=== PATIENT | male | born 1935 | race African-American/Black ===

== ENCOUNTER 2017-12-24 11:25 | Inpatient (IN) | payer MEDICARE ==
[2017-12-24 12:41] LABS: ADD MAN DIFF? NO
[2017-12-24 12:46] LABS: BASO % 0 % (0-3); EOS # 0.2 x10^3/uL (0.0-0.7); EOS % 3 % (0-3); HEMATOCRIT 36.2 % (39.0-53.0); HEMOGLOBIN 11.6 g/dL (13.0-17.5); LYMPH # 0.9 x10^3/uL (1.0-4.8); LYMPH % 15 % (24-48); MEAN CORPUSCULAR HEMOGLOBIN 30 pg (25-35); MEAN CORPUSCULAR HGB CONC 32 g/dL (31-37); MEAN CORPUSCULAR VOLUME 93 fL (79-100); MONO # 0.6 x10^3/uL (0.0-1.1); MONO % 9 % (0-9); NEUT # 4.6 x10^3uL (1.8-7.7); NEUT % 73 % (31-73); PLATELET COUNT 233 x10^3/uL (140-400); RED BLOOD COUNT 3.89 x10^6/uL (4.30-5.70); RED CELL DISTRIBUTION WIDTH 13.2 % (11.5-14.5); WHITE BLOOD COUNT 6.3 x10^3/uL (4.0-11.0)
[2017-12-24] MEDS: IV NORMAL SALINE 1000ML BAG 1,000 ML IV (12:46)
[2017-12-24] MEDS: amLODIPine BESYLATE 5 MG TABLET PO (12:47)
[2017-12-24] MEDS: SODIUM POLYSTYRENE SULFONATE 15 GM/60 ML ORAL.SUSP. PO (12:47)
[2017-12-24] MEDS: ASPIRIN 325 MG TABLET PO (12:47)
[2017-12-24 13:08] LABS: ALBUMIN 3.1 g/dL (3.4-5.0); ALBUMIN/GLOBULIN RATIO 0.8 (1.0-1.7); ALK PHOS 145 U/L (46-116); ALT (SGPT) 17 U/L (16-63); ANION GAP 13 (6-14); AST (SGOT) 11 U/L (15-37); BLOOD UREA NITROGEN 29 mg/dL (8-26); BUN/CREATININE RATIO 14 (6-20); CALCIUM 6.5 mg/dL (8.5-10.1); CARBON DIOXIDE 19 mmol/L (21-32); CHLORIDE 112 mmol/L (98-107); CREATININE 2.1 mg/dL (0.7-1.3); GFR 36.7; GLUCOSE 115 mg/dL (70-99); MAGNESIUM 1.4 mg/dL (1.8-2.4); PHOSPHORUS 4.2 mg/dL (2.6-4.7); POTASSIUM 5.3 mmol/L (3.5-5.1); SODIUM 144 mmol/L (136-145); TOTAL BILIRUBIN 0.4 mg/dL (0.2-1.0); TOTAL PROTEIN 7.1 g/dL (6.4-8.2)
[2017-12-24 13:18] LABS: THYROID STIM HORMONE (TSH) 2.183 uIU/mL (0.358-3.74)
[2017-12-24 15:27] LABS: BILIRUBIN,URINE NEGATIVE (NEG); CLARITY,URINE CLEAR; COLOR,URINE YELLOW; GLUCOSE,URINE NEGATIVE (NEG); NITRITE,URINE NEGATIVE (NEG); PH,URINE 6.5; PROTEIN,URINE 100 mg/dL (NEG-TRACE)
[2017-12-24 15:37] LABS: BACTERIA,URINE 0 /HPF (0-FEW); RBC,URINE OCC /HPF (0-2); SQUAMOUS EPITHELIAL CELL,UR FEW /LPF
[2017-12-24] MEDS: MAGNESIUM SULFATE 2GM 50 ML IV (15:48)
[2017-12-24] MEDS: CALCIUM CARBONATE 500 MG TABLET PO (17:46)
[2017-12-25 05:35] LABS: ANION GAP 11 (6-14); BLOOD UREA NITROGEN 23 mg/dL (8-26); CALCIUM 6.5 mg/dL (8.5-10.1); CARBON DIOXIDE 23 mmol/L (21-32); CHLORIDE 113 mmol/L (98-107); CREATININE 1.9 mg/dL (0.7-1.3); GFR 41.2; GLUCOSE 84 mg/dL (70-99); POTASSIUM 3.7 mmol/L (3.5-5.1); SODIUM 147 mmol/L (136-145)
[2017-12-25 05:54] LABS: MAGNESIUM 1.8 mg/dL (1.8-2.4)
[2017-12-25] MEDS: ASPIRIN 325 MG TABLET PO (08:24)
[2017-12-25] MEDS: amLODIPine BESYLATE 5 MG TABLET PO (08:25)
[2017-12-25] MEDS: CALCIUM CARBONATE 500 MG TABLET PO ×3 (08:25→17:42)
[2017-12-25] MEDS: ACETAMINOPHEN 325 MG TABLET. PO (08:26)
[2017-12-25] MEDS ORDERED: MAGNESIUM SULFATE 2GM 50 ML IV (12:30)
[2017-12-25 12:58] LABS: LIPASE 150 U/L (73-393)
[2017-12-25 12:58] LABS: ALBUMIN 2.9 g/dL (3.4-5.0)
[2017-12-25 13:22] LABS: LACTATE DEHYDROGENASE 296 U/L (85-227)
[2017-12-25 13:22] LABS: URIC ACID 6.1 mg/dL (3.5-7.2)
[2017-12-25] MEDS: CALCIUM GLUCONATE 1,000 MG/10 ML VIAL. IVP (13:23)
[2017-12-25] MEDS: ATORVASTATIN CALCIUM 20 MG TABLET PO (21:34)
[2017-12-26 03:19] LABS: TOTAL PROTEIN CREATININE RATIO 2361 mg/g creat (0-200); UR CREATININE RD 72.9 mg/dL (Not Estab.); UR PROTEIN RD 172.1 mg/dL (Not Estab.)
[2017-12-26 06:00] LABS: HEMOGLOBIN 11.3 g/dL (13.0-17.5)
[2017-12-26 06:16] LABS: HCV ANTIBODY <0.1 s/co ratio (0.0-0.9); HEP A IGM ABDY Negative (Negative); HEP B SURFACE ABDY Reactive (.); HEP B SURFACE AG Negative (Negative)
[2017-12-26 06:31] LABS: ANION GAP 9 (6-14); BLOOD UREA NITROGEN 25 mg/dL (8-26); CARBON DIOXIDE 24 mmol/L (21-32); CHLORIDE 113 mmol/L (98-107); CREATININE 1.8 mg/dL (0.7-1.3); GFR 43.8; GLUCOSE 92 mg/dL (70-99); PHOSPHORUS 3.5 mg/dL (2.6-4.7); SODIUM 146 mmol/L (136-145)
[2017-12-26 06:33] LABS: CREATINE KINASE 100 U/L (39-308)
[2017-12-26 06:33] LABS: MAGNESIUM 1.8 mg/dL (1.8-2.4)
[2017-12-26] MEDS: ASPIRIN 325 MG TABLET PO (08:40)
[2017-12-26] MEDS: ACETAMINOPHEN 325 MG TABLET. PO (08:40)
[2017-12-26] MEDS: CALCIUM CARBONATE 500 MG TABLET PO ×2 (08:41→13:17)
[2017-12-26] MEDS ORDERED: APIXABAN 2.5 MG TABLET. PO (14:30)
[2017-12-26 17:10] LABS: CALCIUM PTH 7.2 mg/dL (8.6-10.2); CREATININE PTH 1.89 mg/dL (0.76-1.27); PHOSPHORUS PTH 3.9 mg/dL (2.5-4.5); PTH INTACT 321 pg/mL (15-65); eGFR AFRICAN-AMER 37 (>59); eGFR NON AFRICAN-AMER 32 (>59)
[2017-12-27 12:09] LABS: CREAT CLEAR 24 39 mL/min (97-137); CREATININE UR 24HR 919 mg/24 hr (1000-2000); PROTEIN 24 HR UR 2169 mg/24 hr (30-150); TOTAL SERUM CREATININE 1.64 mg/dL (0.76-1.27); TOTAL URINE CREATININE 51.8 mg/dL (Not Estab.); UR PROTEIN 122.2 mg/dL (Not Estab.); eGFR AFRICAN-AMER 44 (>59); eGFR NON AFRICAN-AMER 38 (>59)
== END 2017-12-26 16:41 | disposition home or self-care (01) | DRG 683 ==
LOC: 5 NORTH 11:25
DX: N17.9 Acute kidney failure, unspecified (principal); E87.0 Hyperosmolality and hypernatremia; E83.42 Hypomagnesemia; E87.5 Hyperkalemia; I48.0 Paroxysmal atrial fibrillation; E78.5 Hyperlipidemia, unspecified; E83.51 Hypocalcemia; I12.9 Hypertensive chronic kidney disease with stage 1 through stage 4 chronic kidney disease, or unspecified chronic kidney disease; N28.1 Cyst of kidney, acquired; I25.10 Atherosclerotic heart disease of native coronary artery without angina pectoris; J44.9 Chronic obstructive pulmonary disease, unspecified; M19.90 Unspecified osteoarthritis, unspecified site; N18.3 Chronic kidney disease, stage 3 (moderate); F17.210 Nicotine dependence, cigarettes, uncomplicated; Z91.19 Patient's noncompliance with other medical treatment and regimen; Z95.5 Presence of coronary angioplasty implant and graft; Z82.49 Family history of ischemic heart disease and other diseases of the circulatory system
CPT/HCPCS: 36415; 71046; 76770; 80048; 80053; 80069; 80074; 81001; 82040; 82550; 82570; 82575; 83615; 83690; 83735; 83970; 84100; 84156; 84443; 84550; 85018; 85025; 86704; 86706; 93005; 97161-GP; 97165-GO; J0610; J3475; J7030

== ENCOUNTER 2018-07-07 15:14 | Inpatient (IN) | payer MEDICARE ==
[~2018-07-07] VITALS: Ht 177.8 cm; Wt 76.2 kg
[~2018-07-07 15:14] MED LIST: ACET325T9 PO; AMLO5TAB7 PO; ASPI325T8 PO; ATOR20TA58 PO; CALC500T13 PO; FERR-36 PO; IBUP200C9 PO; OXYC-328 PO; SILD100T PO
[2018-07-07 15:44] LABS: BASO % 1 % (0-3); EOS # 0.1 x10^3/uL (0.0-0.7); EOS % 1 % (0-3); HEMOGLOBIN 11.9 g/dL (13.0-17.5); LYMPH # 1.4 x10^3/uL (1.0-4.8); LYMPH % 20 % (24-48); MEAN CORPUSCULAR HEMOGLOBIN 30 pg (25-35); MEAN CORPUSCULAR HGB CONC 32 g/dL (31-37); MEAN CORPUSCULAR VOLUME 93 fL (79-100); MONO # 0.5 x10^3/uL (0.0-1.1); MONO % 8 % (0-9); NEUT % 71 % (31-73); PLATELET COUNT 284 x10^3/uL (140-400); RED BLOOD COUNT 3.99 x10^6/uL (4.30-5.70); RED CELL DISTRIBUTION WIDTH 13.4 % (11.5-14.5); WHITE BLOOD COUNT 7.1 x10^3/uL (4.0-11.0)
[2018-07-07] MEDS ORDERED: IV NORMAL SALINE 500ML BAG 500 ML IV ONE (15:45)
[2018-07-07 15:53] LABS: PROTHROMBIN TIME PATIENT 13.7 SEC (11.7-14.0)
[2018-07-07] MEDS: dilTIAZem INJ 125 MG in IV DEXTROSE 5% 100ML 100 ML IV PRN ×2 (15:56→23:20)
[2018-07-07 15:57] LABS: CALCIUM 7.6 mg/dL (8.5-10.1); CREATININE 2.2 mg/dL (0.7-1.3); GFR 34.7; POTASSIUM 5.6 mmol/L (3.5-5.1)
--- NOTE | 2018-07-07 15:59 | RAD ---
Portable chest, 07/07/2018: HISTORY: Weakness, shortness of breath Comparison is made to a study from 12/24/2017. The heart is at the upper limits of normal in size. There is calcific plaquing and tortuosity of the thoracic aorta. The pulmonary vascularity is normal. No pulmonary infiltrate is seen. There is no evidence of pleural fluid. IMPRESSION: No acute cardiopulmonary abnormality is detected. Electronically signed by: Lyle Hernandez MD (07/07/2018 3:55 PM) [facility]
[2018-07-07 16:03] LABS: ALBUMIN 3.4 g/dL (3.4-5.0); MAGNESIUM 1.6 mg/dL (1.8-2.4); TOTAL BILIRUBIN 0.3 mg/dL (0.2-1.0); TOTAL PROTEIN 6.9 g/dL (6.4-8.2)
[2018-07-07] MEDS ORDERED: dilTIAZem IV PUSH 25 MG/5 ML VIAL IVP ONE (16:15)
--- NOTE | 2018-07-07 16:26 | PDOC2 ---
LENA KAUR DELINQUENCY PREVENTION OFFICER 07/07/18 1626: CARDIAC CONSULT DATE OF CONSULT Date of Consult DATE: 07/07/18 TIME: 16:13 REASON FOR CONSULT Reason for Consult: Atrial flutter with RVR REFERRING PHYSICIAN Referring Physician: Everton SOURCE Source: Chart review, Patient HISTORY OF PRESENT ILLNESS HISTORY OF PRESENT ILLNESS This is a pleasant 83 yo AA male admitted for complains of feeling fatigue and palpitations. Pt's just Thursday and has been a stressful week for him. His prepares his medications and it has been 3 days since he took his last regular medications. Since his he has been feeling fatigue but denies being depressed. They have been for 52 yrs. Reports that his symptoms progressed to which he started having intermittent palpitations then DAMIAN but not with rest. Also started to have intermittent chest tightness. He went to his PCP today and was noted with atrial at fast rate prompting this admission. Presently he is not SOA and no CP and his HR is in the 150s. He denies any nausea, vomiting recent fever or chills but has not been drinking fluids adequately. To add prior to his spouses passing he has been doing well, with no symptoms and good activity tolerance. PAST MEDICAL HISTORY Cardiovascular: HTN, Hyperlipidemia Musculoskeletal: Osteoarthritis, Other (fall) Renal/: Chronic renal insuff, Other (bilateral renal cysts) PAST SURGICAL HISTORY Past Surgical History: Arthroscopy (right hip repair from fracture) FAMILY HISTORY Family History: Hypertension SOCIAL HISTORY Smoke: <1 pack per day ALCOHOL: none Drugs: None Lives: Alone CURRENT MEDICATIONS CURRENT MEDICATIONS Current Medications Medications (Trade) Dose Ordered Sig/Katelynn Route PRN Reason Start Time Stop Time Status Last Admin Dose Admin Diltiazem HCl 125 mg/Dextrose 125 ml @ 5 mls/hr CONT PRN IV SEE I/O RECORD 07/07/18 15:45 07/07/18 15:56 Diltiazem HCl (Cardizem) 20 mg 1X ONCE IVP 07/07/18 16:15 07/07/18 16:16 07/07/18 15:53 Sodium Chloride 500 ml @ 500 mls/hr 1X ONCE IV 07/07/18 15:45 07/07/18 16:44 07/07/18 15:55 ALLERGIES ALLERGIES: Coded Allergies: No Known Drug Allergies (Unverified , 07/28/17) ROS Review of System 14 point ROS evaluated with pertinent positives noted per HPI PHYSICAL EXAM General: Alert, Oriented X3, Cooperative, No acute distress HEENT: Atraumatic, Mucous membr. moist/pink Lungs: Clear to auscultation, Normal air movement Heart: Regular rate (Atrial flutter RVR) Abdomen: Soft, No tenderness Extremities: No cyanosis, No edema Skin: No breakdown, No significant lesion Neuro: Normal speech, Sensation intact Psych/Mental Status: Mental status NL, Mood NL MUSCULOSKELETAL: Osteoarthritic changes both hands VITALS VITALS Vital Signs Date Time Temp Pulse Resp B/P (MAP) Pulse Ox O2 Delivery O2 Flow Rate FiO2 07/07/18 15:53 162 136/95 07/07/18 15:18 99.0 20 98 Room Air 99.0 LABS Lab: Laboratory Tests Test 07/07/18 15:30 White Blood Count 7.1 x10^3/uL (4.0-11.0) Red Blood Count 3.99 x10^6/uL (4.30-5.70) Hemoglobin 11.9 g/dL (13.0-17.5) Hematocrit 37.0 % (39.0-53.0) Mean Corpuscular Volume 93 fL (79-100) Mean Corpuscular Hemoglobin 30 pg (25-35) Mean Corpuscular Hemoglobin Concent 32 g/dL (31-37) Red Cell Distribution Width 13.4 % (11.5-14.5) Platelet Count 284 x10^3/uL (140-400) Neutrophils (%) (Auto) 71 % (31-73) Lymphocytes (%) (Auto) 20 % (24-48) Monocytes (%) (Auto) 8 % (0-9) Eosinophils (%) (Auto) 1 % (0-3) Basophils (%) (Auto) 1 % (0-3) Neutrophils # (Auto) 5.0 x10^3uL (1.8-7.7) Lymphocytes # (Auto) 1.4 x10^3/uL (1.0-4.8) Monocytes # (Auto) 0.5 x10^3/uL (0.0-1.1) Eosinophils # (Auto) 0.1 x10^3/uL (0.0-0.7) Basophils # (Auto) 0.0 x10^3/uL (0.0-0.2) Prothrombin Time 13.7 SEC (11.7-14.0) Prothromb Time International Ratio 1.1 (0.8-1.1) Sodium Level 145 mmol/L (136-145) Potassium Level 5.6 mmol/L (3.5-5.1) Chloride Level 113 mmol/L (98-107) Carbon Dioxide Level 17 mmol/L (21-32) Anion Gap 15 (6-14) Blood Urea Nitrogen 37 mg/dL (8-26) Creatinine 2.2 mg/dL (0.7-1.3) Estimated GFR (Cockcroft-Gault) 34.7 BUN/Creatinine Ratio 17 (6-20) Glucose Level 104 mg/dL (70-99) Calcium Level 7.6 mg/dL (8.5-10.1) Magnesium Level 1.6 mg/dL (1.8-2.4) Total Bilirubin 0.3 mg/dL (0.2-1.0) Aspartate Amino Transf (AST/SGOT) 16 U/L (15-37) Alanine Aminotransferase (ALT/SGPT) 15 U/L (16-63) Alkaline Phosphatase 134 U/L (46-116) Troponin I Quantitative 1.391 ng/mL (0.000-0.055) Total Protein 6.9 g/dL (6.4-8.2) Albumin 3.4 g/dL (3.4-5.0) Albumin/Globulin Ratio 1.0 (1.0-1.7) Ethyl Alcohol Level < 10 mg/dL (0-10) ASSESSMENT/PLAN ASSESSMENT/PLAN 1. Atrial flutter with RVR: NEW. in the setting of F&E abnormalities 2. NSTEMI: initial trop 1.3. EKG Atrial flutter with RVR. CP free. likely demand mediated with arrhythmia and XUAN 3. XUAN on CKD3: with associated poor po hydration 4. Mild hyperkalemia/Hypomagnesemia 5. Grief: spouse last Thursday 6. Suspect Undiagnosed COPD with continued tobaccoism 7. Previously noted WAP/MAT: failed to follow up in office with planned outpt event monitor and also stopped taking his cardizem Recommendations 1. TTE. TSH, lipids, UA. Trend troponin 2. IV hydrate. Cardizem drip. Heparin drip. x1 ASA. Dig IV x1. 3. Kayexelate and Mg replacement 4. Ischemic workup when arrhythmia/ F& E imbalance are corrected. . 5. NPO after MN . Will eval tomorrow for potential need of.SILVIA/CVN 6. Discussed smoking cessation and compliance. SHALONDA SMITH MD 07/08/18 0757: CARDIAC CONSULT ASSESSMENT/PLAN ASSESSMENT/PLAN Patient seen and examined 07/07/18 (late entry). Agree with CUT PRESSMAN's assessment and plan. New onset atrial flutter with RVR Titrate intravenous Cardizem drip for better rate control and add digoxin if needed If heart rate is not well controlled by tomorrow, we will consider SILVIA cardioversion. Continue heparin infusion per protocol. Non-STEMI probably secondary to RVR. Plan ischemic workup once electrolytes stabilized Check 2-D echo to assess LV systolic function Thank you for your consultation LENA KAUR APRN Jul 07, 2018 16:26 SHALONDA SMITH MD Jul 08, 2018 07:57
[2018-07-07] MEDS ORDERED: HEPARIN for IV BOLUS 10,000 UNIT/10 ML VIAL. IV PRN (16:30)
--- NOTE | 2018-07-07 16:30 | PHYS DOC ---
Past Medical History Past Medical History: Diabetes-Type II, Hypertension Past Surgical History: No Surgical History, Other Additional Past Surgical Histo: PLATE R HIP S/P FALL Alcohol Use: None Drug Use: None Adult General Chief Complaint Chief Complaint: RAPID HEART RATE [facility] HPI Patient is a 83 year old male referred in by Dr. GAMINO for fast heart rate. This patient just lost his on Thursday he has had intermittently compliant with his medication he has also had decreased by mouth intake he denies any alcohol use he denies any previous history of atrial fibrillation or flutter he says he feels a little lightheaded but he actually is not having any chest pain no shortness of breath he doesn't even feel any palpitations he has had no fever just some mild weakness overall. No ABDOMINAL PAIN or vomiting. Review of Systems Review of Systems Constitutional: Denies fever or chills [] Eyes: Denies change in visual acuity, redness, or eye pain [] HENT: Denies nasal congestion or sore throat [] Cardiovascular: No additional information not addressed in HPI [] GI: Denies abdominal pain, nausea, vomiting, bloody stools or diarrhea [] : Denies dysuria or hematuria [] Musculoskeletal: Denies back pain or joint pain [] Integument: Denies rash or skin lesions [] Neurologic: Denies headache, focal weakness or sensory changes [] Endocrine: Denies polyuria or polydipsia [] All other systems were reviewed and found to be within normal limits, except as documented in this note. Current Medications Current Medications Allergies Allergies Allergies Coded Allergies Type Severity Reaction Last Updated Verified No Known Drug Allergies 07/28/17 No Physical Exam Physical Exam Constitutional: Well developed, well nourished, no acute distress, non-toxic appearance. [] HENT: Normocephalic, atraumatic, bilateral external ears normal, oropharynx moist, no oral exudates, nose normal. [] Eyes: PERRLA, EOMI, conjunctiva normal, no discharge. [] Neck: Normal range of motion, no tenderness, supple, no stridor. [] Cardiovascular:TACHY IRREGULAR. Lungs & Thorax: Bilateral breath sounds clear to auscultation [] Abdomen: Bowel sounds normal, soft, no tenderness, no masses, no pulsatile masses. [] Skin: Warm, dry, no erythema, no rash. [] SCATTERED SKINTAGS Back: No tenderness, no CVA tenderness. [] Extremities: No tenderness, no cyanosis, no clubbing, ROM intact, 1 PLUS Neurologic: Alert and oriented X 3, normal motor function, normal sensory function, no focal deficits noted. [] Psychologic: Affect normal, judgement normal, mood normal. [] Current Patient Data Vital Signs Vital Signs Date Time Temp Pulse Resp B/P (MAP) Pulse Ox O2 Delivery O2 Flow Rate FiO2 07/07/18 15:18 99.0 160 20 145/98 (114) 98 Room Air 99.0 Lab Values Laboratory Tests Test 07/07/18 15:30 White Blood Count 7.1 x10^3/uL (4.0-11.0) Red Blood Count 3.99 x10^6/uL (4.30-5.70) L Hemoglobin 11.9 g/dL (13.0-17.5) L Hematocrit 37.0 % (39.0-53.0) L Mean Corpuscular Volume 93 fL (79-100) Mean Corpuscular Hemoglobin 30 pg (25-35) Mean Corpuscular Hemoglobin Concent 32 g/dL (31-37) Red Cell Distribution Width 13.4 % (11.5-14.5) Platelet Count 284 x10^3/uL (140-400) Neutrophils (%) (Auto) 71 % (31-73) Lymphocytes (%) (Auto) 20 % (24-48) L Monocytes (%) (Auto) 8 % (0-9) Eosinophils (%) (Auto) 1 % (0-3) Basophils (%) (Auto) 1 % (0-3) Neutrophils # (Auto) 5.0 x10^3uL (1.8-7.7) Lymphocytes # (Auto) 1.4 x10^3/uL (1.0-4.8) Monocytes # (Auto) 0.5 x10^3/uL (0.0-1.1) Eosinophils # (Auto) 0.1 x10^3/uL (0.0-0.7) Basophils # (Auto) 0.0 x10^3/uL (0.0-0.2) Prothrombin Time 13.7 SEC (11.7-14.0) Prothrombin Time INR 1.1 (0.8-1.1) Sodium Level 145 mmol/L (136-145) Potassium Level 5.6 mmol/L (3.5-5.1) H Chloride Level 113 mmol/L (98-107) H Carbon Dioxide Level 17 mmol/L (21-32) L Anion Gap 15 (6-14) H Blood Urea Nitrogen 37 mg/dL (8-26) H Creatinine 2.2 mg/dL (0.7-1.3) H Estimated GFR (Cockcroft-Gault) 34.7 BUN/Creatinine Ratio 17 (6-20) Glucose Level 104 mg/dL (70-99) H Calcium Level 7.6 mg/dL (8.5-10.1) L Magnesium Level 1.6 mg/dL (1.8-2.4) L Total Bilirubin 0.3 mg/dL (0.2-1.0) Aspartate Amino Transferase (AST) 16 U/L (15-37) Alanine Aminotransferase (ALT) 15 U/L (16-63) L Alkaline Phosphatase 134 U/L (46-116) H Troponin I Quantitative 1.391 ng/mL (0.000-0.055) RW-Nwo-P-Type Natriuretic Peptide 5399 pg/mL (0-449) H Total Protein 6.9 g/dL (6.4-8.2) Albumin 3.4 g/dL (3.4-5.0) Albumin/Globulin Ratio 1.0 (1.0-1.7) Triglycerides Level 105 mg/dL (0-150) Cholesterol Level 227 mg/dL (0-200) H LDL Cholesterol, Calculated 149 mg/dL (0-100) H VLDL Cholesterol, Calculated 21 mg/dL (0-40) Non-HDL Cholesterol Calculated 170 mg/dL (0-129) H HDL Cholesterol 57 mg/dL (40-60) Cholesterol/HDL Ratio 4.0 Thyroid Stimulating Hormone (TSH) 2.221 uIU/mL (0.358-3.74) Ethyl Alcohol Level < 10 mg/dL (0-10) Laboratory Tests 07/07/18 15:30 Laboratory Tests 07/07/18 15:30 EKG EKG []Probably a flutter rate 160 QRS 120 regular I suspect underlying flutter waves there are some ST changes laterally that are probably rate related every by me the time of encounter Radiology/Procedures Radiology/Procedures [] Impressions: Comparison is made to a study from 12/24/2017. The heart is at the upper limits of normal in size. There is calcific plaquing and tortuosity of the thoracic aorta. The pulmonary vascularity is normal. No pulmonary infiltrate is seen. There is no evidence of pleural fluid. IMPRESSION: No acute cardiopulmonary abnormality is detected. Electronically signed by: Lyle Hernandez MD (07/07/2018 3:55 PM) [facility] DICTATED and SIGNED BY: LYLE HERNANDEZ MD DATE: 07/07/18 1550 Course & Med Decision Making Course & Med Decision Making Pertinent Labs and Imaging studies reviewed. (See chart for details) []83-year-old male presenting with tachycardia FOUND to be afib/flutter. trop elevated. i ordered dilt drip. also ordered heparin drip BNP also elevated. Patient is seen in the emergency room by the cardiology service including Dr. collins Patient be admitted for further evaluation and treatment including rate control etc. no cp or hypoxia to suspect pe as etiology just raised some concern for [place]so[place] but aflutter seem more likely etiology of the trop leak. Noted the abnormal electrolytes it appears the cardiology nurse practitioner is writing some orders to treat those Admitted to Dr. gamino. Critical care time was 40 minutes exclusive of procedures. Dragon Disclaimer Dragon Disclaimer This electronic medical record was generated, in whole or in part, using a voice recognition dictation system. Departure Departure Impression: Primary Impression: Atrial flutter Disposition: ADMITTED INPATIENT Admitting Physician: Glen Gamino Condition: STABLE Referrals: GLEN GAMINO MD (PCP) ALONDRA GARCIA MD Jul 07, 2018 16:30
[2018-07-07] MEDS: HEPARIN 25,000UTS/500ML PREMIX 500 ML IV PRN (16:36)
[2018-07-07] MEDS ORDERED: HEPARIN for IV BOLUS 10,000 UNIT/10 ML VIAL. IV ONE (16:45)
[2018-07-07] MEDS ORDERED: SODIUM POLYSTYRENE SULFONATE 15 GM/60 ML ORAL.SUSP. PO ONE (17:00)
[2018-07-07] MEDS ORDERED: ASPIRIN ENTERIC COATED 325 MG TABLET.DR. PO ONE (17:00)
[2018-07-07] MEDS ORDERED: DIGOXIN IV 500 MCG/2 ML AMPUL. IV ONE (17:00)
[2018-07-07] MEDS ORDERED: IV NORMAL SALINE 1000ML BAG 1,000 ML IV ONE (17:00)
[2018-07-07] MEDS ORDERED: MAGNESIUM SULFATE 2GM 50 ML IV ONE (17:00)
--- NOTE | 2018-07-07 18:25 | EKG ---
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
[2018-07-07 18:34] VITALS: BP 122/93
[2018-07-07 20:00] VITALS: BP 134/82
[2018-07-07] MEDS ORDERED: SODI650T PO (20:05)
[2018-07-07] MEDS ORDERED: AMLO5TAB7 PO (20:05)
[2018-07-07 21:00] VITALS: BP 132/75
[2018-07-07] MEDS ORDERED: oxyCODONE/APAP 10/325 1 TAB TABLET PO PRN (21:15)
[2018-07-07] MEDS: SODIUM BICARBONATE 650 MG TABLET. PO SCH (21:46)
[2018-07-07] MEDS: ATORVASTATIN CALCIUM 20 MG TABLET PO SCH (21:46)
[2018-07-07 22:00] VITALS: BP 126/82
[2018-07-07 23:00] VITALS: BP 110/76
[2018-07-07 23:06] VITALS: BP 122/78
[2018-07-08] VITALS (9 sets, daily range): BP systolic 108–168; BP diastolic 72–94
[2018-07-08] MEDS ORDERED: IV NORMAL SALINE 1000ML BAG 1,000 ML IV PRN (03:00)
[2018-07-08 04:12] LABS: HEMATOCRIT 32.4 % (39.0-53.0); HEMOGLOBIN 10.7 g/dL (13.0-17.5); RED BLOOD COUNT 3.5 x10^6/uL (4.30-5.70); RED CELL DISTRIBUTION WIDTH 13.3 % (11.5-14.5); WHITE BLOOD COUNT 5.7 x10^3/uL (4.0-11.0)
[2018-07-08 05:24] LABS: CALCIUM 6.8 mg/dL (8.5-10.1); CREATININE 2.1 mg/dL (0.7-1.3); GFR 36.6; POTASSIUM 4.8 mmol/L (3.5-5.1)
[2018-07-08] MEDS ORDERED: 0.9 % SODIUM CHLORIDE 10 ML DISP.SYRIN. IV PRN (07:30)
[2018-07-08] MEDS: dilTIAZem INJ 125 MG in IV DEXTROSE 5% 100ML 100 ML IV PRN (08:14)
[2018-07-08] MEDS: SODIUM BICARBONATE 650 MG TABLET. PO SCH ×2 (08:15→21:01)
--- NOTE | 2018-07-08 08:24 | EKG ---
[facility] [address] [place] [address] Test Date: 2018-07-08 Test Time: 07:46:24 Pat Name: SOLO YI Department: Room: 206 1 Gender: M Counter Weigher: NAVIN : 1935 Requested By: RIDGE OROPEZA Order Number: [id number] Reading MD: Cedrick Beltran MD Measurements Intervals [place] Rate: 153 P: 90 ND: 62 QRS: 0 QRSD: 86 T: -152 QT: 264 QTc: 426 Interpretive Statements SUPRAVENTRICULAR TACHYCARDIA PROBABLE ATRIAL FLUTTER Electronically Signed On 07-12-2018 10:57:20 CDT by Cedrick Beltran MD
[2018-07-08] MEDS ORDERED: CALCIUM GLUCONATE 1,000 MG in IV DEXTROSE 5% 100ML 100 ML IV ONE (08:30)
[2018-07-08] MEDS ORDERED: LIDOCAINE 2% VISCOUS 15 ML SOLUTION. SWSW ONE (08:45)
[2018-07-08] MEDS ORDERED: LIDOCAINE 2% TOPICAL JELLY 30GM TUBE. TP ONE (08:45)
[2018-07-08] MEDS ORDERED: BENZOCAINE ONE 20% MUCOSAL SPRAY. MM (08:45)
[2018-07-08] MEDS ORDERED: ASPIRIN 325 MG TABLET PO SCH (09:00)
[2018-07-08] MEDS ORDERED: ATORVASTATIN CALCIUM 20 MG TABLET PO SCH (09:00)
[2018-07-08] MEDS ORDERED: amLODIPine BESYLATE 5 MG TABLET PO SCH (09:00)
--- NOTE | 2018-07-08 09:31 | PDOC ---
LENA KAUR INSECTICIDE EXPERT 07/08/18 0931: CARDIO Progress Notes Date and Time Date of Service 07/08/2018 Time of Evaluation 0820 Subjective Subjective: No Chest Pain, No shortness of breath, No Palpitations Vitals Vitals Vital Signs Date Time Temp Pulse Resp B/P (MAP) Pulse Ox O2 Delivery O2 Flow Rate FiO2 07/08/18 06:00 122/78 (93) 07/08/18 04:00 156 07/08/18 02:00 98.5 16 97 Room Air 98.5 Weight Weight [ ] Input and Output Intake and Output Intake and Output 07/08/18 07:00 Intake Total 2402 ml Output Total 1075 ml Balance 1327 ml Intake Oral 400 ml IV Total 2002 ml Output Urine Total 1075 ml # Voids 1 # Bowel Movements 1 Laboratory Labs Laboratory Tests Test 07/07/18 15:30 07/07/18 21:06 07/07/18 21:40 07/08/18 03:30 White Blood Count 7.1 x10^3/uL (4.0-11.0) 5.7 x10^3/uL (4.0-11.0) Red Blood Count 3.99 x10^6/uL (4.30-5.70) 3.50 x10^6/uL (4.30-5.70) Hemoglobin 11.9 g/dL (13.0-17.5) 10.7 g/dL (13.0-17.5) Hematocrit 37.0 % (39.0-53.0) 32.4 % (39.0-53.0) Mean Corpuscular Volume 93 fL (79-100) 93 fL (79-100) Mean Corpuscular Hemoglobin 30 pg (25-35) 31 pg (25-35) Mean Corpuscular Hemoglobin Concent 32 g/dL (31-37) 33 g/dL (31-37) Red Cell Distribution Width 13.4 % (11.5-14.5) 13.3 % (11.5-14.5) Platelet Count 284 x10^3/uL (140-400) 236 x10^3/uL (140-400) Neutrophils (%) (Auto) 71 % (31-73) Lymphocytes (%) (Auto) 20 % (24-48) Monocytes (%) (Auto) 8 % (0-9) Eosinophils (%) (Auto) 1 % (0-3) Basophils (%) (Auto) 1 % (0-3) Neutrophils # (Auto) 5.0 x10^3uL (1.8-7.7) Lymphocytes # (Auto) 1.4 x10^3/uL (1.0-4.8) Monocytes # (Auto) 0.5 x10^3/uL (0.0-1.1) Eosinophils # (Auto) 0.1 x10^3/uL (0.0-0.7) Basophils # (Auto) 0.0 x10^3/uL (0.0-0.2) Prothrombin Time 13.7 SEC (11.7-14.0) Prothromb Time International Ratio 1.1 (0.8-1.1) Sodium Level 145 mmol/L (136-145) 146 mmol/L (136-145) Potassium Level 5.6 mmol/L (3.5-5.1) 4.8 mmol/L (3.5-5.1) Chloride Level 113 mmol/L (98-107) 113 mmol/L (98-107) Carbon Dioxide Level 17 mmol/L (21-32) 17 mmol/L (21-32) Anion Gap 15 (6-14) 16 (6-14) Blood Urea Nitrogen 37 mg/dL (8-26) 35 mg/dL (8-26) Creatinine 2.2 mg/dL (0.7-1.3) 2.1 mg/dL (0.7-1.3) Estimated GFR (Cockcroft-Gault) 34.7 36.6 BUN/Creatinine Ratio 17 (6-20) Glucose Level 104 mg/dL (70-99) 93 mg/dL (70-99) Calcium Level 7.6 mg/dL (8.5-10.1) 6.8 mg/dL (8.5-10.1) Magnesium Level 1.6 mg/dL (1.8-2.4) 2.0 mg/dL (1.8-2.4) Total Bilirubin 0.3 mg/dL (0.2-1.0) Aspartate Amino Transf (AST/SGOT) 16 U/L (15-37) Alanine Aminotransferase (ALT/SGPT) 15 U/L (16-63) Alkaline Phosphatase 134 U/L (46-116) Troponin I Quantitative 1.391 ng/mL (0.000-0.055) 1.364 ng/mL (0.000-0.055) 1.215 ng/mL (0.000-0.055) SO-Ole-O-Type Natriuretic Peptide 5399 pg/mL (0-449) Total Protein 6.9 g/dL (6.4-8.2) Albumin 3.4 g/dL (3.4-5.0) Albumin/Globulin Ratio 1.0 (1.0-1.7) Triglycerides Level 105 mg/dL (0-150) Cholesterol Level 227 mg/dL (0-200) LDL Cholesterol, Calculated 149 mg/dL (0-100) VLDL Cholesterol, Calculated 21 mg/dL (0-40) Non-HDL Cholesterol Calculated 170 mg/dL (0-129) HDL Cholesterol 57 mg/dL (40-60) Cholesterol/HDL Ratio 4.0 Thyroid Stimulating Hormone (TSH) 2.221 uIU/mL (0.358-3.74) Ethyl Alcohol Level < 10 mg/dL (0-10) Glucose (Fingerstick) 160 mg/dL (70-99) Heparin Anti-Xa Act, Unfractionated 0.43 IU/mL (0.30-0.70) 0.22 IU/mL (0.30-0.70) Physical Exam HEENT: Neck Supple W Full Motion Chest: Symmetric LUNGS: Other ( with faint expiratory wheeze) Heart: other (aflutter with RVR with x1 brief with abberant conduction) Abdomen: Soft N/T Extremities: No Edema, No Calf Tenderness Neurology: alert, oriented, follow commands Other Exams No orthopnea and PND Assessment Assessment 1. Atrial flutter with RVR: NEW. Persistent despite dig and cardizem. 2. NSTEMI: peaked trop 1.3. EKG Atrial flutter with RVR. remains CP free. likely demand mediated with arrhythmia and XUAN 3. XUAN on CKD3: notable for renal cysts. Cr 2s despite IVF. Maybe his new baseline. 4. Mild hyperkalemia/Hypomagnesemia: resolved 5. Grief: spouse last Thursday 6. Suspect Undiagnosed COPD with continued tobaccoism 7. Previously noted WAP/MAT: failed to follow up in office with planned outpt event monitor and also stopped taking his cardizem 8. HLP Recommendations 1. Continue cardizem drip and heparin drip will transition to PO post SILVIA/CVN. Will consider for 2.5 mg bid eliquis. 2. Consult nephrology. Await TTE. Preliminary EF at 55%. Will plan for MPI once arrhythmia is controlled. 3. Replace Ca. No ACEi/ARB. Continue statin and ASA. 4. Reinforced smoking cessation and compliance. 5. SILVIA/CVN today, risks and benefits explained and agreeable to proceed. SHALONDA SMITH MD 07/08/18 4207: CARDIO Progress Notes Assessment Assessment Patient seen and examined. Agree with PUNCH FINISHER's assessment and plan. Patient had successful SILVIA guided cardioversion earlier today secondary to difficult to control heart rate LV systolic function was normal on TTE However, patient reverted back to atrial fibrillation Start amiodarone for rhythm maintenance Plan for Lexiscan nuclear stress test to rule out ischemia tomorrow We will change heparin to NOAC prior to discharge LENA KAUR APRN Jul 08, 2018 09:31 SHALONDA SMITH MD Jul 08, 2018 16:27
--- NOTE | 2018-07-08 09:36 | CARD ---
MR#: [id number] Date of Study: 07/08/2018 Ordering Physician: LENA KAUR, Referring Physician: RIDGE OROPEZA, Tech: Berta Gaviria APPROVED REPORT EXAM: Two-dimensional and M-mode echocardiogram with Doppler and color Doppler. Other Information Quality : GoodHR: 153bpm Rhythm : Atrial Fibrillation INDICATION Atrial Fibrillation 2D DIMENSIONS RVDd2.6 (2.9-3.5cm)Left Atrium(2D)4.6 (1.6-4.0cm) IVSd1.3 (0.7-1.1cm)Aortic Root(2D)3.7 (2.0-3.7cm) LVDd5.5 (3.9-5.9cm)LVOT Diameter2.2 (1.8-2.4cm) PWd1.3 (0.7-1.1cm)LVDs4.0 (2.5-4.0cm) FS (%) 26.5 %SV75.9 ml LVEF(%)51.3 (>50%) Aortic Valve AoV Peak Scottie.95.2cm/sAoV VTI16.5cm AO Peak GR.3.6mmHgLVOT VTI 12.34cm AO Mean GR.4mmHg Tricuspid Valve TR P. [id number] Peak Gr.50mmHg LEFT VENTRICLE The left ventricle is normal size. There is borderline to mild concentric left ventricular hypertroph y. Technically difficult study due to tachycardia but the mid to distal anteroseptal wall appears to be hypokinetic. The Ejection Fraction is estimated at 55%. Technically limited to high heart rate. Ca nnot be determined due to atrial fibrillation RIGHT VENTRICLE The right ventricle is normal size. There is normal right ventricular wall thickness. ATRIA The left atrium is mildly dilated. The right atrium size is normal. The interatrial septum is intact with no evidence for an atrial septal defect or patent foramen ovale as noted on 2-D or Doppler imagi ng. AORTIC VALVE The aortic valve is calcified but opens well. Doppler and Color Flow revealed trace aortic regurgitat ion. There is no significant aortic valvular stenosis. MITRAL VALVE The mitral valve is thickened but opens well. There is no mitral valve stenosis. Doppler and Color-fl ow revealed trace mitral regurgitation. TRICUSPID VALVE The tricuspid valve is normal in structure and function. Doppler and Color Flow revealed trace tricus pid regurgitation. There is no tricuspid valve stenosis. PULMONIC VALVE The pulmonary valve is normal in structure and function. Doppler and Color Flow revealed no pulmonic valvular regurgitation. GREAT VESSELS The aortic root is normal in size. The IVC was not visualized. PERICARDIAL EFFUSION There is no evidence of significant pericardial effusion. Critical Notification Critical Value: No <Conclusion> Technically difficult study due to tachycardia but the mid to distal anteroseptal wall appears to be hypokinetic. The Ejection Fraction is estimated at 55%. The left atrium is mildly dilated. Trace mitral regurgitation. Trace tricuspid regurgitation. There is no evidence of significant pericardial effusion. Signed by : Mehdi Cox, Electronically Approved : 07/08/2018 09:35:14
[2018-07-08] MEDS ORDERED: ONDANSETRON PF 4 MG/2 ML VIAL. IV PRN (09:45)
[2018-07-08] MEDS ORDERED: HYDROmorphone 2 MG/ML VIAL IV PRN (09:45)
[2018-07-08] MEDS ORDERED: PROCHLORPERAZINE 10 MG/2 ML VIAL. IV PRN (09:45)
[2018-07-08] MEDS ORDERED: fentaNYL PF VIAL 100 MCG/2 ML VIAL IV PRN ×2 (09:45)
[2018-07-08] MEDS ORDERED: IV RINGERS,LACTATED 1000ML 1,000 ML IV SCH (09:45)
[2018-07-08] MEDS ORDERED: LIDOCAINE 1% PF 2 ML VIAL. ID PRN (09:45)
[2018-07-08] MEDS ORDERED: MORPHINE SULFATE 2 MG/ML VIAL. IV PRN (09:45)
--- NOTE | 2018-07-08 10:38 | PDOC ---
Provider Note Provider Note H&P to be dictated.#[id number] RIDGE OROPEZA MD Jul 08, 2018 10:38
[2018-07-08] MEDS ORDERED: PROPOFOL 40 ML IV ONE (10:52)
--- NOTE | 2018-07-08 10:52 | PDOC2 ---
CONSULT Date of Consult Date of Consult DATE: 07/08/18 TIME: 10:47 Reason for Consult Reason for Consult: Xuan Identification/Chief Complaint Chief Complaint Fatigue Source Source: Chart review, Patient History of Present Illness Reason for Visit: Pt is a 83 yo AA male admitted for complains of feeling fatigue and palpitations. Pt's just Thursday and has been a stressful week for him. His filled his pill box and it has been 3 days since he took his last regular medications. Since his he has been feeling fatigue but denies being depressed. They have been for 52 yrs. Reports that his symptoms progressed to which he started having intermittent palpitations then DAMIAN but not with rest. Also started to have intermittent chest tightness. Presently he is not SOA and no CP He denies any nausea, vomiting recent fever or chills but has not been drinking fluids adequately. He states he is feeling better Now. No specific complaints . Denies any urinary complaints, No NSAID's He Recd Dig, Cardizem , Cardioverted this am . Past Medical History Cardiovascular: HTN, Hyperlipidemia Musculoskeletal: Osteoarthritis, Other (fall) Renal/: Chronic renal insuff, Other (bilateral renal cysts) Past Surgical History Past Surgical History: Arthroscopy (right hip repair from fracture) Family History Family History: Hypertension Social History <1 pack per day ALCOHOL: none Drugs: None Lives: Alone Current Problem List Problem List Problems Medical Problems: (1) Atrial flutter Status: Acute Current Medications Current Medications Current Medications Diltiazem HCl 125 mg/Dextrose 125 ml @ 5 mls/hr CONT PRN IV SEE I/O RECORD Last administered on 07/08/18at 08:14; Start 07/07/18 at 15:45 Diltiazem HCl (Cardizem) 20 mg 1X ONCE IVP Last administered on 07/07/18at 15: 53; Start 07/07/18 at 16:15; Stop 07/07/18 at 16:16; Status DC Sodium Chloride 500 ml @ 500 mls/hr 1X ONCE IV Last administered on at 15:55; Start 07/07/18 at 15:45; Stop 07/07/18 at 16:44; Status DC Heparin Sodium (Porcine) (Heparin Sodium) 4,000 unit 1X ONCE IV Last administered on 07/07/18at 16:34; Start 07/07/18 at 16:45; Stop 07/07/18 at 16:46 ; Status DC Heparin Sodium/ Dextrose 500 ml @ 0 mls/hr CONT PRN IV SEE I/O RECORD Last administered on 07/07/18at 16:36; Start 07/07/18 at 16:30 Heparin Sodium (Porcine) (Heparin Sodium) 2,150 unit PRN Q6HRS PRN IV FOR UFH LEVEL LESS THAN 0.2; Start 07/07/18 at 16:30 Sodium Chloride 1,000 ml @ 100 mls/hr 1X ONCE IV Last administered on at 17:22; Start 07/07/18 at 17:00; Stop 07/08/18 at 02:59; Status DC Magnesium Sulfate 50 ml @ 25 mls/hr 1X ONCE IV Last administered on 07/07/18at 17:17; Start 07/07/18 at 17:00; Stop 07/07/18 at 18:59; Status DC Sodium Polystyrene Sulfonate (Kayexalate) 15 gm 1X ONCE PO Last administered on 07/07/18at 17:42; Start 07/07/18 at 17:00; Stop 07/07/18 at 17:09; Status DC Digoxin (Lanoxin) 500 mcg 1X ONCE IV Last administered on 07/07/18at 17:14; Start 07/07/18 at 17:00; Stop 07/07/18 at 17:09; Status DC Sodium Chloride 1,000 ml @ 75 mls/hr CONT PRN IV SEE I/O RECORD Last administered on 07/08/18at 05:58; Start 07/08/18 at 03:00 Aspirin (Ecotrin) 325 mg 1X ONCE PO Last administered on 07/07/18at 17:42; Start 07/07/18 at 17:00; Stop 07/07/18 at 17:11; Status DC Amlodipine Besylate (Norvasc) 5 mg DAILY PO ; Start 07/08/18 at 09:00 Aspirin (Tone Aspirin) 325 mg DAILY PO Last administered on 07/08/18at 08:15; Start 07/08/18 at 09:00; Stop 07/08/18 at 09:30; Status DC Atorvastatin Calcium (Lipitor) 20 mg DAILY PO ; Start 07/08/18 at 09:00; Stop 07/08/18 at 09:00; Status DC Oxycodone/ Acetaminophen (Percocet 10/325) 1 tab PRN DAILY PRN PO PAIN; Start 07/07/18 at 21:15 Sodium Bicarbonate (Sodium Bicarbonate) 650 mg BID PO Last administered on 07/08at 08:15; Start 07/07/18 at 21:30 Atorvastatin Calcium (Lipitor) 20 mg HS PO Last administered on 07/07/18at 21:46 ; Start 07/07/18 at 21:15 Calcium Gluconate 1000 mg/Dextrose 110 ml @ 220 mls/hr 1X ONCE IV Last administered on 07/08/18at 08:08; Start 07/08/18 at 08:30; Stop 07/08/18 at 08:59 ; Status DC Sodium Chloride (Normal Saline Flush) 10 ml QSHIFT PRN IV AFTER MEDS AND BLOOD DRAWS; Start 07/08/18 at 07:30 Lidocaine HCl (Xylocaine 2% Topical 30gm Tube) 1 mckenna 1X ONCE TP ; Start at 08:45; Stop 07/08/18 at 08:46; Status DC Lidocaine HCl (Viscous Lidocaine) 15 ml 1X ONCE SWSW ; Start 07/08/18 at 08:45 ; Stop 07/08/18 at 08:46; Status DC Benzocaine (Hurricaine One) 3 spray 1X ONCE MM ; Start 07/08/18 at 08:45; Stop 07/08/18 at 08:46; Status DC Aspirin (Ecotrin) 81 mg DAILYWBKFT PO ; Start 07/09/18 at 08:00 Ondansetron HCl (Zofran) 4 mg PRN Q6HRS PRN IV NAUSEA/VOMITING; Start 07/08/18 at 09:45; Stop 07/08/18 at 18:00 Fentanyl Citrate (Fentanyl 2ml Vial) 25 mcg PRN Q5MIN PRN IV MILD PAIN; Start 07/08/18 at 09:45; Stop 07/08/18 at 18:00 Fentanyl Citrate (Fentanyl 2ml Vial) 50 mcg PRN Q5MIN PRN IV MODERATE TO SEVERE PAIN; Start 07/08/18 at 09:45; Stop 07/08/18 at 18:00 Morphine Sulfate (Morphine Sulfate) 1 mg PRN Q10MIN PRN IV SEVERE PAIN; Start 07/08/18 at 09:45; Stop 07/08/18 at 18:00 Ringer's Solution 1,000 ml @ 30 mls/hr Q24H IV ; Start 07/08/18 at 09:45; Stop 07/08/18 at 21:44 Lidocaine HCl (Xylocaine-Mpf 1% 2ml Vial) 2 ml 1X PRN PRN ID IV START; Start 07/08/18 at 09:45; Stop 07/08/18 at 18:00 Hydromorphone HCl (Dilaudid) 0.5 mg PRN Q10MIN PRN IV SEV PAIN, Second choice; Start 07/08/18 at 09:45; Stop 07/08/18 at 18:00 Prochlorperazine Edisylate (Compazine) 5 mg PACU PRN PRN IV NAUSEA, MRX1; Start 07/08/18 at 09:45; Stop 07/08/18 at 18:00 Active Scripts Active Reported Sodium Bicarbonate 650 Mg Tablet 1 Tab PO BID Amlodipine Besylate 5 Mg Tablet 5 Mg PO DAILY Atorvastatin Calcium 20 Mg Tablet 1 Tab PO DAILY Percocet 10-325 Mg Tablet (Oxycodone/Acetaminophen) 1 Each Tablet 1 Tab PO PRN DAILY PRN Aspirin 325 Mg Tablet 1 Tab PO DAILY Allergies Allergies: Coded Allergies: No Known Drug Allergies (Unverified , 07/28/17) ROS Review of System As per HPI Physical Exam Physical Exam General: No acute distress HEENT: OM moist Neck Supple Lungs: Clear to auscultation, Nonlabored CV: Atrial flutter Abdomen: Soft, No tenderness Extremities: No edema Skin: No rash Neuro: Normal speech, No Angel, No CVA/SP tenderness Vital Signs Vital Signs Date Time Temp Pulse Resp B/P (MAP) Pulse Ox O2 Delivery O2 Flow Rate FiO2 07/08/18 08:00 Room Air 07/08/18 06:00 122/78 (93) 07/08/18 04:00 156 07/08/18 02:00 98.5 16 97 98.5 Assessment & Plan XUAN On CKD- Cardiorenal monitor , strict I/O E-Lytes stable, currently no emergent indication for HD Cautious with IVF Atrial flutter with RVR: New S/p cardioversion Hypernatremia- mild- encourage PO Fluid intake if Not NPO CKD3: As per labs available in our system Creat 1.6-2.0 XUAN on CKD Bilat Renal cysts-Multiple US December 2017 Hyperkalemia/Hypomagnesemia- resolved Discussed with Pt and RN Labs Labs Laboratory Tests Test 07/07/18 15:30 07/07/18 21:06 07/07/18 21:40 07/08/18 03:30 White Blood Count 7.1 x10^3/uL (4.0-11.0) 5.7 x10^3/uL (4.0-11.0) Red Blood Count 3.99 x10^6/uL (4.30-5.70) 3.50 x10^6/uL (4.30-5.70) Hemoglobin 11.9 g/dL (13.0-17.5) 10.7 g/dL (13.0-17.5) Hematocrit 37.0 % (39.0-53.0) 32.4 % (39.0-53.0) Mean Corpuscular Volume 93 fL (79-100) 93 fL (79-100) Mean Corpuscular Hemoglobin 30 pg (25-35) 31 pg (25-35) Mean Corpuscular Hemoglobin Concent 32 g/dL (31-37) 33 g/dL (31-37) Red Cell Distribution Width 13.4 % (11.5-14.5) 13.3 % (11.5-14.5) Platelet Count 284 x10^3/uL (140-400) 236 x10^3/uL (140-400) Neutrophils (%) (Auto) 71 % (31-73) Lymphocytes (%) (Auto) 20 % (24-48) Monocytes (%) (Auto) 8 % (0-9) Eosinophils (%) (Auto) 1 % (0-3) Basophils (%) (Auto) 1 % (0-3) Neutrophils # (Auto) 5.0 x10^3uL (1.8-7.7) Lymphocytes # (Auto) 1.4 x10^3/uL (1.0-4.8) Monocytes # (Auto) 0.5 x10^3/uL (0.0-1.1) Eosinophils # (Auto) 0.1 x10^3/uL (0.0-0.7) Basophils # (Auto) 0.0 x10^3/uL (0.0-0.2) Prothrombin Time 13.7 SEC (11.7-14.0) Prothromb Time International Ratio 1.1 (0.8-1.1) Sodium Level 145 mmol/L (136-145) 146 mmol/L (136-145) Potassium Level 5.6 mmol/L (3.5-5.1) 4.8 mmol/L (3.5-5.1) Chloride Level 113 mmol/L (98-107) 113 mmol/L (98-107) Carbon Dioxide Level 17 mmol/L (21-32) 17 mmol/L (21-32) Anion Gap 15 (6-14) 16 (6-14) Blood Urea Nitrogen 37 mg/dL (8-26) 35 mg/dL (8-26) Creatinine 2.2 mg/dL (0.7-1.3) 2.1 mg/dL (0.7-1.3) Estimated GFR (Cockcroft-Gault) 34.7 36.6 BUN/Creatinine Ratio 17 (6-20) Glucose Level 104 mg/dL (70-99) 93 mg/dL (70-99) Calcium Level 7.6 mg/dL (8.5-10.1) 6.8 mg/dL (8.5-10.1) Magnesium Level 1.6 mg/dL (1.8-2.4) 2.0 mg/dL (1.8-2.4) Total Bilirubin 0.3 mg/dL (0.2-1.0) Aspartate Amino Transf (AST/SGOT) 16 U/L (15-37) Alanine Aminotransferase (ALT/SGPT) 15 U/L (16-63) Alkaline Phosphatase 134 U/L (46-116) Troponin I Quantitative 1.391 ng/mL (0.000-0.055) 1.364 ng/mL (0.000-0.055) 1.215 ng/mL (0.000-0.055) RH-Fhq-R-Type Natriuretic Peptide 5399 pg/mL (0-449) Total Protein 6.9 g/dL (6.4-8.2) Albumin 3.4 g/dL (3.4-5.0) Albumin/Globulin Ratio 1.0 (1.0-1.7) Triglycerides Level 105 mg/dL (0-150) Cholesterol Level 227 mg/dL (0-200) LDL Cholesterol, Calculated 149 mg/dL (0-100) VLDL Cholesterol, Calculated 21 mg/dL (0-40) Non-HDL Cholesterol Calculated 170 mg/dL (0-129) HDL Cholesterol 57 mg/dL (40-60) Cholesterol/HDL Ratio 4.0 Thyroid Stimulating Hormone (TSH) 2.221 uIU/mL (0.358-3.74) Ethyl Alcohol Level < 10 mg/dL (0-10) Glucose (Fingerstick) 160 mg/dL (70-99) Heparin Anti-Xa Act, Unfractionated 0.43 IU/mL (0.30-0.70) 0.22 IU/mL (0.30-0.70) Laboratory Tests Test 07/07/18 15:30 07/07/18 21:06 07/07/18 21:40 07/08/18 03:30 White Blood Count 7.1 x10^3/uL (4.0-11.0) 5.7 x10^3/uL (4.0-11.0) Red Blood Count 3.99 x10^6/uL (4.30-5.70) 3.50 x10^6/uL (4.30-5.70) Hemoglobin 11.9 g/dL (13.0-17.5) 10.7 g/dL (13.0-17.5) Hematocrit 37.0 % (39.0-53.0) 32.4 % (39.0-53.0) Mean Corpuscular Volume 93 fL (79-100) 93 fL (79-100) Mean Corpuscular Hemoglobin 30 pg (25-35) 31 pg (25-35) Mean Corpuscular Hemoglobin Concent 32 g/dL (31-37) 33 g/dL (31-37) Red Cell Distribution Width 13.4 % (11.5-14.5) 13.3 % (11.5-14.5) Platelet Count 284 x10^3/uL (140-400) 236 x10^3/uL (140-400) Neutrophils (%) (Auto) 71 % (31-73) Lymphocytes (%) (Auto) 20 % (24-48) Monocytes (%) (Auto) 8 % (0-9) Eosinophils (%) (Auto) 1 % (0-3) Basophils (%) (Auto) 1 % (0-3) Neutrophils # (Auto) 5.0 x10^3uL (1.8-7.7) Lymphocytes # (Auto) 1.4 x10^3/uL (1.0-4.8) Monocytes # (Auto) 0.5 x10^3/uL (0.0-1.1) Eosinophils # (Auto) 0.1 x10^3/uL (0.0-0.7) Basophils # (Auto) 0.0 x10^3/uL (0.0-0.2) Prothrombin Time 13.7 SEC (11.7-14.0) Prothromb Time International Ratio 1.1 (0.8-1.1) Sodium Level 145 mmol/L (136-145) 146 mmol/L (136-145) Potassium Level 5.6 mmol/L (3.5-5.1) 4.8 mmol/L (3.5-5.1) Chloride Level 113 mmol/L (98-107) 113 mmol/L (98-107) Carbon Dioxide Level 17 mmol/L (21-32) 17 mmol/L (21-32) Anion Gap 15 (6-14) 16 (6-14) Blood Urea Nitrogen 37 mg/dL (8-26) 35 mg/dL (8-26) Creatinine 2.2 mg/dL (0.7-1.3) 2.1 mg/dL (0.7-1.3) Estimated GFR (Cockcroft-Gault) 34.7 36.6 BUN/Creatinine Ratio 17 (6-20) Glucose Level 104 mg/dL (70-99) 93 mg/dL (70-99) Calcium Level 7.6 mg/dL (8.5-10.1) 6.8 mg/dL (8.5-10.1) Magnesium Level 1.6 mg/dL (1.8-2.4) 2.0 mg/dL (1.8-2.4) Total Bilirubin 0.3 mg/dL (0.2-1.0) Aspartate Amino Transf (AST/SGOT) 16 U/L (15-37) Alanine Aminotransferase (ALT/SGPT) 15 U/L (16-63) Alkaline Phosphatase 134 U/L (46-116) Troponin I Quantitative 1.391 ng/mL (0.000-0.055) 1.364 ng/mL (0.000-0.055) 1.215 ng/mL (0.000-0.055) UU-Ken-U-Type Natriuretic Peptide 5399 pg/mL (0-449) Total Protein 6.9 g/dL (6.4-8.2) Albumin 3.4 g/dL (3.4-5.0) Albumin/Globulin Ratio 1.0 (1.0-1.7) Triglycerides Level 105 mg/dL (0-150) Cholesterol Level 227 mg/dL (0-200) LDL Cholesterol, Calculated 149 mg/dL (0-100) VLDL Cholesterol, Calculated 21 mg/dL (0-40) Non-HDL Cholesterol Calculated 170 mg/dL (0-129) HDL Cholesterol 57 mg/dL (40-60) Cholesterol/HDL Ratio 4.0 Thyroid Stimulating Hormone (TSH) 2.221 uIU/mL (0.358-3.74) Ethyl Alcohol Level < 10 mg/dL (0-10) Glucose (Fingerstick) 160 mg/dL (70-99) Heparin Anti-Xa Act, Unfractionated 0.43 IU/mL (0.30-0.70) 0.22 IU/mL (0.30-0.70) Review All relevant outside records, renal labs, imaging studies, telemetry/EKG's were reviewed. Images Images Renal US 12/2017 The right kidney measures 13.1 cm in length while the left kidney measures 11.4 cm. There are several bilateral renal cysts. The largest of these lies on the right and arises from the upper pole. It measures 9.3 cm. The largest cyst on the left measures 5.2 cm. No solid renal mass is delineated. There is no evidence of hydronephrosis. The partially filled urinary bladder is unremarkable. IMPRESSION: Bilateral renal cysts cXr IMPRESSION: No acute cardiopulmonary abnormality is detected. NATHEN RANKIN MD Jul 08, 2018 10:51
[2018-07-08] MEDS ORDERED: LIDOCAINE 2% 100 MG/5 ML SYRINGE. ONE (10:53)
--- NOTE | 2018-07-08 11:43 | EKG ---
[facility] [address] [place] [address] Test Date: 2018-07-08 Test Time: 11:36:24 Pat Name: SOLO YI Department: Room: 206 1 Gender: M [employer] Consultant: JOSEPH : [id number] Requested By: LENA KAUR Order Number: [id number] Reading MD: Cedrick Beltran MD Measurements Intervals [place] Rate: 61 P: IA: QRS: 42 QRSD: 86 T: 43 QT: 380 QTc: 384 Interpretive Statements ECTOPIC ATRIAL RHYTHM BRADYCARDIA NON-SPECIFIC ST/T CHANGES Electronically Signed On 07-12-2018 10:58:52 CDT by Cedrick Beltran MD
--- NOTE | 2018-07-08 11:45 | HP ---
ADMIT DATE: 07/07/2018 PATIENT LOCATION: 206. REASON FOR ADMISSION TO THE HOSPITAL: Atrial fibrillation with rapid ventricular rate, 150 heart rate. HISTORY OF PRESENT ILLNESS: The patient is an 83-year-old male. The patient's a couple of days ago and he has been stressed out lately. He came to the office, was found to have a heart rate of 150 and the patient was asymptomatic. He was admitted to the hospital, seen by Cardiology and was given IV Cardizem drip as well as IV heparin drip and Cardiology was consulted. The patient is scheduled for a transesophageal echocardiogram and possible cardioversion. PAST MEDICAL HISTORY: Hypertension, hyperlipidemia, chronic kidney disease, bilateral renal cysts and osteoarthritis. PAST SURGICAL HISTORY: Arthroscopy and right hip repair. FAMILY HISTORY: Positive for hypertension. SOCIAL HISTORY: Smokes less than half a pack, smoked for at least 30-40 years, still smokes. Denies alcohol or street drugs. The patient's within the last 3 weeks ago. MEDICATIONS: He is on amlodipine, atorvastatin and losartan. ALLERGIES: No allergies. REVIEW OF SYSTEMS: CARDIAC: No chest pain. GASTROINTESTINAL: No nausea or vomiting. NEUROLOGIC: No weakness. Rest of the 14-system reviewed and negative. PHYSICAL EXAMINATION: VITAL SIGNS: On examination, at the time of admission, shows a temperature 99, pulse 160, respirations 20, blood pressure 145/98 and 90 on room air. HEENT: Head is atraumatic. Pupils equal. Oral cavity, no congestion. NECK: Supple. Thyroid not enlarged. JVD not elevated. CHEST: Symmetrical, COPD pattern. LUNGS: Clear to auscultation, diminished breath sounds. ABDOMEN: Soft. Bowel sounds present. No mass palpable. CARDIOVASCULAR: Tachycardic. No murmurs. GENITALIA: No Angel. RECTAL: Deferred. EXTREMITIES: No calf tenderness. Pulses are 1+. NEUROLOGICAL EXAMINATION: Moving all extremities. No focal deficits noted. LABORATORY DATA: Shows a white count of 7, hemoglobin 12 and platelets 284,000. INR is 1.1. Electrolytes show sodium 145, potassium 5.6, chloride 113, bicarbonate 17, anion gap 15, BUN 37, creatinine 2.2 and glucose 104. Magnesium 1.6. LFTs slightly elevated. Troponin 1.3, elevated. TSH was normal. Lipids, cholesterol 227, LDL 150. Chest x-ray shows COPD. EKG, AFib with rapid response. Heart rate of 150. No acute ischemic changes. FINAL IMPRESSION: 1. New onset of atrial fibrillation with rapid ventricular response.Hr 150. 2. Elevation in troponin. 3. Chronic kidney disease stage 3. 4. Chronic obstructive pulmonary disease. 5. Hypertension. 6. Hyperlipidemia. PLAN: At this time, admit to the hospital, IV Cardizem, IV heparin drip and echocardiogram. Cardiology is consulted, scheduled for probably cardioversion and see how the patient's condition improves. RIDGE OROPEZA MD DR: BALAJI/tea JOB#: [id number] / [id number] RACHID
--- NOTE | 2018-07-08 12:34 | CARD ---
MR#: [id number] Date of Study: 07/08/2018 Ordering Physician: LENA KAUR, Referring Physician: RIDGE OROPEZA Tech: Sophie Ochoa RDCS APPROVED REPORT EXAM: Transesophageal echocardiogram with color flow Doppler and Synchronized Cardioversion. INDICATION Atrial Fibrillation SILVIA guided cardioversion PROCEDURE After obtaining informed consent, patient underwent transesophageal echo in the PACU. Type of Sedation : General Anesthesia Throughout the procedure, the blood pressure, pulse oximetry, cardiac rhythm, and rate were monitored . LEFT VENTRICLE The left ventricle is normal size. There is normal left ventricular wall thickness. The left ventricu lar systolic function is normal. The ejection fraction is estimated at 55%. There is normal LV segmen rima wall motion. RIGHT VENTRICLE The right ventricle is normal size. There is normal right ventricular wall thickness. The right ventr icular systolic function is normal. ATRIA The left atrium is mildly dilated. The right atrium size is normal. The interatrial septum is intact with no evidence for an atrial septal defect or patent foramen ovale as noted on 2-D or Doppler imagi ng. AORTIC VALVE The aortic valve is moderately thickened.The aortic valve is trileaflet. Doppler and Color Flow revea led no significant aortic regurgitation. There is no significant aortic valvular stenosis. MITRAL VALVE The mitral valve is thickened but opens well. There is no evidence of mitral valve prolapse. There is no mitral valve stenosis. Doppler and Color-flow revealed mild mitral regurgitation. TRICUSPID VALVE The tricuspid valve is normal in structure and function. Doppler and Color Flow revealed trace tricus pid regurgitation. There is no tricuspid valve stenosis. PULMONIC VALVE The pulmonary valve is normal in structure and function. Doppler and Color Flow revealed no pulmonic valvular regurgitation. There is no pulmonic valvular stenosis. GREAT VESSELS The aortic root is normal in size. PERICARDIAL EFFUSION There is no evidence of significant pericardial effusion. Critical Notification Critical Value: No <Conclusion> The left ventricular systolic function is normal. The ejection fraction is estimated at 55%. There is normal LV segmental wall motion. The left atrium is mildly dilated. Mild mitral regurgitation. Trace tricuspid regurgitation. There is no evidence of significant pericardial effusion. No intracardiac vegetation or thrombus. Signed by : Mehdi Pasnoori, Electronically Approved : 07/08/2018 12:33:14
--- NOTE | 2018-07-08 12:37 | PDOC4 ---
PROCEDURE Procedure PROCEDURE SILVIA guided cardioversion INDICATION Atrial flutter/fibrillation with rapid ventricular response COMPLICATIONS None PROCEDURAL DETAILS An informed consent was obtained from patient. Transesophageal echocardiogram was obtained that did not show any intracardiac thrombus or vegetation. Anesthesiology team administered intravenous propofol for general anesthesia. Patient was then given 100 J of synchronized biphasic DC current with successful conversion of patient's rhythm to normal sinus rhythm. He was hemodynamically stable without any neurological deficits at the end of procedure. He tolerated the procedure well. CONCLUSIONS Successful SILVIA guided external cardioversion of patient's rhythm from atrial fibrillation/flutter to sinus rhythm. SHALONDA SMITH MD Jul 08, 2018 12:36
[2018-07-08] MEDS ORDERED: AMIODARONE 900 MG in IV DEXTROSE 5% 500 ML IV PRN ×2 (13:30→13:45)
[2018-07-08] MEDS ORDERED: AMIODARONE 150 MG in IV DEXTROSE 5% 100ML 100 ML IV ONE (13:30)
--- NOTE | 2018-07-08 16:40 | PDOC2 ---
NEUROLOGY CONSULT Date of Admission Date of Admission DATE: 07/08/18 TIME: 16:31 Reason for Consult Reason for Consult: Confusion Referring Physician Referring Physician: Dr. Concepcion Source Source: Caregiver, Chart review, Patient History of Present Illness History of Present Illness The patient is an 83-year-old right-handed male admitted for atrial fibrillation with rapid ventricular response. He was taking a nap and woke up this afternoon confused. He tried to take his IVs out and his leads off his chest. He says that he thinks he was ready to go home. He admits that he was confused. He is very upset because his last week. He denies any prior stroke, seizure, or cognitive problems and feels fine now. Past Medical History Cardiovascular: AFIB (new diagnosis), [place] Renal/: Chronic renal insuff (also has renal cysts) Past Surgical History Past Surgical History: Total hip replacement (right) Family History Family History: CAD Social History Social History recently, no alcohol or tobacco Current Medications Current Medications Current Medications Diltiazem HCl 125 mg/Dextrose 125 ml @ 5 mls/hr CONT PRN IV SEE I/O RECORD Last administered on 07/08/18at 08:14; Start 07/07/18 at 15:45; Stop 07/08/18 at 12:41; Status DC Diltiazem HCl (Cardizem) 20 mg 1X ONCE IVP Last administered on 07/07/18at 15: 53; Start 07/07/18 at 16:15; Stop 07/07/18 at 16:16; Status DC Sodium Chloride 500 ml @ 500 mls/hr 1X ONCE IV Last administered on at 15:55; Start 07/07/18 at 15:45; Stop 07/07/18 at 16:44; Status DC Heparin Sodium (Porcine) (Heparin Sodium) 4,000 unit 1X ONCE IV Last administered on 07/07/18at 16:34; Start 07/07/18 at 16:45; Stop 07/07/18 at 16:46 ; Status DC Heparin Sodium/ Dextrose 500 ml @ 0 mls/hr CONT PRN IV SEE I/O RECORD Last administered on 07/07/18at 16:36; Start 07/07/18 at 16:30 Heparin Sodium (Porcine) (Heparin Sodium) 2,150 unit PRN Q6HRS PRN IV FOR UFH LEVEL LESS THAN 0.2; Start 07/07/18 at 16:30 Sodium Chloride 1,000 ml @ 100 mls/hr 1X ONCE IV Last administered on at 17:22; Start 07/07/18 at 17:00; Stop 07/08/18 at 02:59; Status DC Magnesium Sulfate 50 ml @ 25 mls/hr 1X ONCE IV Last administered on 07/07/18at 17:17; Start 07/07/18 at 17:00; Stop 07/07/18 at 18:59; Status DC Sodium Polystyrene Sulfonate (Kayexalate) 15 gm 1X ONCE PO Last administered on 07/07/18at 17:42; Start 07/07/18 at 17:00; Stop 07/07/18 at 17:09; Status DC Digoxin (Lanoxin) 500 mcg 1X ONCE IV Last administered on 07/07/18at 17:14; Start 07/07/18 at 17:00; Stop 07/07/18 at 17:09; Status DC Sodium Chloride 1,000 ml @ 75 mls/hr CONT PRN IV SEE I/O RECORD Last administered on 07/08/18at 05:58; Start 07/08/18 at 03:00 Aspirin (Ecotrin) 325 mg 1X ONCE PO Last administered on 07/07/18at 17:42; Start 07/07/18 at 17:00; Stop 07/07/18 at 17:11; Status DC Amlodipine Besylate (Norvasc) 5 mg DAILY PO ; Start 07/08/18 at 09:00; Stop 07/08/18 at 12:13; Status DC Aspirin (Tone Aspirin) 325 mg DAILY PO Last administered on 07/08/18at 08:15; Start 07/08/18 at 09:00; Stop 07/08/18 at 09:30; Status DC Atorvastatin Calcium (Lipitor) 20 mg DAILY PO ; Start 07/08/18 at 09:00; Stop 07/08/18 at 09:00; Status DC Oxycodone/ Acetaminophen (Percocet 10/325) 1 tab PRN DAILY PRN PO PAIN; Start 07/07/18 at 21:15 Sodium Bicarbonate (Sodium Bicarbonate) 650 mg BID PO Last administered on 07/08at 08:15; Start 07/07/18 at 21:30 Atorvastatin Calcium (Lipitor) 20 mg HS PO Last administered on 07/07/18at 21:46 ; Start 07/07/18 at 21:15 Calcium Gluconate 1000 mg/Dextrose 110 ml @ 220 mls/hr 1X ONCE IV Last administered on 07/08/18at 08:08; Start 07/08/18 at 08:30; Stop 07/08/18 at 08:59 ; Status DC Sodium Chloride (Normal Saline Flush) 10 ml QSHIFT PRN IV AFTER MEDS AND BLOOD DRAWS; Start 07/08/18 at 07:30 Lidocaine HCl (Xylocaine 2% Topical 30gm Tube) 1 mckenna 1X ONCE TP ; Start at 08:45; Stop 07/08/18 at 08:46; Status DC Lidocaine HCl (Viscous Lidocaine) 15 ml 1X ONCE SWSW ; Start 07/08/18 at 08:45 ; Stop 07/08/18 at 08:46; Status DC Benzocaine (Hurricaine One) 3 spray 1X ONCE MM ; Start 07/08/18 at 08:45; Stop 07/08/18 at 08:46; Status DC Aspirin (Ecotrin) 81 mg DAILYWBKFT PO ; Start 07/09/18 at 08:00 Ondansetron HCl (Zofran) 4 mg PRN Q6HRS PRN IV NAUSEA/VOMITING; Start 07/08/18 at 09:45; Stop 07/08/18 at 18:00 Fentanyl Citrate (Fentanyl 2ml Vial) 25 mcg PRN Q5MIN PRN IV MILD PAIN; Start 07/08/18 at 09:45; Stop 07/08/18 at 18:00 Fentanyl Citrate (Fentanyl 2ml Vial) 50 mcg PRN Q5MIN PRN IV MODERATE TO SEVERE PAIN; Start 07/08/18 at 09:45; Stop 07/08/18 at 18:00 Morphine Sulfate (Morphine Sulfate) 1 mg PRN Q10MIN PRN IV SEVERE PAIN; Start 07/08/18 at 09:45; Stop 07/08/18 at 18:00 Ringer's Solution 1,000 ml @ 30 mls/hr Q24H IV ; Start 07/08/18 at 09:45; Stop 07/08/18 at 14:48; Status DC Lidocaine HCl (Xylocaine-Mpf 1% 2ml Vial) 2 ml 1X PRN PRN ID IV START; Start 07/08/18 at 09:45; Stop 07/08/18 at 18:00 Hydromorphone HCl (Dilaudid) 0.5 mg PRN Q10MIN PRN IV SEV PAIN, Second choice; Start 07/08/18 at 09:45; Stop 07/08/18 at 18:00 Prochlorperazine Edisylate (Compazine) 5 mg PACU PRN PRN IV NAUSEA, MRX1; Start 07/08/18 at 09:45; Stop 07/08/18 at 18:00 Propofol 40 ml @ As Directed STK-MED ONCE IV ; Start 07/08/18 at 10:52; Stop at 10:53; Status DC Lidocaine HCl (Lidocaine HCl 2% Abboject) 100 mg STK-MED ONCE .ROUTE ; Start at 10:53; Stop 07/08/18 at 10:54; Status DC Diltiazem HCl (Cardizem 24hr Cd) 240 mg DAILY PO ; Start 07/09/18 at 09:00; Stop 07/09/18 at 09:00; Status DC Diltiazem HCl (Cardizem 24hr Cd) 240 mg DAILY PO Last administered on at 12:44; Start 07/08/18 at 13:15 Amiodarone HCl 150 mg/Dextrose 103 ml @ 600 mls/hr 1X ONCE IV Last administered on 07/08/18at 14:03; Start 07/08/18 at 13:30; Stop 07/08/18 at 13:40 ; Status DC Amiodarone HCl 900 mg/Dextrose 518 ml @ 33.33 mls/ hr CONT PRN IV SEE I/O RECORD Last administered on 07/08/18at 14:09; Start 07/08/18 at 13:30; Stop 07/08 at 19:29 Amiodarone HCl 900 mg/Dextrose 518 ml @ 16.67 mls/ hr CONT PRN IV SEE I/O RECORD; Start 07/08/18 at 13:45; Stop 07/09/18 at 07:44; Status UNV Active Scripts Active Reported Sodium Bicarbonate 650 Mg Tablet 1 Tab PO BID Amlodipine Besylate 5 Mg Tablet 5 Mg PO DAILY Atorvastatin Calcium 20 Mg Tablet 1 Tab PO DAILY Percocet 10-325 Mg Tablet (Oxycodone/Acetaminophen) 1 Each Tablet 1 Tab PO PRN DAILY PRN Aspirin 325 Mg Tablet 1 Tab PO DAILY Allergies Allergies: Coded Allergies: No Known Drug Allergies (Unverified , 07/28/17) ROS Review of System Patient denies fevers, chills, weight loss, dyspnea, angina, abdominal pain, change in bowels, or dysuria. 14-point review of systems is negative. Physical Exam Physical Examination General: Well-developed, well-nourished, black male, in no acute distress HEENT: Normocephalic andatraumatic. Temporal arteriespulsatile and nontender. Neck: Supple without bruit, no meningismus Musculoskeletal: Stability:see neurologic. Gait exam:see neurologic. Tone:see neurologic. Strength:see neurologic. Neurological: Mental Status:intact, orientation, memory, attention span/concentration, language, fund of knowledge normal. Cranial Nerves:Pupils equal and reactive to light, extraocular movements areintact, visual jerome are full to confrontation. Facial sensation is normal. There is no facial asymmetry. Vestibulo-ocular reflex is intact. Palate elevates and tongue protrudes in midline. All other cranial related problems are negative except as mentioned before.Reflexes:2+ and symmetric with flexor plantar responses. Motor:5/5 strength with normal tone and bulk. Coordination:Finger-nose finger and heel-to -griffin testing are normal. Rapid alternating movements and fine finger movements are intact. Gait:Normal, including tandem. Sensory:Normal pinprick, vibration , light touch, proprioception. Vitals VITALS Vital Signs Date Time Temp Pulse Resp B/P (MAP) Pulse Ox O2 Delivery O2 Flow Rate FiO2 07/08/18 14:03 101 145/80 07/08/18 12:15 98.0 20 99 Room Air 98.0 07/08/18 11:46 8 Labs Labs Laboratory Tests Test 07/07/18 15:30 07/07/18 21:06 07/07/18 21:40 07/08/18 03:30 White Blood Count 7.1 x10^3/uL (4.0-11.0) 5.7 x10^3/uL (4.0-11.0) Red Blood Count 3.99 x10^6/uL (4.30-5.70) 3.50 x10^6/uL (4.30-5.70) Hemoglobin 11.9 g/dL (13.0-17.5) 10.7 g/dL (13.0-17.5) Hematocrit 37.0 % (39.0-53.0) 32.4 % (39.0-53.0) Mean Corpuscular Volume 93 fL (79-100) 93 fL (79-100) Mean Corpuscular Hemoglobin 30 pg (25-35) 31 pg (25-35) Mean Corpuscular Hemoglobin Concent 32 g/dL (31-37) 33 g/dL (31-37) Red Cell Distribution Width 13.4 % (11.5-14.5) 13.3 % (11.5-14.5) Platelet Count 284 x10^3/uL (140-400) 236 x10^3/uL (140-400) Neutrophils (%) (Auto) 71 % (31-73) Lymphocytes (%) (Auto) 20 % (24-48) Monocytes (%) (Auto) 8 % (0-9) Eosinophils (%) (Auto) 1 % (0-3) Basophils (%) (Auto) 1 % (0-3) Neutrophils # (Auto) 5.0 x10^3uL (1.8-7.7) Lymphocytes # (Auto) 1.4 x10^3/uL (1.0-4.8) Monocytes # (Auto) 0.5 x10^3/uL (0.0-1.1) Eosinophils # (Auto) 0.1 x10^3/uL (0.0-0.7) Basophils # (Auto) 0.0 x10^3/uL (0.0-0.2) Prothrombin Time 13.7 SEC (11.7-14.0) Prothromb Time International Ratio 1.1 (0.8-1.1) Sodium Level 145 mmol/L (136-145) 146 mmol/L (136-145) Potassium Level 5.6 mmol/L (3.5-5.1) 4.8 mmol/L (3.5-5.1) Chloride Level 113 mmol/L (98-107) 113 mmol/L (98-107) Carbon Dioxide Level 17 mmol/L (21-32) 17 mmol/L (21-32) Anion Gap 15 (6-14) 16 (6-14) Blood Urea Nitrogen 37 mg/dL (8-26) 35 mg/dL (8-26) Creatinine 2.2 mg/dL (0.7-1.3) 2.1 mg/dL (0.7-1.3) Estimated GFR (Cockcroft-Gault) 34.7 36.6 BUN/Creatinine Ratio 17 (6-20) Glucose Level 104 mg/dL (70-99) 93 mg/dL (70-99) Calcium Level 7.6 mg/dL (8.5-10.1) 6.8 mg/dL (8.5-10.1) Magnesium Level 1.6 mg/dL (1.8-2.4) 2.0 mg/dL (1.8-2.4) Total Bilirubin 0.3 mg/dL (0.2-1.0) Aspartate Amino Transf (AST/SGOT) 16 U/L (15-37) Alanine Aminotransferase (ALT/SGPT) 15 U/L (16-63) Alkaline Phosphatase 134 U/L (46-116) Troponin I Quantitative 1.391 ng/mL (0.000-0.055) 1.364 ng/mL (0.000-0.055) 1.215 ng/mL (0.000-0.055) RV-Bmf-A-Type Natriuretic Peptide 5399 pg/mL (0-449) Total Protein 6.9 g/dL (6.4-8.2) Albumin 3.4 g/dL (3.4-5.0) Albumin/Globulin Ratio 1.0 (1.0-1.7) Triglycerides Level 105 mg/dL (0-150) Cholesterol Level 227 mg/dL (0-200) LDL Cholesterol, Calculated 149 mg/dL (0-100) VLDL Cholesterol, Calculated 21 mg/dL (0-40) Non-HDL Cholesterol Calculated 170 mg/dL (0-129) HDL Cholesterol 57 mg/dL (40-60) Cholesterol/HDL Ratio 4.0 Thyroid Stimulating Hormone (TSH) 2.221 uIU/mL (0.358-3.74) Ethyl Alcohol Level < 10 mg/dL (0-10) Glucose (Fingerstick) 160 mg/dL (70-99) Heparin Anti-Xa Act, Unfractionated 0.43 IU/mL (0.30-0.70) 0.22 IU/mL (0.30-0.70) Test 07/08/18 12:25 Heparin Anti-Xa Act, Unfractionated 0.27 IU/mL (0.30-0.70) Laboratory Tests Test 07/07/18 21:06 07/07/18 21:40 07/08/18 03:30 07/08/18 12:25 Glucose (Fingerstick) 160 mg/dL (70-99) Heparin Anti-Xa Act, Unfractionated 0.43 IU/mL (0.30-0.70) 0.22 IU/mL (0.30-0.70) 0.27 IU/mL (0.30-0.70) Troponin I Quantitative 1.364 ng/mL (0.000-0.055) 1.215 ng/mL (0.000-0.055) White Blood Count 5.7 x10^3/uL (4.0-11.0) Red Blood Count 3.50 x10^6/uL (4.30-5.70) Hemoglobin 10.7 g/dL (13.0-17.5) Hematocrit 32.4 % (39.0-53.0) Mean Corpuscular Volume 93 fL (79-100) Mean Corpuscular Hemoglobin 31 pg (25-35) Mean Corpuscular Hemoglobin Concent 33 g/dL (31-37) Red Cell Distribution Width 13.3 % (11.5-14.5) Platelet Count 236 x10^3/uL (140-400) Sodium Level 146 mmol/L (136-145) Potassium Level 4.8 mmol/L (3.5-5.1) Chloride Level 113 mmol/L (98-107) Carbon Dioxide Level 17 mmol/L (21-32) Anion Gap 16 (6-14) Blood Urea Nitrogen 35 mg/dL (8-26) Creatinine 2.1 mg/dL (0.7-1.3) Estimated GFR (Cockcroft-Gault) 36.6 Glucose Level 93 mg/dL (70-99) Calcium Level 6.8 mg/dL (8.5-10.1) Magnesium Level 2.0 mg/dL (1.8-2.4) Assessment/Plan Assessment/Plan Impression: I believe the patient's history that he woke up from a dream and was confused, and find no evidence of stroke, seizure, central nervous system infection, or major metabolic derangement. Certainly his recent grief reaction contributes. Atrial fibrillation, status-post cardioversion Chronic renal disease. Recommendations: I'm going to hold off on additional studies such as imaging of the brain and EEG given his rapid return to normal baseline and the explanation as above. Additional studies if symptoms recur Thank you for letting me help with the patient's care. VIDHYA TUTTLE MD Jul 08, 2018 16:40
--- NOTE | 2018-07-08 17:12 | RAD ---
CT HEAD WO CONTRAST History: Confusion Comparison: None. Technique: Noncontrast CT imaging was performed of the head. Exposure: One or more of the following individualized dose reduction techniques were utilized for this examination: 1. Automated exposure control 2. Adjustment of the mA and/or kV according to patient size 3. Use of iterative reconstruction technique. Findings: No acute extra-axial or parenchymal hemorrhage is identified. There is no significant intra-axial mass effect, midline shift, or extra-axial fluid collection. The marsh-white differentiation of the major vascular territories is preserved. Ventricular size is proportionate to sulcal spaces. There is [id number] supratentorial atrophy. 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 The mastoid air cells and the visualized paranasal sinuses are aerated. No acute calvarial abnormality is identified. There is herniation of fat into the left ethmoid air cells compatible with previous fracture of the left lamina papyracea. There is left frontal region scalp lipoma. Impression: 1. No acute intracranial abnormality is identified. There is supratentorial atrophy. 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 If there is suspicion for evolving or acute ischemia, follow-up CT or MRI may be beneficial. Electronically signed by: Atif Rdz MD (07/08/2018 5:07 PM) [id number]
[2018-07-08] MEDS: ANTI-COAG MONITOR BY PHARMACY. MC PRN ×2 (17:24→17:26)
[2018-07-08] MEDS: HEPARIN 25,000UTS/500ML PREMIX 500 ML IV PRN (18:03)
[2018-07-08] MEDS: ATORVASTATIN CALCIUM 20 MG TABLET PO SCH (21:01)
[2018-07-09 03:21] VITALS: BP 132/92
[2018-07-09 07:43] LABS: CALCIUM 7.3 mg/dL (8.5-10.1); CREATININE 2.3 mg/dL (0.7-1.3); GFR 32.9; MAGNESIUM 1.8 mg/dL (1.8-2.4); POTASSIUM 4.9 mmol/L (3.5-5.1)
--- NOTE | 2018-07-09 07:54 | PDOC ---
PROGRESS NOTES Assessment Problems Medical Problems: (1) Atrial flutter Status: Acute Confused after awakening from a dream, also was sedated earlier in the morning and is not used to that, no evidence of stroke, seizure, central nervous system infection, or major metabolic derangement. Certainly his recent grief reaction contributes. There has been no recurrence Atrial fibrillation, status-post cardioversion Chronic renal disease. Plan Hold off on additional studies Discussed with patient and his daughter. Subjective no complaints Objective Vital Signs Date Time Temp Pulse Resp B/P (MAP) Pulse Ox O2 Delivery O2 Flow Rate FiO2 07/09/18 03:21 98.2 70 19 132/92 (105) 97 Room Air 98.2 07/08/18 11:46 8 Intake and Output 07/09/18 07:00 Intake Total 2875 ml Output Total 1150 ml Balance 1725 ml Intake Oral 350 ml IV Total 2525 ml Output Urine Total 1150 ml # Voids 3 PHYSICAL EXAM Alert. Oriented to time, place and person. PERRL. EOMI. CN: no focal findings. Muscle tone: normal. Muscle strength: 5/5 DTR: 2+ Plantar reflex: Flexor Gait: not examined in bed. Sensory exam: no abnormal findings. No cerebellar signs elicited. Review of Relevant I have reviewed the following items ladonna (where applicable) has been applied. Labs Laboratory Tests Test 07/07/18 15:30 07/07/18 21:06 07/07/18 21:40 07/08/18 03:30 White Blood Count 7.1 x10^3/uL (4.0-11.0) 5.7 x10^3/uL (4.0-11.0) Red Blood Count 3.99 x10^6/uL (4.30-5.70) 3.50 x10^6/uL (4.30-5.70) Hemoglobin 11.9 g/dL (13.0-17.5) 10.7 g/dL (13.0-17.5) Hematocrit 37.0 % (39.0-53.0) 32.4 % (39.0-53.0) Mean Corpuscular Volume 93 fL (79-100) 93 fL (79-100) Mean Corpuscular Hemoglobin 30 pg (25-35) 31 pg (25-35) Mean Corpuscular Hemoglobin Concent 32 g/dL (31-37) 33 g/dL (31-37) Red Cell Distribution Width 13.4 % (11.5-14.5) 13.3 % (11.5-14.5) Platelet Count 284 x10^3/uL (140-400) 236 x10^3/uL (140-400) Neutrophils (%) (Auto) 71 % (31-73) Lymphocytes (%) (Auto) 20 % (24-48) Monocytes (%) (Auto) 8 % (0-9) Eosinophils (%) (Auto) 1 % (0-3) Basophils (%) (Auto) 1 % (0-3) Neutrophils # (Auto) 5.0 x10^3uL (1.8-7.7) Lymphocytes # (Auto) 1.4 x10^3/uL (1.0-4.8) Monocytes # (Auto) 0.5 x10^3/uL (0.0-1.1) Eosinophils # (Auto) 0.1 x10^3/uL (0.0-0.7) Basophils # (Auto) 0.0 x10^3/uL (0.0-0.2) Prothrombin Time 13.7 SEC (11.7-14.0) Prothromb Time International Ratio 1.1 (0.8-1.1) Sodium Level 145 mmol/L (136-145) 146 mmol/L (136-145) Potassium Level 5.6 mmol/L (3.5-5.1) 4.8 mmol/L (3.5-5.1) Chloride Level 113 mmol/L (98-107) 113 mmol/L (98-107) Carbon Dioxide Level 17 mmol/L (21-32) 17 mmol/L (21-32) Anion Gap 15 (6-14) 16 (6-14) Blood Urea Nitrogen 37 mg/dL (8-26) 35 mg/dL (8-26) Creatinine 2.2 mg/dL (0.7-1.3) 2.1 mg/dL (0.7-1.3) Estimated GFR (Cockcroft-Gault) 34.7 36.6 BUN/Creatinine Ratio 17 (6-20) Glucose Level 104 mg/dL (70-99) 93 mg/dL (70-99) Calcium Level 7.6 mg/dL (8.5-10.1) 6.8 mg/dL (8.5-10.1) Magnesium Level 1.6 mg/dL (1.8-2.4) 2.0 mg/dL (1.8-2.4) Total Bilirubin 0.3 mg/dL (0.2-1.0) Aspartate Amino Transf (AST/SGOT) 16 U/L (15-37) Alanine Aminotransferase (ALT/SGPT) 15 U/L (16-63) Alkaline Phosphatase 134 U/L (46-116) Troponin I Quantitative 1.391 ng/mL (0.000-0.055) 1.364 ng/mL (0.000-0.055) 1.215 ng/mL (0.000-0.055) BZ-Vdq-B-Type Natriuretic Peptide 5399 pg/mL (0-449) Total Protein 6.9 g/dL (6.4-8.2) Albumin 3.4 g/dL (3.4-5.0) Albumin/Globulin Ratio 1.0 (1.0-1.7) Triglycerides Level 105 mg/dL (0-150) Cholesterol Level 227 mg/dL (0-200) LDL Cholesterol, Calculated 149 mg/dL (0-100) VLDL Cholesterol, Calculated 21 mg/dL (0-40) Non-HDL Cholesterol Calculated 170 mg/dL (0-129) HDL Cholesterol 57 mg/dL (40-60) Cholesterol/HDL Ratio 4.0 Thyroid Stimulating Hormone (TSH) 2.221 uIU/mL (0.358-3.74) Ethyl Alcohol Level < 10 mg/dL (0-10) Glucose (Fingerstick) 160 mg/dL (70-99) Heparin Anti-Xa Act, Unfractionated 0.43 IU/mL (0.30-0.70) 0.22 IU/mL (0.30-0.70) Test 07/08/18 12:25 07/08/18 19:10 07/09/18 03:00 Heparin Anti-Xa Act, Unfractionated 0.27 IU/mL (0.30-0.70) 0.40 IU/mL (0.30-0.70) 0.62 IU/mL (0.30-0.70) Sodium Level 142 mmol/L (136-145) Potassium Level 4.9 mmol/L (3.5-5.1) Chloride Level 112 mmol/L (98-107) Carbon Dioxide Level 19 mmol/L (21-32) Anion Gap 11 (6-14) Blood Urea Nitrogen 34 mg/dL (8-26) Creatinine 2.3 mg/dL (0.7-1.3) Estimated GFR (Cockcroft-Gault) 32.9 Glucose Level 127 mg/dL (70-99) Calcium Level 7.3 mg/dL (8.5-10.1) Magnesium Level 1.8 mg/dL (1.8-2.4) Laboratory Tests Test 07/08/18 12:25 07/08/18 19:10 07/09/18 03:00 Heparin Anti-Xa Act, Unfractionated 0.27 IU/mL (0.30-0.70) 0.40 IU/mL (0.30-0.70) 0.62 IU/mL (0.30-0.70) Sodium Level 142 mmol/L (136-145) Potassium Level 4.9 mmol/L (3.5-5.1) Chloride Level 112 mmol/L (98-107) Carbon Dioxide Level 19 mmol/L (21-32) Anion Gap 11 (6-14) Blood Urea Nitrogen 34 mg/dL (8-26) Creatinine 2.3 mg/dL (0.7-1.3) Estimated GFR (Cockcroft-Gault) 32.9 Glucose Level 127 mg/dL (70-99) Calcium Level 7.3 mg/dL (8.5-10.1) Magnesium Level 1.8 mg/dL (1.8-2.4) Medications Current Medications Diltiazem HCl 125 mg/Dextrose 125 ml @ 5 mls/hr CONT PRN IV SEE I/O RECORD Last administered on 07/08/18at 08:14; Start 07/07/18 at 15:45; Stop 07/08/18 at 12:41; Status DC Diltiazem HCl (Cardizem) 20 mg 1X ONCE IVP Last administered on 07/07/18at 15: 53; Start 07/07/18 at 16:15; Stop 07/07/18 at 16:16; Status DC Sodium Chloride 500 ml @ 500 mls/hr 1X ONCE IV Last administered on at 15:55; Start 07/07/18 at 15:45; Stop 07/07/18 at 16:44; Status DC Heparin Sodium (Porcine) (Heparin Sodium) 4,000 unit 1X ONCE IV Last administered on 07/07/18at 16:34; Start 07/07/18 at 16:45; Stop 07/07/18 at 16:46 ; Status DC Heparin Sodium/ Dextrose 500 ml @ 0 mls/hr CONT PRN IV SEE I/O RECORD Last administered on 07/08/18at 18:03; Start 07/07/18 at 16:30 Heparin Sodium (Porcine) (Heparin Sodium) 2,150 unit PRN Q6HRS PRN IV FOR UFH LEVEL LESS THAN 0.2; Start 07/07/18 at 16:30 Sodium Chloride 1,000 ml @ 100 mls/hr 1X ONCE IV Last administered on 17:22; Start 07/07/18 at 17:00; Stop 07/08/18 at 02:59; Status DC Magnesium Sulfate 50 ml @ 25 mls/hr 1X ONCE IV Last administered on 07/07/18 17:17; Start 07/07/18 at 17:00; Stop 07/07/18 at 18:59; Status DC Sodium Polystyrene Sulfonate (Kayexalate) 15 gm 1X ONCE PO Last administered on 07/07/18 17:42; Start 07/07/18 at 17:00; Stop 07/07/18 at 17:09; Status DC Digoxin (Lanoxin) 500 mcg 1X ONCE IV Last administered on 07/07/18 17:14; Start 07/07/18 at 17:00; Stop 07/07/18 at 17:09; Status DC Sodium Chloride 1,000 ml @ 75 mls/hr CONT PRN IV SEE I/O RECORD Last administered on 07/08/18at 05:58; Start 07/08/18 at 03:00 Aspirin (Ecotrin) 325 mg 1X ONCE PO Last administered on 07/07/18 17:42; Start 07/07/18 at 17:00; Stop 07/07/18 at 17:11; Status DC Amlodipine Besylate (Norvasc) 5 mg DAILY PO ; Start 07/08/18 at 09:00; Stop 07/08/18 at 12:13; Status DC Aspirin (Tone Aspirin) 325 mg DAILY PO Last administered on 07/08/18at 08:15; Start 07/08/18 at 09:00; Stop 07/08/18 at 09:30; Status DC Atorvastatin Calcium (Lipitor) 20 mg DAILY PO ; Start 07/08/18 at 09:00; Stop 07/08/18 at 09:00; Status DC Oxycodone/ Acetaminophen (Percocet 10/325) 1 tab PRN DAILY PRN PO PAIN; Start 07/07/18 at 21:15 Sodium Bicarbonate (Sodium Bicarbonate) 650 mg BID PO Last administered on 07/08at 21:01; Start 07/07/18 at 21:30 Atorvastatin Calcium (Lipitor) 20 mg HS PO Last administered on 07/08/18at 21:01 ; Start 07/07/18 at 21:15 Calcium Gluconate 1000 mg/Dextrose 110 ml @ 220 mls/hr 1X ONCE IV Last administered on 07/08/18at 08:08; Start 07/08/18 at 08:30; Stop 07/08/18 at 08:59 ; Status DC Sodium Chloride (Normal Saline Flush) 10 ml QSHIFT PRN IV AFTER MEDS AND BLOOD DRAWS; Start 07/08/18 at 07:30 Lidocaine HCl (Xylocaine 2% Topical 30gm Tube) 1 mckenna 1X ONCE TP ; Start at 08:45; Stop 07/08/18 at 08:46; Status DC Lidocaine HCl (Viscous Lidocaine) 15 ml 1X ONCE SWSW ; Start 07/08/18 at 08:45 ; Stop 07/08/18 at 08:46; Status DC Benzocaine (Hurricaine One) 3 spray 1X ONCE MM ; Start 07/08/18 at 08:45; Stop 07/08/18 at 08:46; Status DC Aspirin (Ecotrin) 81 mg DAILYWBKFT PO ; Start 07/09/18 at 08:00 Ondansetron HCl (Zofran) 4 mg PRN Q6HRS PRN IV NAUSEA/VOMITING; Start 07/08/18 at 09:45; Stop 07/08/18 at 18:05; Status DC Fentanyl Citrate (Fentanyl 2ml Vial) 25 mcg PRN Q5MIN PRN IV MILD PAIN; Start 07/08/18 at 09:45; Stop 07/08/18 at 18:05; Status DC Fentanyl Citrate (Fentanyl 2ml Vial) 50 mcg PRN Q5MIN PRN IV MODERATE TO SEVERE PAIN; Start 07/08/18 at 09:45; Stop 07/08/18 at 18:05; Status DC Morphine Sulfate (Morphine Sulfate) 1 mg PRN Q10MIN PRN IV SEVERE PAIN; Start 07/08/18 at 09:45; Stop 07/08/18 at 18:05; Status DC Ringer's Solution 1,000 ml @ 30 mls/hr Q24H IV ; Start 07/08/18 at 09:45; Stop 07/08/18 at 14:48; Status DC Lidocaine HCl (Xylocaine-Mpf 1% 2ml Vial) 2 ml 1X PRN PRN ID IV START; Start 07/08/18 at 09:45; Stop 07/08/18 at 18:05; Status DC Hydromorphone HCl (Dilaudid) 0.5 mg PRN Q10MIN PRN IV SEV PAIN, Second choice; Start 07/08/18 at 09:45; Stop 07/08/18 at 18:05; Status DC Prochlorperazine Edisylate (Compazine) 5 mg PACU PRN PRN IV NAUSEA, MRX1; Start 07/08/18 at 09:45; Stop 07/08/18 at 18:05; Status DC Propofol 40 ml @ As Directed STK-MED ONCE IV ; Start 07/08/18 at 10:52; Stop at 10:53; Status DC Lidocaine HCl (Lidocaine HCl 2% Abboject) 100 mg STK-MED ONCE .ROUTE ; Start at 10:53; Stop 07/08/18 at 10:54; Status DC Diltiazem HCl (Cardizem 24hr Cd) 240 mg DAILY PO ; Start 07/09/18 at 09:00; Stop 07/09/18 at 09:00; Status DC Diltiazem HCl (Cardizem 24hr Cd) 240 mg DAILY PO Last administered on at 12:44; Start 07/08/18 at 13:15 Amiodarone HCl 150 mg/Dextrose 103 ml @ 600 mls/hr 1X ONCE IV Last administered on 07/08/18at 14:03; Start 07/08/18 at 13:30; Stop 07/08/18 at 13:40 ; Status DC Amiodarone HCl 900 mg/Dextrose 518 ml @ 33.33 mls/ hr CONT PRN IV SEE I/O RECORD Last administered on 07/08/18at 14:09; Start 07/08/18 at 13:30; Stop 07/08 at 19:29; Status DC Amiodarone HCl 900 mg/Dextrose 518 ml @ 16.67 mls/ hr CONT PRN IV SEE I/O RECORD; Start 07/08/18 at 13:45; Stop 07/09/18 at 07:44; Status UNV Info (Anti-Coagulation Monitoring By Pharmacy) 1 each PRN DAILY PRN MC SEE COMMENTS Last administered on 07/08/18at 17:26; Start 07/08/18 at 17:15 Regadenoson (Lexiscan) 0.4 mg 1X ONCE IV ; Start 07/09/18 at 08:00; Stop at 08:01 Active Scripts Active Reported Sodium Bicarbonate 650 Mg Tablet 1 Tab PO BID Amlodipine Besylate 5 Mg Tablet 5 Mg PO DAILY Atorvastatin Calcium 20 Mg Tablet 1 Tab PO DAILY Percocet 10-325 Mg Tablet (Oxycodone/Acetaminophen) 1 Each Tablet 1 Tab PO PRN DAILY PRN Aspirin 325 Mg Tablet 1 Tab PO DAILY Vitals/I & O Vital Sign - Last 24 Hours 07/08/18 07/08/18 07/08/18 07/08/18 08:00 11:00 11:31 11:45 Temp 98.5 98 98.5 98.0 Pulse 156 50 Resp 22 20 B/P (MAP) 112/74 86/58 Pulse Ox 97 100 O2 Delivery Room Air Room Air Simple Mask Mask O2 Flow Rate 8 8 07/08/18 07/08/18 07/08/18 07/08/18 11:46 12:01 12:15 12:44 Temp 98.0 98.0 98.0 98.0 98.0 98.0 Pulse 56 70 74 87 Resp 20 20 B/P (MAP) 86/58 106/68 114/76 127/78 Pulse Ox 100 99 99 O2 Delivery Simple Mask Room Air Room Air O2 Flow Rate 8 07/08/18 07/08/18 07/08/18 07/08/18 14:03 15:00 19:05 19:39 Temp 97.8 98.0 97.8 98.0 Pulse 101 86 85 Resp 20 19 B/P (MAP) 145/80 168/81 (110) 153/94 (113) Pulse Ox 97 95 O2 Delivery Room Air Room Air Room Air 07/08/18 07/09/18 23:00 03:21 Temp 97.8 98.2 97.8 98.2 Pulse 77 70 Resp 19 19 B/P (MAP) 154/89 (110) 132/92 (105) Pulse Ox 95 97 O2 Delivery Room Air Room Air Intake and Output 07/08/18 07/08/18 07/09/18 15:00 23:00 07:00 Intake Total 1050 ml 350 ml 1475 ml Output Total 750 ml 400 ml Balance 1050 ml -400 ml 1075 ml VIDHYA TUTTLE MD Jul 09, 2018 07:54
[2018-07-09] MEDS ORDERED: REGADENOSON 0.4 MG/5 ML DISP.SYRIN. IV ONE ×2 (08:00→09:00)
--- NOTE | 2018-07-09 09:33 | PDOC ---
LENA KAUR COLLEGE DEAN 07/09/18 0933: CARDIO Progress Notes Date and Time Date of Service 07/09/2018 Time of Evaluation 0920 Subjective Subjective: No Chest Pain, No shortness of breath, No Palpitations Vitals Vitals Vital Signs Date Time Temp Pulse Resp B/P (MAP) Pulse Ox O2 Delivery O2 Flow Rate FiO2 07/09/18 08:00 Room Air 07/09/18 07:00 98.0 80 18 96 98.0 07/08/18 11:46 8 Weight Weight [ ] Input and Output Intake and Output Intake and Output 07/09/18 07:00 Intake Total 2875 ml Output Total 1150 ml Balance 1725 ml Intake Oral 350 ml IV Total 2525 ml Output Urine Total 1150 ml # Voids 3 Laboratory Labs Laboratory Tests Test 07/08/18 12:25 07/08/18 19:10 07/09/18 03:00 Heparin Anti-Xa Act, Unfractionated 0.27 IU/mL (0.30-0.70) 0.40 IU/mL (0.30-0.70) 0.62 IU/mL (0.30-0.70) Sodium Level 142 mmol/L (136-145) Potassium Level 4.9 mmol/L (3.5-5.1) Chloride Level 112 mmol/L (98-107) Carbon Dioxide Level 19 mmol/L (21-32) Anion Gap 11 (6-14) Blood Urea Nitrogen 34 mg/dL (8-26) Creatinine 2.3 mg/dL (0.7-1.3) Estimated GFR (Cockcroft-Gault) 32.9 Glucose Level 127 mg/dL (70-99) Calcium Level 7.3 mg/dL (8.5-10.1) Magnesium Level 1.8 mg/dL (1.8-2.4) Physical Exam HEENT: Neck Supple W Full Motion Chest: Symmetric LUNGS: Other (diminished) Heart: irregularly irregular (AFIB) Abdomen: Soft N/T Extremities: No Edema, No Calf Tenderness Neurology: alert, oriented, follow commands Assessment Assessment 1. Atrial flutter with RVR: NEW. Persistent post CVN. EF nml with regional WM hypokinesis 2. NSTEMI: peaked trop 1.3. EKG Atrial flutter with RVR. remains CP free. likely demand mediated with arrhythmia and XUAN 3. XUAN on CKD3: notable for renal cysts. Cr 2.3. Maybe his new baseline. Nephrology following 4. Grief: spouse last Thursday 5. Suspect Undiagnosed COPD with continued tobaccoism 6. HLP Recommendations 1. Cardizem PO. Amiodarone drip started yesterday due to RVR will convert to PO today. Heparin drip, Will convert to eliquis prior to DC. 2. Further ischemic workup pending MPI result. Continue renal optimization per nephrology 3. Continue statin and ASA. 4. Reinforced smoking cessation and compliance. SHALONDA SMITH MD 07/09/18 8654: CARDIO Progress Notes Assessment Assessment Patient seen and examined. Agree with DISTRIBUTION OPERATIONS MANAGER's assessment and plan. Patient back in sinus rhythm after initiating amiodarone Lexiscan nuclear stress test showed ischemia involving the apical wall Since patient is currently without any chest pain, we will plan cardiac catheterization once renal function is optimized - could be done as an outpatient LENA KAUR APRN Jul 09, 2018 09:33 SHALONDA SMITH MD Jul 09, 2018 16:39
[2018-07-09] MEDS: SODIUM BICARBONATE 650 MG TABLET. PO SCH ×2 (09:49→21:11)
[2018-07-09] MEDS: ASPIRIN ENTERIC COATED 81 MG TABLET.DR. PO SCH (09:54)
[2018-07-09 11:00] VITALS: BP 145/85
--- NOTE | 2018-07-09 11:20 | PDOC ---
SUBJECTIVE ROS No complaints, daughter at bedside OBJECTIVE Vital Signs Vital Signs Date Time Temp Pulse Resp B/P (MAP) Pulse Ox O2 Delivery O2 Flow Rate FiO2 07/09/18 09:54 78 174/91 07/09/18 08:00 Room Air 07/09/18 07:00 98.0 18 96 98.0 07/08/18 11:46 8 I & 0 Intake and Output 07/09/18 07:00 Intake Total 2875 ml Output Total 1150 ml Balance 1725 ml Intake Oral 350 ml IV Total 2525 ml Output Urine Total 1150 ml # Voids 3 PHYSICAL EXAM Physical Exam General: No acute distress HEENT: OM moist Neck Supple Lungs: Clear to auscultation, Nonlabored CV: Atrial flutter Abdomen: Soft, No tenderness Extremities: No edema Skin: No rash Neuro: Normal speech, No Angel, No CVA/SP tenderness DIAGNOSIS/ASSESSMENT Assessment & Plan XUAN On CKD- Cardiorenal E-Lytes stable, Atrial flutter with RVR: New S/p cardioversion Cardiology Planning cath Discussed with Pt and daughter risks of ALBERT DW Card as well, will wait till thursday - monitor renal function ALBERT Prophylaxis prior to cath Hypernatremia- resolved CKD3: As per labs available in our system Creat 1.6-2.0 XUAN on CKD Bilat Renal cysts-Multiple US December 2017 Hyperkalemia/Hypomagnesemia- resolved Discussed with Pt and daughter at bedside COMMENT/RELEVANT DATA Meds Current Medications Medications (Trade) Dose Ordered Sig/Katelynn Start Time Stop Time Status Last Admin Dose Admin Amiodarone HCl (Cordarone) 200 mg DAILY 07/10/18 09:00 Amiodarone HCl 150 mg/Dextrose 103 ml @ 600 mls/hr 1X ONCE 07/08/18 13:30 07/08/18 13:40 DC 07/08/18 14:03 600 MLS/HR Amiodarone HCl 900 mg/Dextrose 518 ml @ 16.67 mls/ hr CONT PRN 07/08/18 13:45 07/09/18 07:44 UNV Amlodipine Besylate (Norvasc) 5 mg DAILY 07/08/18 09:00 07/08/18 12:13 DC Aspirin (Tone Aspirin) 325 mg DAILY 07/08/18 09:00 07/08/18 09:30 DC 07/08/18 08:15 325 MG Aspirin (Ecotrin) 81 mg DAILYWBKFT 07/09/18 08:00 07/09/18 09:54 81 MG Atorvastatin Calcium (Lipitor) 20 mg HS 07/07/18 21:15 07/08/18 21:01 20 MG Benzocaine (Hurricaine One) 3 spray 1X ONCE 07/08/18 08:45 07/08/18 08:46 DC Calcium Gluconate 1000 mg/Dextrose 110 ml @ 220 mls/hr 1X ONCE 07/08/18 08:30 07/08/18 08:59 DC 07/08/18 08:08 220 MLS/HR Digoxin (Lanoxin) 500 mcg 1X ONCE 07/07/18 17:00 07/07/18 17:09 DC 07/07/18 17:14 500 MCG Diltiazem HCl (Cardizem 24hr Cd) 240 mg DAILY 07/08/18 13:15 07/09/18 09:54 240 MG Diltiazem HCl (Cardizem) 20 mg 1X ONCE 07/07/18 16:15 07/07/18 16:16 DC 07/07/18 15:53 20 MG Diltiazem HCl 125 mg/Dextrose 125 ml @ 5 mls/hr CONT PRN 07/07/18 15:45 07/08/18 12:41 DC 07/08/18 08:14 15 MLS/HR Fentanyl Citrate (Fentanyl 2ml Vial) 50 mcg PRN Q5MIN PRN 07/08/18 09:45 07/08/18 18:05 DC Heparin Sodium (Porcine) (Heparin Sodium) 2,150 unit PRN Q6HRS PRN 07/07/18 16:30 Heparin Sodium/ Dextrose 500 ml @ 0 mls/hr CONT PRN 07/07/18 16:30 07/08/18 18:03 24.9 MLS/HR Hydromorphone HCl (Dilaudid) 0.5 mg PRN Q10MIN PRN 07/08/18 09:45 07/08/18 18:05 DC Info (Anti-Coagulation Monitoring By Pharmacy) 1 each PRN DAILY PRN 07/08/18 17:15 07/08/18 17:26 1 EACH Lidocaine HCl (Lidocaine HCl 2% Abboject) 100 mg STK-MED ONCE 07/08/18 10:53 07/08/18 10:54 DC Lidocaine HCl (Viscous Lidocaine) 15 ml 1X ONCE 07/08/18 08:45 07/08/18 08:46 DC Lidocaine HCl (Xylocaine 2% Topical 30gm Tube) 1 mckenna 1X ONCE 07/08/18 08:45 07/08/18 08:46 DC Lidocaine HCl (Xylocaine-Mpf 1% 2ml Vial) 2 ml 1X PRN PRN 07/08/18 09:45 07/08/18 18:05 DC Magnesium Sulfate 50 ml @ 25 mls/hr 1X ONCE 07/07/18 17:00 07/07/18 18:59 DC 07/07/18 17:17 25 MLS/HR Morphine Sulfate (Morphine Sulfate) 1 mg PRN Q10MIN PRN 07/08/18 09:45 07/08/18 18:05 DC Ondansetron HCl (Zofran) 4 mg PRN Q6HRS PRN 07/08/18 09:45 07/08/18 18:05 DC Oxycodone/ Acetaminophen (Percocet 10/325) 1 tab PRN DAILY PRN 07/07/18 21:15 Prochlorperazine Edisylate (Compazine) 5 mg PACU PRN PRN 07/08/18 09:45 07/08/18 18:05 DC Propofol 40 ml @ As Directed STK-MED ONCE 07/08/18 10:52 07/08/18 10:53 DC Regadenoson (Lexiscan) 0.4 mg 1X ONCE 07/09/18 08:00 07/09/18 08:01 DC Ringer's Solution 1,000 ml @ 30 mls/hr Q24H 07/08/18 09:45 07/08/18 14:48 DC Sodium Polystyrene Sulfonate (Kayexalate) 15 gm 1X ONCE 07/07/18 17:00 07/07/18 17:09 DC 07/07/18 17:42 15 GM Sodium Bicarbonate (Sodium Bicarbonate) 650 mg BID 07/07/18 21:30 07/09/18 09:49 650 MG Sodium Chloride (Normal Saline Flush) 10 ml QSHIFT PRN 07/08/18 07:30 Lab Laboratory Tests Test 07/08/18 12:25 07/08/18 19:10 07/09/18 03:00 07/09/18 10:20 Heparin Anti-Xa Act, Unfractionated 0.27 IU/mL (0.30-0.70) 0.40 IU/mL (0.30-0.70) 0.62 IU/mL (0.30-0.70) 0.73 IU/mL (0.30-0.70) Sodium Level 142 mmol/L (136-145) Potassium Level 4.9 mmol/L (3.5-5.1) Chloride Level 112 mmol/L (98-107) Carbon Dioxide Level 19 mmol/L (21-32) Anion Gap 11 (6-14) Blood Urea Nitrogen 34 mg/dL (8-26) Creatinine 2.3 mg/dL (0.7-1.3) Estimated GFR (Cockcroft-Gault) 32.9 Glucose Level 127 mg/dL (70-99) Calcium Level 7.3 mg/dL (8.5-10.1) Magnesium Level 1.8 mg/dL (1.8-2.4) Results All relevant outside records, renal labs, imaging studies, telemetry/EKG's were reviewed. NATHEN RANKIN MD Jul 09, 2018 11:20
--- NOTE | 2018-07-09 11:23 | RAD ---
MR#: [id number] Date of Study: 07/09/2018 Ordering Physician: LENA KAUR, Referring Physician: ZACH BALBUENA Tech: FARSHAD Raines APPROVED REPORT Test Type: Pharmacological Stress Nurse/Tech: Xiomara Arnold R.N. Test Indications: NSTEMI Cardiac History: Diabetes, Hypertension Medications: See Electronic Medical Record Medical History: See Electronic Medical Record Resting ECG: NSR with lots of PAC's Resting Heart Rate: 83 bpm Resting Blood Pressure: 173/93mmHg Pretest Chest Pain: No chest pain Nurse/Tech Notes S1S2, lungs sound clear. Pt has a diltiazem and heparin drip infusing in rt arm IV sites Consent: The procedure was explained to the patient in lay terms. Informed consent was witnessed. Albino eout was entered into [employer]. History and Stress Test performed by Xiomara Arnold R.N. Pharm. Details Pharmacologic stress testing was performed using 0.4mg per 5ml of regadenoson given intravenously ove r 7-10 seconds. Stress Symptoms Dyspnea POST EXERCISE Reason for Termination: Infusion complete Target HR: 115 Max HR: 144 bpm Max Blood Pressure: 171/90mmHg Blood Pressure response to exercise: Normal blood pressure response during stress. Chest Pain: No. Arrhythmia: Yes. NSR with lot of PAC's and PAT ST Change: No. INTERPRETATION Stress EKG Conclusion: Baseline EKG showed sinus rhythm with PAC's and inferolateral T wave inversion s. Non diagnostic changes at peak stress. No arrhythmias. Imaging Protocol IMAGE PROTOCOL: Rest Tc-99m/stress Tc-99m 1 day Rest: Stress: Viability: Radiopharm.Tc99m [id number] Sestamibi [id number] 34mCi Duration 17min. 13min. Img Date 07/09/2018 07/09/2018 Inj-Img [id number]. 90min. Rest Admin Site:IV - Right ForearmAdministrator:RT Natalya (R)(N) Stress Admin Site: IV - Right ForearmAdministrator: Rodolfo Bullis, PROCEDURE RN STRESS DATA End Diast. Vol.125.0mlLVEDV index BSA62.0ml End Syst. Vol.65.0mlLVESV index BSA32.0ml Myocardial Qhhc136.0gEject. Xckskasa99.0% Stress Scores Regional WT2.00Summed WT32.00 Regional WM0.00Summed WM14.00 LV Perfusion Scintigraphic images showed mixed perfusion defect involving the apical wall consistent with small pr evious myocardial infarction with small to moderate amount of ischemia. Wall Motion Mild left ventricle systolic dysfunction with ejection fraction calculated at 48%. LV Perf. Quant 17 Seg. SSS8.00 17 Seg. SRS7.00 17 Seg. SDS1.00 Stress Defect Extent (% LAD)27.50Rest Defect Extent (% LAD)21.90Rev. Defect Extent (% LAD)7.50 Stress Defect Extent (% LCX) 5.00Rest Defect Extent (% LCX)7.50Rev. Defect Extent (% LCX)0.00 Stress Defect Extent (% RCA)12.20Rest Defect Extent (% RCA)11.10Rev. Defect Extent (% RCA)4.40 Stress Defect Extent (% SHAI)20.90Rest Defect Extent (% SHAI)18.70Rev. Defect Extent (% SHAI)5.00 Conclusion 1. Regadenoson cardioisotope stress test showed mixed perfusion defect involving the apical wall cons istent with small myocardial infarction and small to moderate amount of ischemia. 2. Mild left ventricle systolic dysfunction with ejection fraction calculated at 48%. 3. Low to intermediate risk for cardiac events. Signed by : Mehdi Cox, Electronically Approved : 07/09/2018 11:21:56
[2018-07-09] MEDS ORDERED: ANTI-COAG MONITOR BY PHARMACY. MC PRN (14:45)
[2018-07-09] MEDS ORDERED: APIXABAN 2.5 MG TABLET. PO ONE (14:45)
[2018-07-09 15:00] VITALS: BP 144/78
--- NOTE | 2018-07-09 17:07 | PDOC ---
PROGRESS NOTES Subjective Subjective POD#1 cardioversion Objective Objective Vital Signs Date Time Temp Pulse Resp B/P (MAP) Pulse Ox O2 Delivery O2 Flow Rate FiO2 07/09/18 15:00 98.2 70 18 144/78 (100) 96 Room Air 98.2 18 11:46 8 Intake and Output 07/09/18 07:00 Intake Total 2875 ml Output Total 1150 ml Balance 1725 ml Intake Oral 350 ml IV Total 2525 ml Output Urine Total 1150 ml # Voids 3 Physical Exam Abdomen: Soft, No tenderness Heart: Regular rate (Atrial flutter RVR) Extremities: No cyanosis, No edema General: Alert, Oriented X3, Cooperative, No acute distress HEENT: Atraumatic, Mucous membr. moist/pink Lungs: Clear to auscultation, Normal air movement MUSCULOSKELETAL: Osteoarthritic changes both hands Neuro: Normal speech, Sensation intact Psych/Mental Status: Mental status NL, Mood NL Skin: No breakdown, No significant lesion Diagnosis Problem List Problems Medical Problems: (1) Atrial flutter Status: Acute Assessment Assessment Problems Medical Problems: (1) Atrial flutter Status: Acute FINAL IMPRESSION: 1. New onset of atrial fibrillation with rapid ventricular response. 2. Elevation in troponin. 3. Chronic kidney disease stage 3. 4. Chronic obstructive pulmonary disease. 5. Hypertension. 6. Hyperlipidemia. PLAN: POD#1 cardioversion. rate controlled afib iv heparin+cardizam+amiodarone. stress test today cr 2.2 chronic. confusion after cardioversion due to? anesthesia,resolved. At this time, admit to the hospital, IV Cardizem, IV heparin drip and echocardiogram. Cardiology is consulted, scheduled for probably cardioversion and see how the patient's condition improves. Plan Plan of Care Problems Medical Problems: (1) Atrial flutter Status: Acute Comment Review of Relevant I have reviewed the following items ladonna (where applicable) has been applied. Labs Laboratory Tests Test 07/08/18 19:10 07/09/18 03:00 07/09/18 10:20 Heparin Anti-Xa Act, Unfractionated 0.40 IU/mL (0.30-0.70) 0.62 IU/mL (0.30-0.70) 0.73 IU/mL (0.30-0.70) Sodium Level 142 mmol/L (136-145) Potassium Level 4.9 mmol/L (3.5-5.1) Chloride Level 112 mmol/L (98-107) Carbon Dioxide Level 19 mmol/L (21-32) Anion Gap 11 (6-14) Blood Urea Nitrogen 34 mg/dL (8-26) Creatinine 2.3 mg/dL (0.7-1.3) Estimated GFR (Cockcroft-Gault) 32.9 Glucose Level 127 mg/dL (70-99) Calcium Level 7.3 mg/dL (8.5-10.1) Magnesium Level 1.8 mg/dL (1.8-2.4) Medications Current Medications Amiodarone HCl (Cordarone) 200 mg DAILY PO ; Start 07/10/18 at 09:00 Apixaban (Eliquis) 2.5 mg 1X ONCE PO Last administered on 07/09/18at 15:08; Start 07/09/18 at 14:45; Stop 07/09/18 at 14:46; Status DC Apixaban (Eliquis) 2.5 mg BID PO ; Start 07/09/18 at 21:00 Aspirin (Ecotrin) 81 mg DAILYWBKFT PO Last administered on 07/09/18at 09:54; Start 07/09/18 at 08:00 Diltiazem HCl (Cardizem 24hr ) 240 mg DAILY PO ; Start 07/09/18 at 09:00; Stop 07/09/18 at 09:00; Status DC Info (Anti-Coagulation Monitoring By Pharmacy) 1 each PRN DAILY PRN MC SEE COMMENTS Last administered on 07/08/18at 17:26; Start 07/08/18 at 17:15; Stop at 14:37; Status DC Info (Anti-Coagulation Monitoring By Pharmacy) 1 each PRN DAILY PRN MC SEE COMMENTS; Start 07/09/18 at 14:45 Regadenoson (Lexiscan) 0.4 mg 1X ONCE IV ; Start 07/09/18 at 08:00; Stop at 08:01; Status DC Vitals/I & O Vital Sign - Last 24 Hours 07/08/18 07/08/18 07/08/18 07/09/18 19:05 19:39 23:00 03:21 Temp 98.0 97.8 98.2 98.0 97.8 98.2 Pulse 85 77 70 Resp 19 19 19 B/P (MAP) 153/94 (113) 154/89 (110) 132/92 (105) Pulse Ox 95 95 97 O2 Delivery Room Air Room Air Room Air Room Air 07/09/18 07/09/18 07/09/18 07/09/18 07:00 08:00 09:54 11:00 Temp 98.0 98.2 98.0 98.2 Pulse 80 78 84 Resp 18 18 B/P (MAP) 174/91 145/85 (105) Pulse Ox 96 97 O2 Delivery Room Air Room Air Room Air 07/09/18 15:00 Temp 98.2 98.2 Pulse 70 Resp 18 B/P (MAP) 144/78 (100) Pulse Ox 96 O2 Delivery Room Air Intake and Output 07/08/18 07/08/18 07/09/18 15:00 23:00 07:00 Intake Total 1050 ml 350 ml 1475 ml Output Total 750 ml 400 ml Balance 1050 ml -400 ml 1075 ml RIDGE OROPEZA MD Jul 09, 2018 17:07
[2018-07-09 19:20] VITALS: BP 167/87
[2018-07-09] MEDS: APIXABAN 2.5 MG TABLET. PO SCH (21:11)
[2018-07-09] MEDS: ATORVASTATIN CALCIUM 20 MG TABLET PO SCH (21:11)
[2018-07-09 23:43] VITALS: BP 151/69
[2018-07-10 03:20] VITALS: BP 163/87
[2018-07-10 07:00] VITALS: BP 145/112
[2018-07-10 07:48] LABS: CALCIUM 7.8 mg/dL (8.5-10.1); GFR 38.7; POTASSIUM 4.7 mmol/L (3.5-5.1)
[2018-07-10] MEDS ORDERED: AMIODARONE HCL 200 MG TABLET. PO SCH (09:00)
[2018-07-10] MEDS: SODIUM BICARBONATE 650 MG TABLET. PO SCH (09:33)
[2018-07-10] MEDS: ASPIRIN ENTERIC COATED 81 MG TABLET.DR. PO SCH (09:34)
[2018-07-10] MEDS: APIXABAN 2.5 MG TABLET. PO SCH (09:34)
[2018-07-10 11:00] VITALS: BP 130/72
--- NOTE | 2018-07-10 11:19 | PDOC ---
IM PROGRESS NOTES- Subjective Subjective No pain,dyspnea. Objective Vitals Vital Signs Date Time Temp Pulse Resp B/P (MAP) Pulse Ox O2 Delivery O2 Flow Rate FiO2 07/10/18 09:34 62 145/112 07/10/18 07:35 Room Air 8.0 07/10/18 07:00 98.0 20 94 98.0 Input & Output Intake and Output 07/10/18 07:00 Intake Total 600 ml Output Total 450 ml Balance 150 ml Intake Oral 600 ml Output Urine Total 450 ml Physical Exam Physical Exam General appearance - alert,well appearing, and in no distress and oriented to person, place, and time Mental Status - alert, oriented to person, place, and time, affect appropriate to mood Head - normal Chest - clear to auscultation, no wheezes, rales or rhonchi, symmetric air entry Heart - S1 and S2 irregular Abdomen - soft, nontender, nondistended, no masses or organomegaly Neurological - alert and oriented Musculoskeletal - no muscular tenderness noted Extremities - no pedal edema Skin - warm and dry Labs Laboratory Tests Test 07/08/18 12:25 07/08/18 19:10 07/09/18 03:00 07/09/18 10:20 Heparin Anti-Xa Act, Unfractionated 0.27 IU/mL (0.30-0.70) 0.40 IU/mL (0.30-0.70) 0.62 IU/mL (0.30-0.70) 0.73 IU/mL (0.30-0.70) Sodium Level 142 mmol/L (136-145) Potassium Level 4.9 mmol/L (3.5-5.1) Chloride Level 112 mmol/L (98-107) Carbon Dioxide Level 19 mmol/L (21-32) Anion Gap 11 (6-14) Blood Urea Nitrogen 34 mg/dL (8-26) Creatinine 2.3 mg/dL (0.7-1.3) Estimated GFR (Cockcroft-Gault) 32.9 Glucose Level 127 mg/dL (70-99) Calcium Level 7.3 mg/dL (8.5-10.1) Magnesium Level 1.8 mg/dL (1.8-2.4) Test 07/10/18 06:45 Sodium Level 146 mmol/L (136-145) Potassium Level 4.7 mmol/L (3.5-5.1) Chloride Level 113 mmol/L (98-107) Carbon Dioxide Level 22 mmol/L (21-32) Anion Gap 11 (6-14) Blood Urea Nitrogen 24 mg/dL (8-26) Creatinine 2.0 mg/dL (0.7-1.3) Estimated GFR (Cockcroft-Gault) 38.7 Glucose Level 80 mg/dL (70-99) Calcium Level 7.8 mg/dL (8.5-10.1) Phosphorus Level 3.0 mg/dL (2.6-4.7) Albumin 3.0 g/dL (3.4-5.0) Laboratory Tests Test 07/10/18 06:45 Sodium Level 146 mmol/L (136-145) Potassium Level 4.7 mmol/L (3.5-5.1) Chloride Level 113 mmol/L (98-107) Carbon Dioxide Level 22 mmol/L (21-32) Anion Gap 11 (6-14) Blood Urea Nitrogen 24 mg/dL (8-26) Creatinine 2.0 mg/dL (0.7-1.3) Estimated GFR (Cockcroft-Gault) 38.7 Glucose Level 80 mg/dL (70-99) Calcium Level 7.8 mg/dL (8.5-10.1) Phosphorus Level 3.0 mg/dL (2.6-4.7) Albumin 3.0 g/dL (3.4-5.0) Meds Current Medications Amiodarone HCl (Cordarone) 200 mg DAILY PO Last administered on 07/10/18at 09:33 ; Start 07/10/18 at 09:00 Apixaban (Eliquis) 2.5 mg 1X ONCE PO Last administered on 07/09/18 15:08; Start 07/09/18 at 14:45; Stop 07/09/18 at 14:46; Status DC Apixaban (Eliquis) 2.5 mg BID PO Last administered on 07/10/18at 09:34; Start 07/09/18 at 21:00 Info (Anti-Coagulation Monitoring By Pharmacy) 1 each PRN DAILY PRN MC SEE COMMENTS Last administered on 07/10/18at 10:50; Start 07/09/18 at 14:45 Assessment Assessment Problems Medical Problems: (1) Atrial flutter Status: Acute FINAL IMPRESSION: 1. New onset of atrial fibrillation with rapid ventricular response. 2. Elevation in troponin. 3. Chronic kidney disease stage 3. 4. Chronic obstructive pulmonary disease. 5. Hypertension. 6. Hyperlipidemia. PLAN: POD#2 cardioversion. rate controlled afib off iv heparin+cardizam+amiodarone. stress test today cr 2.2 chronic. confusion after cardioversion due to? anesthesia,resolved. stress test report pending.May go home today per cardiology. see in 5 days. Discharge Management - 35 minutes. Plan Plan For more details regarding further plans, please refer to the orders. AURELIA RICE MD Jul 10, 2018 11:19
--- NOTE | 2018-07-10 11:20 | DISCH ---
DISCHARGE INSTRUCTIONS Condition on Discharge Condition on Discharge: Stable Activity After Discharge Activity Instructions for Disc: Resume previous activity, Activity as tolerated Diet after Discharge Diet after Discharge: Cardiac Contacting the DRRegan after DC Call your doctor for: Concerns you may have Follow-Up Follow up with: in 5 days Follow Up With: Commercial Loan Underwriter AURELIA RICE MD Jul 10, 2018 11:20
[2018-07-10] MEDS ORDERED: APIX2.5T PO (11:22)
[2018-07-10] MEDS ORDERED: DILT240C77 PO (11:22)
[2018-07-10] MEDS ORDERED: AMIO200T4 PO (11:22)
--- NOTE | 2018-07-10 13:21 | PDOC ---
PROGRESS NOTES Subjective Subjective Patient feeling much better. Denied any chest pain or palpitations. Objective Objective Vital Signs Date Time Temp Pulse Resp B/P (MAP) Pulse Ox O2 Delivery O2 Flow Rate FiO2 07/10/18 11:00 98.1 64 18 130/72 (91) 95 Room Air 98.1 07/10/18 07:35 8.0 Intake and Output 07/10/18 07:00 Intake Total 600 ml Output Total 450 ml Balance 150 ml Intake Oral 600 ml Output Urine Total 450 ml Physical Exam Abdomen: Soft, No tenderness Heart: Regular rate (Atrial flutter RVR) Extremities: No cyanosis, No edema General: Alert, Oriented X3, Cooperative, No acute distress HEENT: Atraumatic, Mucous membr. moist/pink Lungs: Clear to auscultation, Normal air movement Neuro: Normal speech, Sensation intact Psych/Mental Status: Mental status NL, Mood NL Skin: No breakdown, No significant lesion Assessment Assessment 1. Atrial flutter with RVR: s/p SILVIA guided cardioversion with subsequent recurrence, converted and maintained sinus rhythm with amiodarone. LV systolic function normal. Continue eliquis for stroke prophylaxis. 2. NSTEMI: Mostly demand ischemia but Lexiscan nuclear stress test showed apical wall ischemia. He is presently chest pain-free. We will consider cardiac catheterization as an outpatient once renal function is optimized. 3. XUAN on CKD3: Nephrology following 4. HLP: Statins Okay for discharge from cardiac standpoint. Follow-up in 1 month. Plan Plan of Care Problems Medical Problems: (1) Atrial flutter Status: Acute Comment Review of Relevant I have reviewed the following items ladonna (where applicable) has been applied. Labs Laboratory Tests Test 07/10/18 06:45 Sodium Level 146 mmol/L (136-145) Potassium Level 4.7 mmol/L (3.5-5.1) Chloride Level 113 mmol/L (98-107) Carbon Dioxide Level 22 mmol/L (21-32) Anion Gap 11 (6-14) Blood Urea Nitrogen 24 mg/dL (8-26) Creatinine 2.0 mg/dL (0.7-1.3) Estimated GFR (Cockcroft-Gault) 38.7 Glucose Level 80 mg/dL (70-99) Calcium Level 7.8 mg/dL (8.5-10.1) Phosphorus Level 3.0 mg/dL (2.6-4.7) Albumin 3.0 g/dL (3.4-5.0) Medications Current Medications Amiodarone HCl (Cordarone) 200 mg DAILY PO Last administered on 07/10/18at 09:33 ; Start 07/10/18 at 09:00 Apixaban (Eliquis) 2.5 mg 1X ONCE PO Last administered on 07/09/18at 15:08; Start 07/09/18 at 14:45; Stop 07/09/18 at 14:46; Status DC Apixaban (Eliquis) 2.5 mg BID PO Last administered on 07/10/18 09:34; Start 07/09/18 at 21:00 Info (Anti-Coagulation Monitoring By Pharmacy) 1 each PRN DAILY PRN MC SEE COMMENTS Last administered on 07/10/18at 10:50; Start 07/09/18 at 14:45 Vitals/I & O Vital Sign - Last 24 Hours 07/09/18 07/09/18 07/09/18 07/09/18 15:00 19:20 20:00 21:12 Temp 98.2 98.2 98.2 98.2 Pulse 70 72 Resp 18 22 B/P (MAP) 144/78 (100) 167/87 (113) Pulse Ox 96 97 O2 Delivery Room Air Room Air Room Air Room Air 07/09/18 07/09/18 07/10/18 07/10/18 22:12 23:43 03:20 07:00 Temp 98.0 97.7 98.0 98.0 97.7 98.0 Pulse 74 75 62 Resp 22 20 20 B/P (MAP) 151/69 (96) 163/87 (112) 145/112 (123) Pulse Ox 96 95 94 O2 Delivery Room Air Room Air Room Air Room Air 07/10/18 07/10/18 07/10/18 07/10/18 07:35 09:33 09:34 11:00 Temp 98.1 98.1 Pulse 62 62 64 Resp 18 B/P (MAP) 145/112 145/112 130/72 (91) Pulse Ox 95 O2 Delivery Room Air Room Air O2 Flow Rate 8.0 Intake and Output 07/09/18 07/09/18 07/10/18 15:00 23:00 07:00 Intake Total 180 ml 300 ml 120 ml Output Total 250 ml 200 ml Balance -70 ml 300 ml -80 ml SHALONDA SMITH MD Jul 10, 2018 13:21
--- NOTE | 2018-07-10 16:03 | PDOC ---
SUBJECTIVE ROS Stable OBJECTIVE Vital Signs Vital Signs Date Time Temp Pulse Resp B/P (MAP) Pulse Ox O2 Delivery O2 Flow Rate FiO2 07/10/18 11:00 98.1 64 18 130/72 (91) 95 Room Air 98.1 07/10/18 07:35 8.0 I & 0 Intake and Output 07/10/18 07:00 Intake Total 600 ml Output Total 450 ml Balance 150 ml Intake Oral 600 ml Output Urine Total 450 ml PHYSICAL EXAM Physical Exam General: No acute distress HEENT: OM moist Neck Supple Lungs: Clear to auscultation, Nonlabored CV: Atrial flutter Abdomen: Soft, No tenderness Extremities: No edema Skin: No rash Neuro: Normal speech, No Angel, No CVA/SP tenderness DIAGNOSIS/ASSESSMENT Assessment & Plan XUAN On CKD- Cardiorenal E-Lytes stable, Atrial flutter with RVR: New S/p cardioversion If LHC planned as per card recommend IVF for ALBERT prophylaxis Hypernatremia- resolved CKD3: As per labs available in our system Creat 1.6-2.0 XUAN on CKD Bilat Renal cysts-Multiple US December 2017 Hyperkalemia/Hypomagnesemia- resolved COMMENT/RELEVANT DATA Meds Current Medications Medications (Trade) Dose Ordered Sig/Katelynn Start Time Stop Time Status Last Admin Dose Admin Amiodarone HCl (Cordarone) 200 mg DAILY 07/10/18 09:00 07/10/18 09:33 200 MG Amiodarone HCl 150 mg/Dextrose 103 ml @ 600 mls/hr 1X ONCE 07/08/18 13:30 07/08/18 13:40 DC 07/08/18 14:03 600 MLS/HR Amiodarone HCl 900 mg/Dextrose 518 ml @ 16.67 mls/ hr CONT PRN 07/08/18 13:45 07/09/18 07:44 UNV Amlodipine Besylate (Norvasc) 5 mg DAILY 07/08/18 09:00 07/08/18 12:13 DC Apixaban (Eliquis) 2.5 mg 1X ONCE 07/09/18 14:45 07/09/18 14:46 DC 07/09/18 15:08 2.5 MG Aspirin (Tone Aspirin) 325 mg DAILY 07/08/18 09:00 07/08/18 09:30 DC 07/08/18 08:15 325 MG Aspirin (Ecotrin) 81 mg DAILYWBKFT 07/09/18 08:00 07/10/18 09:34 81 MG Atorvastatin Calcium (Lipitor) 20 mg HS 07/07/18 21:15 07/09/18 21:11 20 MG Benzocaine (Hurricaine One) 3 spray 1X ONCE 07/08/18 08:45 07/08/18 08:46 DC Calcium Gluconate 1000 mg/Dextrose 110 ml @ 220 mls/hr 1X ONCE 07/08/18 08:30 07/08/18 08:59 DC 07/08/18 08:08 220 MLS/HR Digoxin (Lanoxin) 500 mcg 1X ONCE 07/07/18 17:00 07/07/18 17:09 DC 07/07/18 17:14 500 MCG Diltiazem HCl (Cardizem 24hr Cd) 240 mg DAILY 07/08/18 13:15 07/10/18 09:34 240 MG Diltiazem HCl (Cardizem) 20 mg 1X ONCE 07/07/18 16:15 07/07/18 16:16 DC 07/07/18 15:53 20 MG Diltiazem HCl 125 mg/Dextrose 125 ml @ 5 mls/hr CONT PRN 07/07/18 15:45 07/08/18 12:41 DC 07/08/18 08:14 15 MLS/HR Fentanyl Citrate (Fentanyl 2ml Vial) 50 mcg PRN Q5MIN PRN 07/08/18 09:45 07/08/18 18:05 DC Heparin Sodium (Porcine) (Heparin Sodium) 2,150 unit PRN Q6HRS PRN 07/07/18 16:30 07/09/18 14:37 DC Heparin Sodium/ Dextrose 500 ml @ 0 mls/hr CONT PRN 07/07/18 16:30 07/09/18 14:37 DC 07/08/18 18:03 24.9 MLS/HR Hydromorphone HCl (Dilaudid) 0.5 mg PRN Q10MIN PRN 07/08/18 09:45 07/08/18 18:05 DC Info (Anti-Coagulation Monitoring By Pharmacy) 1 each PRN DAILY PRN 07/09/18 14:45 07/10/18 10:50 1 EACH Lidocaine HCl (Lidocaine HCl 2% Abboject) 100 mg STK-MED ONCE 07/08/18 10:53 07/08/18 10:54 DC Lidocaine HCl (Viscous Lidocaine) 15 ml 1X ONCE 07/08/18 08:45 07/08/18 08:46 DC Lidocaine HCl (Xylocaine 2% Topical 30gm Tube) 1 mckenna 1X ONCE 07/08/18 08:45 07/08/18 08:46 DC Lidocaine HCl (Xylocaine-Mpf 1% 2ml Vial) 2 ml 1X PRN PRN 07/08/18 09:45 07/08/18 18:05 DC Magnesium Sulfate 50 ml @ 25 mls/hr 1X ONCE 07/07/18 17:00 07/07/18 18:59 DC 07/07/18 17:17 25 MLS/HR Morphine Sulfate (Morphine Sulfate) 1 mg PRN Q10MIN PRN 07/08/18 09:45 07/08/18 18:05 DC Ondansetron HCl (Zofran) 4 mg PRN Q6HRS PRN 07/08/18 09:45 07/08/18 18:05 DC Oxycodone/ Acetaminophen (Percocet 10/325) 1 tab PRN DAILY PRN 07/07/18 21:15 07/09/18 21:12 1 TAB Prochlorperazine Edisylate (Compazine) 5 mg PACU PRN PRN 07/08/18 09:45 07/08/18 18:05 DC Propofol 40 ml @ As Directed STK-MED ONCE 07/08/18 10:52 07/08/18 10:53 DC Regadenoson (Lexiscan) 0.4 mg 1X ONCE 07/09/18 08:00 07/09/18 08:01 DC Ringer's Solution 1,000 ml @ 30 mls/hr Q24H 07/08/18 09:45 07/08/18 14:48 DC Sodium Polystyrene Sulfonate (Kayexalate) 15 gm 1X ONCE 07/07/18 17:00 07/07/18 17:09 DC 07/07/18 17:42 15 GM Sodium Bicarbonate (Sodium Bicarbonate) 650 mg BID 07/07/18 21:30 07/10/18 09:33 650 MG Sodium Chloride (Normal Saline Flush) 10 ml QSHIFT PRN 07/08/18 07:30 Lab Laboratory Tests Test 07/10/18 06:45 Sodium Level 146 mmol/L (136-145) Potassium Level 4.7 mmol/L (3.5-5.1) Chloride Level 113 mmol/L (98-107) Carbon Dioxide Level 22 mmol/L (21-32) Anion Gap 11 (6-14) Blood Urea Nitrogen 24 mg/dL (8-26) Creatinine 2.0 mg/dL (0.7-1.3) Estimated GFR (Cockcroft-Gault) 38.7 Glucose Level 80 mg/dL (70-99) Calcium Level 7.8 mg/dL (8.5-10.1) Phosphorus Level 3.0 mg/dL (2.6-4.7) Albumin 3.0 g/dL (3.4-5.0) Results All relevant outside records, renal labs, imaging studies, telemetry/EKG's were reviewed. NATHEN RANKIN MD Jul 10, 2018 16:03
== END 2018-07-10 14:20 | disposition home or self-care (01) | DRG 281 ==
LOC: ER 15:14 → 2 NORTH 15:40
PROVIDERS: ADMIT Internal Medicine; ATTEND Internal Medicine
PROC: B24BZZ4 Ultrasonography of Heart with Aorta, Transesophageal (ICD-10-PCS; principal; 2018-07-08 11:00)
PROC: 5A2204Z Restoration of Cardiac Rhythm, Single (ICD-10-PCS; 2018-07-08 11:00)
DX: I21.4 Non-ST elevation (NSTEMI) myocardial infarction (principal); N17.9 Acute kidney failure, unspecified; E87.0 Hyperosmolality and hypernatremia; I48.92 Unspecified atrial flutter; Z82.49 Family history of ischemic heart disease and other diseases of the circulatory system; I48.91 Unspecified atrial fibrillation; E11.22 Type 2 diabetes mellitus with diabetic chronic kidney disease; E78.5 Hyperlipidemia, unspecified; E83.42 Hypomagnesemia; E87.5 Hyperkalemia; F17.210 Nicotine dependence, cigarettes, uncomplicated; I12.9 Hypertensive chronic kidney disease with stage 1 through stage 4 chronic kidney disease, or unspecified chronic kidney disease; J44.9 Chronic obstructive pulmonary disease, unspecified; N18.3 Chronic kidney disease, stage 3 (moderate); N28.1 Cyst of kidney, acquired; Z96.641 Presence of right artificial hip joint; M19.90 Unspecified osteoarthritis, unspecified site; Z91.81 History of falling; Z79.82 Long term (current) use of aspirin; Z79.899 Other long term (current) drug therapy; Z79.84 Long term (current) use of oral hypoglycemic drugs
CPT/HCPCS: 36415; 70450; 71045; 78452; 80048; 80053; 80061; 80069; 82962; 83735; 83880; 84443; 84484; 85025; 85027; 85520; 85610; 92960; 93005; 93017; 93306; 93312; 93320; 93325; 96361; 96365; 96374; 96375; 96376; 99291; A9500; G0480; J0282; J0610; J1160; J1644; J2704; J2785; J3475; J3490; J7030; J7040

== ENCOUNTER 2018-09-03 06:30 | Outpatient (CLI) | payer MEDICARE ==
[2018-09-03] VITALS (12 sets, daily range): BP systolic 110–162; BP diastolic 53–93
[~2018-09-03] VITALS: Ht 177.8 cm; Wt 79.4 kg
[~2018-09-03 06:30] MED LIST changes: +AMIO200T4 PO; +APIX2.5T PO; +DILT240C82 PO; -OXYC-328 PO; +OXYC1TAB22 PO; +SODI650T PO
[2018-09-03 07:09] LABS: HEMOGLOBIN 11.6 g/dL (13.0-17.5); RED BLOOD COUNT 3.94 x10^6/uL (4.30-5.70); RED CELL DISTRIBUTION WIDTH 13.6 % (11.5-14.5)
[2018-09-03] MEDS ORDERED: IODIXANOL 320 MG/ML 100 ML VIAL. ONE ×2 (07:12→08:28)
[2018-09-03] MEDS ORDERED: LIDOCAINE 1% PF 2 ML VIAL. ONE (07:12)
[2018-09-03 07:23] LABS: PROTHROMBIN TIME PATIENT 13.7 SEC (11.7-14.0)
[2018-09-03 07:47] LABS: CALCIUM 6.9 mg/dL (8.5-10.1); CREATININE 2.4 mg/dL (0.7-1.3); GFR 31.4; POTASSIUM 5.7 mmol/L (3.5-5.1)
[2018-09-03] MEDS ORDERED: fentaNYL PF VIAL 100 MCG/2 ML VIAL ONE (07:50)
[2018-09-03] MEDS ORDERED: MIDAZOLAM HCL/PF 2 MG/2 ML VIAL. ONE (07:50)
[2018-09-03] MEDS ORDERED: HEPARIN for IV BOLUS 10,000 UNIT/10 ML VIAL. ONE (07:51)
[2018-09-03] MEDS ORDERED: VERAPAMIL 5 MG/2 ML VIAL. ONE (07:51)
[2018-09-03] MEDS ORDERED: NITROGLYCERIN 200 MCG/2 ML SYRINGE FOR CATH/VASC LAB. ONE (07:51)
[2018-09-03] MEDS ORDERED: fentaNYL PF VIAL 100 MCG/2 ML VIAL IV ONE (08:15)
[2018-09-03] MEDS ORDERED: IODIXANOL 320 MG/ML 100 ML VIAL. IART ONE (08:15)
[2018-09-03] MEDS ORDERED: HEPARIN for IV BOLUS 10,000 UNIT/10 ML VIAL. IART ONE (08:15)
[2018-09-03] MEDS ORDERED: NITROGLYCERIN 200 MCG/2 ML SYRINGE FOR CATH/VASC LAB. IART ONE (08:15)
[2018-09-03] MEDS ORDERED: VERAPAMIL 5 MG/2 ML VIAL. IART ONE (08:15)
[2018-09-03] MEDS ORDERED: LIDOCAINE 1% PF 2 ML VIAL. INJ ONE (08:15)
[2018-09-03] MEDS ORDERED: MIDAZOLAM HCL/PF 2 MG/2 ML VIAL. IV ONE (08:15)
[2018-09-03] MEDS ORDERED: CONTRAST GIVEN. MC PRN (08:30)
[2018-09-03] MEDS ORDERED: HEPARIN for IV BOLUS 10,000 UNIT/10 ML VIAL. IV ONE (08:45)
[2018-09-03] MEDS ORDERED: IV 1/2 NORMAL SALINE 1,000 ML IV SCH (09:12)
--- NOTE | 2018-09-03 09:12 | PDOC ---
MODERATE SEDATION ASSESSMENT RISKS/ALTERNATIVES Risks/Alternatives Risks and alternatives of this type of sedation and procedure discussed with: RISK/ALTERNATIVES: Patient H & P ON CHART H & P H & P on chart and reviewed for co-morbid conditions and appropriate labs. H&P ON CHART: Yes STATUS PREG STATUS ASSESSED: N/A MEDS/ALLERGIES REVIEWED Meds/Allergies Reviewed Medications and Allergies including time and route of recently administered narcotics and sedatives. MEDS/ALLERGIES REVIEWED: Yes ASA RATING ASA RATING: II AIRWAY ASSESSMENT Airway Assessment Airway patency, oral function limitations, presence of caps, crowns, dentures, partials, and ability to extend neck assessed. AIRWAY ASSESSMENT: Yes MALLAMPATI SCORE MALLAMPATI SCORE: II PRE-SEDATION ASSESSMENT PRE-SEDATION ASSESSMENT: Yes SHALONDA SMITH MD Sep 03, 2018 09:12
[2018-09-03] MEDS ORDERED: NITROGLYCERIN SUBLINGUAL 0.4 MG BOTTLE OF 25. SL PRN (09:15)
--- NOTE | 2018-09-03 09:35 | CARD ---
MR#: [id number] Date of Study: 09/03/2018 Ordering Physician: SHALONDA COX, Referring Physician: SHALONDA COX Tech: RT Wilder (R) APPROVED REPORT Technologist: RT Wilder (R) Nurse: Smitha Quesada RN Procedure(s) performed: 1. Left heart catheterization, selective coronary angiography via right hickey sradial approach 2. Instant wave free ratio (IFR) measurement of right coronary artery. Moderate sedation: 34 min INDICATION The indication(s) include : Atrial flutter, non-STEMI, positive stress test. PROCEDURE NARRATIVE After explaining the risks, benefits and alternative options, informed consent was obtained from alka ent. Patient was brought to the cardiac Assistant Basketball Coach and right wrist was prepped and draped in the usual fashion after confirming a positive modified Macario's test. Arterial access was obtained in the rig t radial artery and a 6 Sammarinese sheath was inserted. 6 [place] Baltazar and 6 [place] JR4 catheters were used to perform selective angiography of the left and right coronary arteries. Since patient was foun d to have angiographically borderline significant stenosis involving the right coronary artery, a dec ision was made to assess the physiologic significance using Instant wave free ratio (IFR) measurement . The stenosis in the ostial segment was crossed with [place] PressureWire and IFR measureme nt was made that came back in significant at 0.96. Hence this was not intervened upon. Left ventricul ography was not performed due to elevated creatinine level and availability of recent 2-D echocardiog parvin. Patient tolerated the procedure well. Hemostasis was achieved using TR band. There were no imm ediate complications. The following findings were noted. FINDINGS a. The left main coronary artery arose from the left sinus of Valsalva, gave rise to the left anteri or descending and left circumflex arteries and did not show any significant stenosis. b. The left anterior descending artery showed chronic total occlusion involving the distal segment w ith faint reconstitution of the apical segment via right to left collaterals. c. The left circumflex artery showed widely patent previously placed stents in the midsegment and al so the proximal segment of the obtuse marginal branch. d. The right coronary artery was a dominant vessel arising from the right sinus of Valsalva that pranay wed 50% stenosis involving the ostial segment that was physiologically insignificant based on IFR maite surement of 0.96. Also seen was 30% stenosis in the proximal to midsegment. The posterior descending branch showed severe diffuse disease. The posterolateral branch showed chronic total occlusion in the proximal segment with distal reconstitution from left to right collaterals. Conclusion 1. Patent previously placed stents in the left circumflex artery and also the obtuse marginal branch . 2. 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 3. 50% stenosis involving the ostial segment of the right coronary artery that was physiologically i nsignificant based on IFR measurement of 0.96. Recommendations Medical Therapy Signed by : Shalonda Cox, Electronically Approved : 09/03/2018 09:34:13
== END 2018-09-03 13:45 | disposition home or self-care (01) ==
LOC: CCL 06:30
PROVIDERS: ATTEND Internal Medicine Cardiovascular Disease
DX: I25.10 Atherosclerotic heart disease of native coronary artery without angina pectoris (principal); I25.82 Chronic total occlusion of coronary artery; I12.9 Hypertensive chronic kidney disease with stage 1 through stage 4 chronic kidney disease, or unspecified chronic kidney disease; N18.9 Chronic kidney disease, unspecified; I48.92 Unspecified atrial flutter; I25.2 Old myocardial infarction; I48.91 Unspecified atrial fibrillation; E78.5 Hyperlipidemia, unspecified; Z79.82 Long term (current) use of aspirin; Z79.899 Other long term (current) drug therapy
CPT/HCPCS: 36415; 80048; 85027; 85610; 93458; 93571; 99152; 99153; C1769; C1892; J1644; J2250; J3010; J3490; Q9967

== ENCOUNTER 2018-12-10 15:48 | Emergency (ER) | payer MEDICARE ==
[~2018-12-10] VITALS: Ht 167.6 cm; Wt 79.4 kg
[~2018-12-10 15:48] MED LIST changes: +AMLO5TAB10 PO; -AMLO5TAB7 PO
[2018-12-10 17:02] LABS: BASO % 0 % (0-3); EOS # 0.1 x10^3/uL (0.0-0.7); EOS % 2 % (0-3); HEMOGLOBIN 11.7 g/dL (13.0-17.5); LYMPH % 14 % (24-48); MEAN CORPUSCULAR HEMOGLOBIN 30 pg (25-35); MEAN CORPUSCULAR HGB CONC 32 g/dL (31-37); MEAN CORPUSCULAR VOLUME 93 fL (79-100); MONO # 0.6 x10^3/uL (0.0-1.1); MONO % 8 % (0-9); NEUT # 5.2 x10^3uL (1.8-7.7); NEUT % 75 % (31-73); PLATELET COUNT 244 x10^3/uL (140-400); RED BLOOD COUNT 3.96 x10^6/uL (4.30-5.70); RED CELL DISTRIBUTION WIDTH 14.1 % (11.5-14.5)
[2018-12-10 17:03] LABS: CREATININE 2.8 mg/dL (0.7-1.3); GFR 26.3; POTASSIUM 5.7 mmol/L (3.5-5.1)
[2018-12-10 17:08] LABS: ALBUMIN 3.3 g/dL (3.4-5.0); ALBUMIN/GLOBULIN RATIO 0.8 (1.0-1.7); TOTAL BILIRUBIN 0.3 mg/dL (0.2-1.0); TOTAL PROTEIN 7.5 g/dL (6.4-8.2)
--- NOTE | 2018-12-10 17:13 | PHYS DOC ---
Past Medical History Past Medical History: A-Fib, Diabetes-Type II, Hypertension, Renal Disease Past Surgical History: No Surgical History, Other Additional Past Surgical Histo: PLATE R HIP S/P FALL, stents Alcohol Use: None Drug Use: None Adult General Chief Complaint Chief Complaint: ABNORMAL LABS HPI HPI Patient is a 83 year old is male with a history of hypertension, diabetes type 2, renal failure, who presents to the ED today to be evaluated for hypocalcemia. Patient is in the ED with the daughter who states patient had labs done a couple days ago and they called by the doctor's office and informed his calcium was low. Patient denies any other symptoms. PCP Dr. Concepcion Review of Systems Review of Systems Constitutional: Denies fever or chills [] Eyes: Denies change in visual acuity, redness, or eye pain [] HENT: Denies nasal congestion or sore throat [] Respiratory: Denies cough or shortness of breath [] Cardiovascular: No additional information not addressed in HPI [] GI: Denies abdominal pain, nausea, vomiting, bloody stools or diarrhea [] : Denies dysuria or hematuria [] Musculoskeletal: Denies back pain or joint pain [] Integument: Denies rash or skin lesions [] Neurologic: Denies headache, focal weakness or sensory changes [] Endocrine: low calcium All other systems were reviewed and found to be within normal limits, except as documented in this note. Current Medications Current Medications Current Medications Medications (Trade) Dose Ordered Sig/Katelynn Start Time Stop Time Status Last Admin Dose Admin Sodium Polystyrene Sulfonate (Kayexalate) 30 gm 1X ONCE 12/10/18 17:30 12/10/18 17:31 DC 12/10/18 17:45 30 GM Allergies Allergies Allergies Coded Allergies Type Severity Reaction Last Updated Verified No Known Drug Allergies 09/03/18 No Physical Exam Physical Exam Constitutional: Well developed, well nourished, no acute distress, non-toxic appearance. [] HENT: Normocephalic, atraumatic, bilateral external ears normal, oropharynx moist, no oral exudates, nose normal. [] Eyes: PERRLA, EOMI, conjunctiva normal, no discharge. [] Neck: Normal range of motion, no tenderness, supple, no stridor. [] Cardiovascular:Heart rate regular rhythm, no murmur [] Lungs & Thorax: Bilateral breath sounds clear to auscultation [] Abdomen: Bowel sounds normal, soft, no tenderness, no masses, no pulsatile masses. [] Skin: Warm, dry, no erythema, no rash. [] Back: No tenderness, no CVA tenderness. [] Extremities: No tenderness, no cyanosis, no clubbing, ROM intact, no edema. [] Neurologic: Alert and oriented X 3, normal motor function, normal sensory function, no focal deficits noted. [] Psychologic: Affect normal, judgement normal, mood normal. [] Current Patient Data Vital Signs Vital Signs Date Time Temp Pulse Resp B/P (MAP) Pulse Ox O2 Delivery O2 Flow Rate FiO2 12/10/18 17:02 75 19 151/76 (101) 97 Room Air 12/10/18 16:30 97.9 97.9 Lab Values Laboratory Tests Test 12/10/18 16:45 White Blood Count 7.0 x10^3/uL (4.0-11.0) Red Blood Count 3.96 x10^6/uL (4.30-5.70) L Hemoglobin 11.7 g/dL (13.0-17.5) L Hematocrit 37.0 % (39.0-53.0) L Mean Corpuscular Volume 93 fL (79-100) Mean Corpuscular Hemoglobin 30 pg (25-35) Mean Corpuscular Hemoglobin Concent 32 g/dL (31-37) Red Cell Distribution Width 14.1 % (11.5-14.5) Platelet Count 244 x10^3/uL (140-400) Neutrophils (%) (Auto) 75 % (31-73) H Lymphocytes (%) (Auto) 14 % (24-48) L Monocytes (%) (Auto) 8 % (0-9) Eosinophils (%) (Auto) 2 % (0-3) Basophils (%) (Auto) 0 % (0-3) Neutrophils # (Auto) 5.2 x10^3uL (1.8-7.7) Lymphocytes # (Auto) 1.0 x10^3/uL (1.0-4.8) Monocytes # (Auto) 0.6 x10^3/uL (0.0-1.1) Eosinophils # (Auto) 0.1 x10^3/uL (0.0-0.7) Basophils # (Auto) 0.0 x10^3/uL (0.0-0.2) Sodium Level 146 mmol/L (136-145) H Potassium Level 5.7 mmol/L (3.5-5.1) H Chloride Level 110 mmol/L (98-107) H Carbon Dioxide Level 23 mmol/L (21-32) Anion Gap 13 (6-14) Blood Urea Nitrogen 31 mg/dL (8-26) H Creatinine 2.8 mg/dL (0.7-1.3) H Estimated GFR (Cockcroft-Gault) 26.3 BUN/Creatinine Ratio 11 (6-20) Glucose Level 135 mg/dL (70-99) H Calcium Level 7.0 mg/dL (8.5-10.1) L Total Bilirubin 0.3 mg/dL (0.2-1.0) Aspartate Amino Transferase (AST) 15 U/L (15-37) Alanine Aminotransferase (ALT) 13 U/L (16-63) L Alkaline Phosphatase 155 U/L (46-116) H Total Protein 7.5 g/dL (6.4-8.2) Albumin 3.3 g/dL (3.4-5.0) L Albumin/Globulin Ratio 0.8 (1.0-1.7) L Laboratory Tests 12/10/18 16:45 Laboratory Tests 12/10/18 16:45 EKG EKG [] Radiology/Procedures Radiology/Procedures [] Course & Med Decision Making Course & Med Decision Making Pertinent Labs and Imaging studies reviewed. (See chart for details) This is a 83-year-old male patient presenting to the ED to be evaluated for hypocalcemia. On arrival to the ED CBC with no acute findings, CMP with potassium of 5.7, creatinine 2.8 BUN 31, calcium 7.0. EKG is negative I spoke with Dr. Concepcion-he stated we give patient a 30 g of Kayexalate and he can be discharged to home. He states patient should follow-up with the corporate traffic manager as well as himself as an outpatient. Dragon Disclaimer Dragon Disclaimer This electronic medical record was generated, in whole or in part, using a voice recognition dictation system. Departure Departure Impression: Primary Impression: Acute on chronic renal failure Additional Impressions: Hyperkalemia Hypocalcemia Disposition: HOME, SELF-CARE Condition: STABLE Referrals: RIDGE CONCEPCION MD (PCP) follow up next week Patient Instructions: Hyperkalemia, Hypocalcemia, Adult Additional Instructions: You were evaluated in the emergency room hypocalcemia, your calcium was 7.0, your potassium 5.7, requested you follow-up with your corporate traffic manager in the course of next week. You can also follow up with him. Problem Qualifiers Primary Impression: Acute on chronic renal failure Acute renal failure type: unspecified Chronic kidney disease stage: unspecified stage Qualified Codes: N17.9 - Acute kidney failure, unspecified; N18.9 - Chronic kidney disease, unspecified GREGORIA ANN CLASSIFIER TENDER Dec 10, 2018 17:13
[2018-12-10] MEDS ORDERED: SODIUM POLYSTYRENE SULFONATE 15 GM/60 ML ORAL.SUSP. PO ONE (17:30)
[2018-12-10 18:02] VITALS: BP 166/62
--- NOTE | 2018-12-11 08:33 | EKG ---
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
[2019-01-13] MEDS ORDERED: CEPH-264 PO (09:43)
== END 2018-12-10 18:30 | disposition home or self-care (01) ==
LOC: ER 15:48
DX: I12.9 Hypertensive chronic kidney disease with stage 1 through stage 4 chronic kidney disease, or unspecified chronic kidney disease (principal); E11.22 Type 2 diabetes mellitus with diabetic chronic kidney disease; N18.9 Chronic kidney disease, unspecified; N17.9 Acute kidney failure, unspecified; E83.51 Hypocalcemia; E87.5 Hyperkalemia; I48.91 Unspecified atrial fibrillation
CPT/HCPCS: 36415; 80053; 85025; 93005; 99284

== ENCOUNTER 2019-01-11 17:12 | Inpatient (IN) | payer MEDICARE ==
[~2019-01-11] VITALS: Ht 177.8 cm; Wt 74.5 kg
[2019-01-11 18:11] LABS: BASO % 0 % (0-3); EOS # 0.2 x10^3/uL (0.0-0.7); EOS % 3 % (0-3); HEMATOCRIT 33.6 % (39.0-53.0); HEMOGLOBIN 10.6 g/dL (13.0-17.5); LYMPH # 1.1 x10^3/uL (1.0-4.8); LYMPH % 18 % (24-48); MEAN CORPUSCULAR HEMOGLOBIN 30 pg (25-35); MEAN CORPUSCULAR HGB CONC 32 g/dL (31-37); MEAN CORPUSCULAR VOLUME 94 fL (79-100); MONO # 0.5 x10^3/uL (0.0-1.1); MONO % 9 % (0-9); NEUT # 4.5 x10^3uL (1.8-7.7); NEUT % 71 % (31-73); PLATELET COUNT 198 x10^3/uL (140-400); RED BLOOD COUNT 3.59 x10^6/uL (4.30-5.70); WHITE BLOOD COUNT 6.4 x10^3/uL (4.0-11.0)
--- NOTE | 2019-01-11 18:11 | PHYS DOC ---
Past Medical History Past Medical History: A-Fib, Diabetes-Type II, Hypertension, Renal Disease Past Surgical History: No Surgical History, Other Additional Past Surgical Histo: PLATE R HIP S/P FALL, stents Alcohol Use: None Drug Use: None Adult General Chief Complaint Chief Complaint: ABNORMAL LABS HPI HPI 83-year-old male presents to ER via POV with his daughter Cristina who reports patient had routine labs done yesterday and was called by his primary care physician's office and was told to come to the ER as his potassium level was 6.9 on his labs. Patient denies any symptoms. He reports his appetite has been normal limits denying any N/V/D. Patient denies any chest pain, palpitations, or shortness of air. Patient states he has been feeling fine. Patient's daughter denies patient having change in behavior/MS. Patient states he has been urinating without symptoms and having regular bowel movements. Patient's daughter states patient has had renal issues and so they have been monitoring his renal functions routinely. Patient lives with his son and his daughter reports he is mostly independent with ADLs. Patient denies any recent illness. Review of Systems Review of Systems Constitutional: Denies fever or chills. Denies fatigue Eyes: Denies change in visual acuity, redness, or eye pain [] HENT: Denies nasal congestion or sore throat [] Respiratory: Denies cough or shortness of breath [] Cardiovascular: Denies CP/palpitations GI: Denies abdominal pain, nausea, vomiting, bloody stools or diarrhea [] : Denies dysuria or hematuria [] Musculoskeletal: Denies back pain or joint pain [] Integument: Denies rash or skin lesions [] Neurologic: Denies headache, focal weakness or sensory changes [] Endocrine: Denies polyuria or polydipsia [] All other systems were reviewed and found to be within normal limits, except as documented in this note. Current Medications Current Medications Current Medications Medications (Trade) Dose Ordered Sig/Katelynn Start Time Stop Time Status Last Admin Dose Admin Albuterol Sulfate (Ventolin Neb Soln) 10 mg 1X ONCE 01/11/19 19:30 4 19:31 DC 01/11/19 19:47 10 MG Calcium Gluconate (Calcium Gluconate) 1,000 mg 1X ONCE 01/11/19 19:30 01/11/19 19:31 DC 01/11/19 19:18 1,000 MG Dextrose (Dextrose 50%-Water Syringe) 25 gm 1X ONCE 01/11/19 19:30 01/11/19 19:31 DC 01/11/19 19:32 25 GM Insulin Human Regular (HumuLIN R VIAL) 10 unit 1X ONCE 01/11/19 19:30 01/11/19 19:31 DC 01/11/19 19:30 10 UNIT Sodium Polystyrene Sulfonate (Kayexalate) 30 gm 1X ONCE 01/11/19 20:45 01/11/19 20:46 Sodium Bicarbonate (Sodium Bicarb Adult 8.4% Syr) 50 meq 1X ONCE 01/11/19 19:30 01/11/19 19:31 DC 01/11/19 19:26 50 MEQ Allergies Allergies Allergies Coded Allergies Type Severity Reaction Last Updated Verified No Known Drug Allergies 09/03/18 No Physical Exam Physical Exam Constitutional: Well developed, well nourished, no acute distress, non-toxic appearance. [] HENT: Normocephalic, atraumatic, oropharynx moist, nose normal. [] Eyes: Pupils equal, conjunctiva normal, no discharge. [] Neck: Normal range of motion, no tenderness, supple, no stridor. [] Cardiovascular: Heart rate regular rhythm, no murmur [] Lungs & Thorax: Bilateral breath sounds clear to auscultation. Resp. equal/ nonlabored Abdomen: Bowel sounds normal, soft, no tenderness Skin: Warm, dry, no erythema, no rash. [] Back: No tenderness, no CVA tenderness. [] Extremities: No tenderness, no cyanosis, no clubbing, ROM intact, no edema. [] Neurologic: Alert and oriented X 3, normal motor function, normal sensory function, no focal deficits noted. [] Psychologic: Affect normal, judgement normal, mood normal. [] Current Patient Data Vital Signs Vital Signs Date Time Temp Pulse Resp B/P (MAP) Pulse Ox O2 Delivery O2 Flow Rate FiO2 01/11/19 19:48 100 Room Air 01/11/19 17:20 98.7 73 18 170/93 (118) 98.7 Lab Values Laboratory Tests Test 01/11/19 18:05 White Blood Count 6.4 x10^3/uL (4.0-11.0) Red Blood Count 3.59 x10^6/uL (4.30-5.70) L Hemoglobin 10.6 g/dL (13.0-17.5) L Hematocrit 33.6 % (39.0-53.0) L Mean Corpuscular Volume 94 fL (79-100) Mean Corpuscular Hemoglobin 30 pg (25-35) Mean Corpuscular Hemoglobin Concent 32 g/dL (31-37) Red Cell Distribution Width 14.0 % (11.5-14.5) Platelet Count 198 x10^3/uL (140-400) Neutrophils (%) (Auto) 71 % (31-73) Lymphocytes (%) (Auto) 18 % (24-48) L Monocytes (%) (Auto) 9 % (0-9) Eosinophils (%) (Auto) 3 % (0-3) Basophils (%) (Auto) 0 % (0-3) Neutrophils # (Auto) 4.5 x10^3uL (1.8-7.7) Lymphocytes # (Auto) 1.1 x10^3/uL (1.0-4.8) Monocytes # (Auto) 0.5 x10^3/uL (0.0-1.1) Eosinophils # (Auto) 0.2 x10^3/uL (0.0-0.7) Basophils # (Auto) 0.0 x10^3/uL (0.0-0.2) Urine Collection Type Unknown Urine Color Yellow Urine Clarity Clear Urine pH 5.5 Urine Specific [place] 1.015 Urine Protein 100 mg/dL (NEG-TRACE) Urine Glucose (UA) Negative mg/dL (NEG) Urine Ketones (Stick) Negative mg/dL (NEG) Urine Blood Negative (NEG) Urine Nitrite Negative (NEG) Urine Bilirubin Negative (NEG) Urine Urobilinogen Dipstick 1.0 mg/dL (0.2 mg/dL) Urine Leukocyte Esterase Small (NEG) Urine RBC 0 /HPF (0-2) Urine WBC 20-40 /HPF (0-4) Urine Squamous Epithelial Cells Many /LPF Urine Bacteria 0 /HPF (0-FEW) Urine Hyaline Casts Few /HPF Urine Mucus Slight /LPF Urine Trichomonas Present Sodium Level 145 mmol/L (136-145) Potassium Level 6.3 mmol/L (3.5-5.1) *H Chloride Level 112 mmol/L (98-107) H Carbon Dioxide Level 19 mmol/L (21-32) L Anion Gap 14 (6-14) Blood Urea Nitrogen 41 mg/dL (8-26) H Creatinine 3.1 mg/dL (0.7-1.3) H Estimated GFR (Cockcroft-Gault) 23.3 BUN/Creatinine Ratio 13 (6-20) Glucose Level 123 mg/dL (70-99) H Calcium Level 6.3 mg/dL (8.5-10.1) L Magnesium Level 1.5 mg/dL (1.8-2.4) L Total Bilirubin 0.2 mg/dL (0.2-1.0) Aspartate Amino Transferase (AST) 13 U/L (15-37) L Alanine Aminotransferase (ALT) 16 U/L (16-63) Alkaline Phosphatase 133 U/L (46-116) H Creatine Kinase 111 U/L (39-308) Troponin I Quantitative 0.043 ng/mL (0.000-0.055) JS-Hxq-L-Type Natriuretic Peptide 693 pg/mL (0-449) H Total Protein 6.8 g/dL (6.4-8.2) Albumin 3.1 g/dL (3.4-5.0) L Albumin/Globulin Ratio 0.8 (1.0-1.7) L Laboratory Tests 01/11/19 18:05 Laboratory Tests 01/11/19 18:05 EKG EKG EKG obtained 01/11/19 Interpreted by ER physician Sinus rhythm Ltward axis Rate 68 No STEMI Radiology/Procedures Radiology/Procedures [] Course & Med Decision Making Course & Med Decision Making Pertinent Labs and Imaging studies reviewed. (See chart for details) 1924: Lab called with patient's potassium at 6.3 which was improved from his labs from yesterday which was reported at 6.9. Pt's case and plan of care was discussed with Dr. Geiger- patient will be admitted to his primary care physician and orders will be placed for treatment for his hyperkalemia. Patient' s renal functions are also elevated. Test results were discussed with patient and his daughter along with admit plan. Patient continues to deny any symptoms and is in no visible distress. Vital signs remained stable. Patient had EKG with no acute ST elevation or STEMI and troponin was 0.043. 1999: Spoke with Dr. Concepcion, patient's primary care physician and discussed patient's case and plan of care. Will admit to his services and he requested nephrology be consult did and patient to receive 1 dose of Kayexalate [address] Geiger had viewed pt's chest xray with no obvious acute findings. Dragon Disclaimer Dragon Disclaimer This electronic medical record was generated, in whole or in part, using a voice recognition dictation system. Departure Departure Impression: Primary Impression: Acute on chronic renal failure Additional Impression: Hyperkalemia Disposition: 09 ADMITTED INPATIENT Admitting Physician: Glen Concepcion Condition: STABLE Referrals: GLEN CONCEPCION MD (PCP) Problem Qualifiers DORON [employer] Jan 11, 2019 18:11
[2019-01-11 18:12] LABS: BILIRUBIN,URINE NEGATIVE (NEG); CLARITY,URINE CLEAR; COLOR,URINE YELLOW; NITRITE,URINE NEGATIVE (NEG); PH,URINE 5.5; PROTEIN,URINE 100 mg/dL (NEG-TRACE)
[2019-01-11 18:18] LABS: HYALINE CASTS, URINE FEW /HPF; SQUAMOUS EPITHELIAL CELL,UR MANY /LPF
[2019-01-11 18:19] LABS: BACTERIA,URINE 0 /HPF (0-FEW); RBC,URINE 0 /HPF (0-2); TRICHOMONAS,URINE PRESENT; WBC,URINE 20-40 /HPF (0-4)
[2019-01-11 18:29] LABS: ALBUMIN 3.1 g/dL (3.4-5.0); ALBUMIN/GLOBULIN RATIO 0.8 (1.0-1.7); CALCIUM 6.3 mg/dL (8.5-10.1); CREATININE 3.1 mg/dL (0.7-1.3); GFR 23.3; MAGNESIUM 1.5 mg/dL (1.8-2.4); TOTAL BILIRUBIN 0.2 mg/dL (0.2-1.0); TOTAL PROTEIN 6.8 g/dL (6.4-8.2)
[2019-01-11 18:37] LABS: POTASSIUM 6.3 mmol/L (3.5-5.1)
[2019-01-11] MEDS ORDERED: SODIUM BICARB ADULT 8.4% 50 MEQ/50 ML DISP.SYRIN. IV ONE (19:30)
[2019-01-11] MEDS ORDERED: INSULIN REGULAR 100 UNIT/ML 3ML VIAL. IV ONE (19:30)
[2019-01-11] MEDS ORDERED: ALBUTEROL SULFATE 2.5 MG/3 ML NEBU. CONT NEB ONE (19:30)
[2019-01-11] MEDS ORDERED: CALCIUM GLUCONATE 1,000 MG/10 ML VIAL. IVP ONE (19:30)
[2019-01-11] MEDS ORDERED: DEXTROSE 50% 25 GM / 50ML DISP.SYRIN. IV ONE (19:30)
[2019-01-11] MEDS ORDERED: metroNIDAZOLE 500 MG TABLET PO ONE (20:45)
[2019-01-11] MEDS ORDERED: SODIUM POLYSTYRENE SULFONATE 15 GM/60 ML ORAL.SUSP. PO ONE (20:45)
[2019-01-11 21:15] VITALS: BP 128/84
[2019-01-11] MEDS ORDERED: cefTRIAXone IV Push 1 GM VIAL. IVP ONE (21:15)
[2019-01-11 23:00] VITALS: BP 119/75
[2019-01-12 03:03] VITALS: BP 130/78
[2019-01-12 04:16] LABS: BASO % 0 % (0-3); EOS % 0 % (0-3); HEMATOCRIT 31.3 % (39.0-53.0); HEMOGLOBIN 9.9 g/dL (13.0-17.5); LYMPH # 0.6 x10^3/uL (1.0-4.8); LYMPH % 8 % (24-48); MEAN CORPUSCULAR HEMOGLOBIN 29 pg (25-35); MEAN CORPUSCULAR HGB CONC 32 g/dL (31-37); MEAN CORPUSCULAR VOLUME 93 fL (79-100); MONO # 0.7 x10^3/uL (0.0-1.1); MONO % 9 % (0-9); NEUT # 6.3 x10^3uL (1.8-7.7); NEUT % 83 % (31-73); PLATELET COUNT 180 x10^3/uL (140-400); RED BLOOD COUNT 3.37 x10^6/uL (4.30-5.70); WHITE BLOOD COUNT 7.6 x10^3/uL (4.0-11.0)
--- NOTE | 2019-01-12 04:24 | NUR ---
Patient arrived to unit on 01/11 at 2100. VS stable, Assessment complete. Patient on room air. Checked and recorded pt belongings. Pt is a poor historian. Called daughter, Cristina, to confirm patient home meds. Will continue to monitor patient. call light placed in reach, bed alarm set.
[2019-01-12 04:38] LABS: ALBUMIN/GLOBULIN RATIO 0.9 (1.0-1.7); CALCIUM 6.4 mg/dL (8.5-10.1); CREATININE 3.1 mg/dL (0.7-1.3); GFR 23.3; POTASSIUM 5.1 mmol/L (3.5-5.1); TOTAL BILIRUBIN 0.2 mg/dL (0.2-1.0); TOTAL PROTEIN 6.4 g/dL (6.4-8.2)
[2019-01-12 07:00] VITALS: BP 127/76
--- NOTE | 2019-01-12 07:07 | EKG ---
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
--- NOTE | 2019-01-12 07:39 | RAD ---
CHEST AP ONLY Clinical Indication: ELEVATED K+ LEVEL ON LABS Comparison: 12/24/2017 two-view chest x-ray exam. Findings: Smoothly marginated tissue density at the superior mediastinal level may represent goiter and is unchanged. The cardiomediastinal silhouette is normal. Lungs are clear. There is no pneumothorax. No pleural effusion is appreciated. No acute bone abnormality. IMPRESSION: No acute cardiopulmonary process. Electronically signed by: Jaziel Mar MD (01/12/2019 7:36 AM) [facility] [place]
[2019-01-12] MEDS: SODIUM BICARBONATE 650 MG TABLET. PO SCH ×2 (08:32→20:22)
[2019-01-12] MEDS: APIXABAN 2.5 MG TABLET. PO SCH ×2 (08:33→20:22)
[2019-01-12] MEDS: AMIODARONE HCL 200 MG TABLET. PO SCH (08:33)
--- NOTE | 2019-01-12 09:18 | PDOC2 ---
CONSULT Date of Consult Date of Consult DATE: 01/12/19 TIME: 09:15 Source Source: Caregiver, Chart review History of Present Illness Reason for Visit: Poor Historian, No family at bedside - Hx obtained from Chart 83-year-old male presented to ER with his daughter who reports patient had routine labs done yesterday and was called by his primary care physician's office and was told to come to the ER as his potassium level was 6.9 on his labs. Patient denies any symptoms. He reports his appetite has been normal limits denying any N/V/D. Patient denies any chest pain, palpitations, or shortness of air. Patient states he has been feeling fine. Patient's daughter denies patient having change in behavior/MS. Patient states he has been urinating without symptoms and having regular bowel movements. Patient's daughter states patient has had renal issues and so they have been monitoring his renal functions routinely. Patient lives with his son and his daughter reports he is mostly independent with ADLs. Patient denies any recent illness. Received 1 dose of Kayexalate 30 g in ER Currently pt denies any complaints- No CP, SOB. No N.V/D. No symptoms of UTI States Good UOP. Denies any NSAID use . No recent hospitalization Past Medical History Cardiovascular: AFIB, [place] Musculoskeletal: Osteoarthritis, Other Renal/: Chronic renal insuff Past Surgical History Past Surgical History: Total hip replacement Family History Family History: Hypertension Social History ALCOHOL: none Drugs: None Lives: Alone Current Medications Current Medications Current Medications Sodium Bicarbonate (Sodium Bicarb Adult 8.4% Syr) 50 meq 1X ONCE IV Last administered on 01/11/19 19:26; Start 01/11/19 at 19:30; Stop 01/11/19 at 19:31; Status DC Dextrose (Dextrose 50%-Water Syringe) 25 gm 1X ONCE IV Last administered on 19:32; Start 01/11/19 at 19:30; Stop 01/11/19 at 19:31; Status DC Insulin Human Regular (HumuLIN R VIAL) 10 unit 1X ONCE IV Last administered on 01/11/19 19:30; Start 01/11/19 at 19:30; Stop 01/11/19 at 19:31; Status DC Calcium Gluconate (Calcium Gluconate) 1,000 mg 1X ONCE IVP Last administered on 01/11/19 19:18; Start 01/11/19 at 19:30; Stop 01/11/19 at 19:31; Status DC Albuterol Sulfate (Ventolin Neb Soln) 10 mg 1X ONCE CONT NEB Last administered on 01/11/19at 19:47; Start 01/11/19 at 19:30; Stop 01/11/19 at 19:31; Status DC Sodium Polystyrene Sulfonate (Kayexalate) 30 gm 1X ONCE PO Last administered on 01/11/19 20:48; Start 01/11/19 at 20:45; Stop 01/11/19 at 20:46; Status DC Ceftriaxone Sodium (Rocephin) 1 gm 1X ONCE IVP Last administered on 01/11/19 20:48; Start 01/11/19 at 21:15; Stop 01/11/19 at 21:16; Status DC Metronidazole (Flagyl) 2,000 mg 1X ONCE PO Last administered on 01/11/19 20:47 ; Start 01/11/19 at 20:45; Stop 01/11/19 at 20:49; Status DC Amiodarone HCl (Cordarone) 200 mg DAILY PO Last administered on 01/12/19 08:33 ; Start 01/12/19 at 09:00 Apixaban (Eliquis) 2.5 mg BID PO Last administered on 01/12/19 08:33; Start at 09:00 Atorvastatin Calcium (Lipitor) 20 mg HS PO ; Start 01/12/19 at 21:00 Sodium Bicarbonate (Sodium Bicarbonate) 650 mg BID PO Last administered on 01/12 08:32; Start 01/12/19 at 09:00 Diltiazem HCl (Cardizem 24hr Cd) 240 mg DAILY PO Last administered on 08:32; Start 01/12/19 at 09:00 Active Scripts Active Diltiazem 24Hr Cd (Diltiazem HCl) 240 Mg Cap.er.24h 240 Mg PO DAILY 30 Days Amiodarone Hcl 200 Mg Tablet 200 Mg PO DAILY 30 Days Eliquis (Apixaban) 2.5 Mg Tablet 2.5 Mg PO BID 30 Days Reported Sodium Bicarbonate 650 Mg Tablet 1 Tab PO BID Atorvastatin Calcium 20 Mg Tablet 1 Tab PO DAILY Allergies Allergies: Coded Allergies: No Known Drug Allergies (Unverified , 11/30/18) ROS Review of System As per HPI Physical Exam Physical Exam GEN: NAD HEEN: OM NECK: Supple CV : RRR RESP: CTA Bilat, No Acc. Muscle Use GI: BS + ve, Non Tender, Non Distended : No CVA tenderness, No Suprapubic Tenderness, No Angel NEURO- AXOX3 Derm - No Rash Vital Signs Vital Signs Date Time Temp Pulse Resp B/P (MAP) Pulse Ox O2 Delivery O2 Flow Rate FiO2 01/12/19 08:33 78 127/76 01/12/19 07:00 98.6 18 95 Room Air 98.6 Assessment & Plan XUAN on CKD - baseline Creatinine in 1.8-2.4 Not on PIPER-I/ARB/Diuretics Hospitalization x 2 for XUAN in past gentle hydration, IVF, I/O Monitor CKD stage 4 Follows with our office, seen yesterday by WHANAU SUPPORT WORKER Sent to ED for Hyperkalemia UA WBC's +, Esterase+, Nitrite -ve denies symptoms of UTI defer to Primary HTN -BP at goal Not on PIPER-I/ARB Hyperkalemia- Resolved Metabolic acidosis- Chronic On PO Na HCo3 Labs Labs Laboratory Tests Test 01/11/19 18:05 01/12/19 03:35 White Blood Count 6.4 x10^3/uL (4.0-11.0) 7.6 x10^3/uL (4.0-11.0) Red Blood Count 3.59 x10^6/uL (4.30-5.70) 3.37 x10^6/uL (4.30-5.70) Hemoglobin 10.6 g/dL (13.0-17.5) 9.9 g/dL (13.0-17.5) Hematocrit 33.6 % (39.0-53.0) 31.3 % (39.0-53.0) Mean Corpuscular Volume 94 fL (79-100) 93 fL (79-100) Mean Corpuscular Hemoglobin 30 pg (25-35) 29 pg (25-35) Mean Corpuscular Hemoglobin Concent 32 g/dL (31-37) 32 g/dL (31-37) Red Cell Distribution Width 14.0 % (11.5-14.5) 14.0 % (11.5-14.5) Platelet Count 198 x10^3/uL (140-400) 180 x10^3/uL (140-400) Neutrophils (%) (Auto) 71 % (31-73) 83 % (31-73) Lymphocytes (%) (Auto) 18 % (24-48) 8 % (24-48) Monocytes (%) (Auto) 9 % (0-9) 9 % (0-9) Eosinophils (%) (Auto) 3 % (0-3) 0 % (0-3) Basophils (%) (Auto) 0 % (0-3) 0 % (0-3) Neutrophils # (Auto) 4.5 x10^3uL (1.8-7.7) 6.3 x10^3uL (1.8-7.7) Lymphocytes # (Auto) 1.1 x10^3/uL (1.0-4.8) 0.6 x10^3/uL (1.0-4.8) Monocytes # (Auto) 0.5 x10^3/uL (0.0-1.1) 0.7 x10^3/uL (0.0-1.1) Eosinophils # (Auto) 0.2 x10^3/uL (0.0-0.7) 0.0 x10^3/uL (0.0-0.7) Basophils # (Auto) 0.0 x10^3/uL (0.0-0.2) 0.0 x10^3/uL (0.0-0.2) Urine Collection Type Unknown Urine Color Yellow Urine Clarity Clear Urine pH 5.5 Urine Specific Celina 1.015 Urine Protein 100 mg/dL (NEG-TRACE) Urine Glucose (UA) Negative mg/dL (NEG) Urine Ketones (Stick) Negative mg/dL (NEG) Urine Blood Negative (NEG) Urine Nitrite Negative (NEG) Urine Bilirubin Negative (NEG) Urine Urobilinogen Dipstick 1.0 mg/dL (0.2 mg/dL) Urine Leukocyte Esterase Small (NEG) Urine RBC 0 /HPF (0-2) Urine WBC 20-40 /HPF (0-4) Urine Squamous Epithelial Cells Many /LPF Urine Bacteria 0 /HPF (0-FEW) Urine Hyaline Casts Few /HPF Urine Mucus Slight /LPF Urine Trichomonas Present Sodium Level 145 mmol/L (136-145) 144 mmol/L (136-145) Potassium Level 6.3 mmol/L (3.5-5.1) 5.1 mmol/L (3.5-5.1) Chloride Level 112 mmol/L (98-107) 111 mmol/L (98-107) Carbon Dioxide Level 19 mmol/L (21-32) 18 mmol/L (21-32) Anion Gap 14 (6-14) 15 (6-14) Blood Urea Nitrogen 41 mg/dL (8-26) 42 mg/dL (8-26) Creatinine 3.1 mg/dL (0.7-1.3) 3.1 mg/dL (0.7-1.3) Estimated GFR (Cockcroft-Gault) 23.3 23.3 BUN/Creatinine Ratio 13 (6-20) 14 (6-20) Glucose Level 123 mg/dL (70-99) 162 mg/dL (70-99) Calcium Level 6.3 mg/dL (8.5-10.1) 6.4 mg/dL (8.5-10.1) Magnesium Level 1.5 mg/dL (1.8-2.4) Total Bilirubin 0.2 mg/dL (0.2-1.0) 0.2 mg/dL (0.2-1.0) Aspartate Amino Transf (AST/SGOT) 13 U/L (15-37) 15 U/L (15-37) Alanine Aminotransferase (ALT/SGPT) 16 U/L (16-63) 13 U/L (16-63) Alkaline Phosphatase 133 U/L (46-116) 119 U/L (46-116) Creatine Kinase 111 U/L (39-308) Troponin I Quantitative 0.043 ng/mL (0.000-0.055) HA-Sot-Q-Type Natriuretic Peptide 693 pg/mL (0-449) Total Protein 6.8 g/dL (6.4-8.2) 6.4 g/dL (6.4-8.2) Albumin 3.1 g/dL (3.4-5.0) 3.0 g/dL (3.4-5.0) Albumin/Globulin Ratio 0.8 (1.0-1.7) 0.9 (1.0-1.7) Laboratory Tests Test 01/11/19 18:05 01/12/19 03:35 White Blood Count 6.4 x10^3/uL (4.0-11.0) 7.6 x10^3/uL (4.0-11.0) Red Blood Count 3.59 x10^6/uL (4.30-5.70) 3.37 x10^6/uL (4.30-5.70) Hemoglobin 10.6 g/dL (13.0-17.5) 9.9 g/dL (13.0-17.5) Hematocrit 33.6 % (39.0-53.0) 31.3 % (39.0-53.0) Mean Corpuscular Volume 94 fL (79-100) 93 fL (79-100) Mean Corpuscular Hemoglobin 30 pg (25-35) 29 pg (25-35) Mean Corpuscular Hemoglobin Concent 32 g/dL (31-37) 32 g/dL (31-37) Red Cell Distribution Width 14.0 % (11.5-14.5) 14.0 % (11.5-14.5) Platelet Count 198 x10^3/uL (140-400) 180 x10^3/uL (140-400) Neutrophils (%) (Auto) 71 % (31-73) 83 % (31-73) Lymphocytes (%) (Auto) 18 % (24-48) 8 % (24-48) Monocytes (%) (Auto) 9 % (0-9) 9 % (0-9) Eosinophils (%) (Auto) 3 % (0-3) 0 % (0-3) Basophils (%) (Auto) 0 % (0-3) 0 % (0-3) Neutrophils # (Auto) 4.5 x10^3uL (1.8-7.7) 6.3 x10^3uL (1.8-7.7) Lymphocytes # (Auto) 1.1 x10^3/uL (1.0-4.8) 0.6 x10^3/uL (1.0-4.8) Monocytes # (Auto) 0.5 x10^3/uL (0.0-1.1) 0.7 x10^3/uL (0.0-1.1) Eosinophils # (Auto) 0.2 x10^3/uL (0.0-0.7) 0.0 x10^3/uL (0.0-0.7) Basophils # (Auto) 0.0 x10^3/uL (0.0-0.2) 0.0 x10^3/uL (0.0-0.2) Urine Collection Type Unknown Urine Color Yellow Urine Clarity Clear Urine pH 5.5 Urine Specific Celina 1.015 Urine Protein 100 mg/dL (NEG-TRACE) Urine Glucose (UA) Negative mg/dL (NEG) Urine Ketones (Stick) Negative mg/dL (NEG) Urine Blood Negative (NEG) Urine Nitrite Negative (NEG) Urine Bilirubin Negative (NEG) Urine Urobilinogen Dipstick 1.0 mg/dL (0.2 mg/dL) Urine Leukocyte Esterase Small (NEG) Urine RBC 0 /HPF (0-2) Urine WBC 20-40 /HPF (0-4) Urine Squamous Epithelial Cells Many /LPF Urine Bacteria 0 /HPF (0-FEW) Urine Hyaline Casts Few /HPF Urine Mucus Slight /LPF Urine Trichomonas Present Sodium Level 145 mmol/L (136-145) 144 mmol/L (136-145) Potassium Level 6.3 mmol/L (3.5-5.1) 5.1 mmol/L (3.5-5.1) Chloride Level 112 mmol/L (98-107) 111 mmol/L (98-107) Carbon Dioxide Level 19 mmol/L (21-32) 18 mmol/L (21-32) Anion Gap 14 (6-14) 15 (6-14) Blood Urea Nitrogen 41 mg/dL (8-26) 42 mg/dL (8-26) Creatinine 3.1 mg/dL (0.7-1.3) 3.1 mg/dL (0.7-1.3) Estimated GFR (Cockcroft-Gault) 23.3 23.3 BUN/Creatinine Ratio 13 (6-20) 14 (6-20) Glucose Level 123 mg/dL (70-99) 162 mg/dL (70-99) Calcium Level 6.3 mg/dL (8.5-10.1) 6.4 mg/dL (8.5-10.1) Magnesium Level 1.5 mg/dL (1.8-2.4) Total Bilirubin 0.2 mg/dL (0.2-1.0) 0.2 mg/dL (0.2-1.0) Aspartate Amino Transf (AST/SGOT) 13 U/L (15-37) 15 U/L (15-37) Alanine Aminotransferase (ALT/SGPT) 16 U/L (16-63) 13 U/L (16-63) Alkaline Phosphatase 133 U/L (46-116) 119 U/L (46-116) Creatine Kinase 111 U/L (39-308) Troponin I Quantitative 0.043 ng/mL (0.000-0.055) CV-Mde-X-Type Natriuretic Peptide 693 pg/mL (0-449) Total Protein 6.8 g/dL (6.4-8.2) 6.4 g/dL (6.4-8.2) Albumin 3.1 g/dL (3.4-5.0) 3.0 g/dL (3.4-5.0) Albumin/Globulin Ratio 0.8 (1.0-1.7) 0.9 (1.0-1.7) Review All relevant outside records, renal labs, imaging studies, telemetry/EKG's were reviewed. Images Images CxR-- Smoothly marginated tissue density at the superior mediastinal level may represent goiter and is unchanged. The cardiomediastinal silhouette is normal. Lungs are clear. There is no pneumothorax. No pleural effusion is appreciated. No acute bone abnormality. IMPRESSION: No acute cardiopulmonary process. US 12/2017-- The right kidney measures 13.1 cm in length while the left kidney measures 11.4 cm. There are several bilateral renal cysts. The largest of these lies on the right and arises from the upper pole. It measures 9.3 cm. The largest cyst on the left measures 5.2 cm. No solid renal mass is delineated. There is no evidence of hydronephrosis. The partially filled urinary bladder is unremarkable. IMPRESSION: Bilateral renal cysts NATHEN RANKIN MD Jan 12, 2019 09:18
[2019-01-12] MEDS ORDERED: MAGNESIUM SULFATE 2GM 50 ML IV ONE (10:00)
--- NOTE | 2019-01-12 10:05 | PDOC ---
Provider Note Provider Note Pt seen.H&P dictated.#[id number]. RIDGE OROPEZA MD Jan 12, 2019 10:05
[2019-01-12] MEDS: IV NORMAL SALINE 1000ML BAG 1,000 ML IV SCH ×2 (10:44→23:30)
--- NOTE | 2019-01-12 10:54 | HP ---
ADMIT DATE: 01/11/2019 LOCATION: 248. REASON FOR ADMISSION TO THE HOSPITAL: Hyperkalemia, acute on chronic kidney disease. HISTORY OF PRESENT ILLNESS: The patient is an 83-year-old male with history of chronic polycystic kidney disease, and the patient sees a renal doctor because of his hyperkalemia and kidney problems and had routine labs drawn yesterday in the office and shows 6.9 potassium. The patient was recommended to come to the ER. The patient was given Kayexalate, sodium bicarbonate and IV fluids in the Emergency Room, was admitted to the hospital. His potassium came down to 5.1, it was 6.3 yesterday. PAST MEDICAL HISTORY: The patient has a history of atrial fibrillation, rate controlled. Hypertension, polycystic kidney disease, chronic kidney disease, borderline diabetes, COPD. PAST SURGICAL HISTORY: Had hip surgeries, had a fall in the past. He also has some stents in the artery for circulation. PERSONAL HISTORY: Smoker, smoked for at least 50 years, 1 pack and stopped smoking a couple of years back. Denies alcohol. ALLERGIES: No known drug allergies. MEDICATIONS AT HOME: The patient is on amiodarone 200 mg daily, Eliquis 2.5 mg twice a day, atorvastatin 20 mg daily, Cardizem 240 mg daily, sodium bicarbonate 650 mg twice a day. FAMILY HISTORY: Unremarkable. SOCIAL HISTORY: Lives with his daughter. His last year and able to ambulate with a walker. REVIEW OF SYSTEMS: CARDIAC: Denies any chest pain. GASTROINTESTINAL: No nausea or vomiting. NEUROLOGICAL: No weakness. The rest of the 14-system review negative. PHYSICAL EXAMINATION: GENERAL: The patient is pleasant, not in any distress. VITAL SIGNS: Show a temperature 98, pulse 73, respirations 18, blood pressure 170/93, 97 on room air. HEENT: Head is atraumatic. Pupils equal. Oral cavity: No congestion. Has dentures. NECK: Supple. Thyroid not enlarged. JVD not elevated. CHEST: Symmetrical, COPD pattern. CARDIOVASCULAR: S1, S2. LUNGS: Diminished breath sounds. No wheezing. ABDOMEN: Soft, no mass palpable. EXTERNAL GENITALIA: No Angel. RECTAL: Deferred. EXTREMITIES: No calf tenderness, no edema. Pulses 1+. NEUROLOGIC: Moving all extremities. No focal deficits noted. LABORATORY DATA: Shows a white count of 6, hemoglobin 10.6, platelets 198. Shows sodium 145, potassium 6.3, BUN 41, creatinine 3.1, glucose 124, calcium 6.3, low. Magnesium of 1.5, low. LFTs were normal. BNP 693. Troponin negative 0.04. Urine shows 20-40 wbc's, small leukocyte esterase. Chest x-ray shows no acute process. FINAL IMPRESSION: 1. Hyperkalemia. 2. Chronic kidney disease. 3. Polycystic kidney disease. 4. Chronic atrial fibrillation, rate controlled. 5. Hypertension. 6. Borderline diabetes. 7. Low calcium. PLAN: At this time, was admit to hospital, was given Kayexalate and was given albuterol, sodium bicarbonate and Kayexalate. Also renal consult and monitor potassium and replace magnesium and also replace calcium. RIDGE OROPEZA MD DR: BALAJI/tea JOB#: [id number] / [id number]
[2019-01-12 11:00] VITALS: BP 129/65
--- NOTE | 2019-01-12 11:00 | NUR ---
SS following for discharge planning. SS reviewed pt chart. Pt is from home and is currently on room air. No discharge needs noted at this time. SS will continue to follow for pending discharge needs.
[2019-01-12 15:01] VITALS: BP 125/68
[2019-01-12] MEDS: ANTI-COAG MONITOR BY PHARMACY. MC PRN (15:04)
[2019-01-12] MEDS ORDERED: cefTRIAXone IV Push 1 GM VIAL. IVP SCH (18:00)
[2019-01-12 19:00] VITALS: BP 121/66
[2019-01-12] MEDS: LACTOBACILLUS RHAMNOSUS GG 1 CAPSULE. PO SCH (20:22)
[2019-01-12] MEDS ORDERED: ATORVASTATIN CALCIUM 20 MG TABLET PO SCH (21:00)
[2019-01-12 22:58] VITALS: BP 156/84
[2019-01-13 03:13] VITALS: BP 151/91
[2019-01-13 04:48] LABS: CALCIUM 6.9 mg/dL (8.5-10.1); CREATININE 2.5 mg/dL (0.7-1.3); GFR 29.9; MAGNESIUM 1.9 mg/dL (1.8-2.4); POTASSIUM 4.6 mmol/L (3.5-5.1)
[2019-01-13 06:35] VITALS: BP 167/83
[2019-01-13] MEDS: ANTI-COAG MONITOR BY PHARMACY. MC PRN (08:17)
[2019-01-13] MEDS: SODIUM BICARBONATE 650 MG TABLET. PO SCH (08:26)
[2019-01-13] MEDS: APIXABAN 2.5 MG TABLET. PO SCH (08:26)
[2019-01-13] MEDS: LACTOBACILLUS RHAMNOSUS GG 1 CAPSULE. PO SCH (08:26)
[2019-01-13] MEDS: AMIODARONE HCL 200 MG TABLET. PO SCH (08:27)
--- NOTE | 2019-01-13 09:41 | PDOC ---
PROGRESS NOTES Subjective Subjective ready to go home Objective Objective Vital Signs Date Time Temp Pulse Resp B/P (MAP) Pulse Ox O2 Delivery O2 Flow Rate FiO2 01/13/19 08:27 71 167/83 01/13/19 07:41 Room Air 01/13/19 06:35 98.0 16 98 98.0 Intake and Output 01/13/19 06:59 Intake Total 2877.3 ml Output Total 2375 ml Balance 502.3 ml Intake Oral 1500 ml IV Total 1377.3 ml Output Urine Total 2375 ml # Voids 5 Physical Exam Abdomen: Normal bowel sounds, Soft Heart: Regular rate, Normal S1 Extremities: No clubbing General: Alert, Oriented X3 HEENT: Atraumatic Lungs: Clear to auscultation MUSCULOSKELETAL: No deformity Neck: Supple Neuro: Normal speech Psych/Mental Status: Mental status NL Skin: No breakdown Assessment Assessment FINAL IMPRESSION: 1. Hyperkalemia. 2. Chronic kidney disease. 3. Polycystic kidney disease. 4. Chronic atrial fibrillation, rate controlled. 5. Hypertension. 6. Borderline diabetes. 7. Low calcium. PLAN: pot down to 4.5. cr 2.5 with hydration base line kidney function d/c home today nitrition consult for low pot diet. urine c/s pending.treat with keflex At this time, was admit to hospital, was given Kayexalate and was given albuterol, sodium bicarbonate and Kayexalate. Also renal consult and monitor potassium and replace magnesium and also replace calcium. Comment Review of Relevant I have reviewed the following items ladonna (where applicable) has been applied. Labs Laboratory Tests Test 01/13/19 03:20 Sodium Level 145 mmol/L (136-145) Potassium Level 4.6 mmol/L (3.5-5.1) Chloride Level 112 mmol/L (98-107) Carbon Dioxide Level 18 mmol/L (21-32) Anion Gap 15 (6-14) Blood Urea Nitrogen 39 mg/dL (8-26) Creatinine 2.5 mg/dL (0.7-1.3) Estimated GFR (Cockcroft-Gault) 29.9 Glucose Level 79 mg/dL (70-99) Calcium Level 6.9 mg/dL (8.5-10.1) Magnesium Level 1.9 mg/dL (1.8-2.4) Medications Current Medications Atorvastatin Calcium (Lipitor) 20 mg HS PO Last administered on 01/12/19at 20:22 ; Start 01/12/19 at 21:00 Ceftriaxone Sodium (Rocephin) 1 gm Q24H IVP Last administered on 01/12/19at 17: 35; Start 01/12/19 at 18:00 Info (Anti-Coagulation Monitoring By Pharmacy) 1 each PRN DAILY PRN MC SEE COMMENTS Last administered on 01/13/19at 08:17; Start 01/12/19 at 15:15 Lactobacillus Rhamnosus (Culturelle) 1 cap BID PO Last administered on 08:26; Start 01/12/19 at 21:00 Magnesium Sulfate 50 ml @ 25 mls/hr 1X ONCE IV Last administered on 01/12/19at 10:45; Start 01/12/19 at 10:00; Stop 01/12/19 at 11:59; Status DC Sodium Chloride 1,000 ml @ 75 mls/hr [id number] IV Last administered on at 23:30; Start 01/12/19 at 10:00 Vitals/I & O Vital Sign - Last 24 Hours 01/12/19 01/12/19 01/12/19 01/12/19 11:00 15:01 19:00 19:20 Temp 98.2 98.1 98.3 98.2 98.1 98.3 Pulse 74 65 70 Resp 18 18 16 B/P (MAP) 129/65 (86) 125/68 (87) 121/66 (84) Pulse Ox 95 95 93 O2 Delivery Room Air Room Air Room Air Room Air 01/12/19 01/13/19 01/13/19 01/13/19 22:58 03:13 06:35 07:41 Temp 98.1 98.2 98.0 98.1 98.2 98.0 Pulse 66 64 71 Resp 18 18 16 B/P (MAP) 156/84 (108) 151/91 (111) 167/83 (111) Pulse Ox 94 96 98 O2 Delivery Room Air Room Air Room Air Room Air 01/13/19 01/13/19 08:26 08:27 Pulse 71 71 B/P (MAP) 167/83 167/83 Intake and Output 01/12/19 01/12/19 01/13/19 14:59 22:59 06:59 Intake Total 850 ml 500 ml 1527.3 ml Output Total 250 ml 1425 ml 700 ml Balance 600 ml -925 ml 827.3 ml RIDGE OROPEZA MD Jan 13, 2019 09:40
[2019-01-13] MEDS ORDERED: CEPH-264 PO (09:43)
--- NOTE | 2019-01-13 10:01 | PDOC ---
SUBJECTIVE ROS No complaints OBJECTIVE Vital Signs Vital Signs Date Time Temp Pulse Resp B/P (MAP) Pulse Ox O2 Delivery O2 Flow Rate FiO2 01/13/19 08:27 71 167/83 01/13/19 07:41 Room Air 01/13/19 06:35 98.0 16 98 98.0 I & 0 Intake and Output 01/13/19 07:00 Intake Total 2877.3 ml Output Total 2375 ml Balance 502.3 ml Intake Oral 1500 ml IV Total 1377.3 ml Output Urine Total 2375 ml # Voids 5 PHYSICAL EXAM Physical Exam GEN: NAD HEEN: OM NECK: Supple CV : RRR RESP: CTA Bilat, No Acc. Muscle Use GI: BS + ve, Non Tender, Non Distended : No CVA tenderness, No Suprapubic Tenderness, No Angel NEURO- AXOX3 Derm - No Rash DIAGNOSIS/ASSESSMENT Assessment & Plan XUAN on CKD - baseline Creatinine in 1.8-2.4 Not on PIPER-I/ARB/Diuretics Hospitalization x 2 for XUAN in past Renal function improved with IVF close to baseline Hyperkalemia- Resolved CKD stage 4 Follows with our office, seen yesterday by F[employer]T FINISHING SUPERVISOR Sent to ED for Hyperkalemia UTI UA WBC's +, Esterase+, Nitrite -ve On Abx HTN -BP at goal Not on PIPER-I/ARB Metabolic acidosis- Chronic On PO Na HCo3 COMMENT/RELEVANT DATA Meds Current Medications Medications (Trade) Dose Ordered Sig/Katelynn Start Time Stop Time Status Last Admin Dose Admin Albuterol Sulfate (Ventolin Neb Soln) 10 mg 1X ONCE 01/11/19 19:30 01/11/19 19:31 DC 01/11/19 19:47 10 MG Amiodarone HCl (Cordarone) 200 mg DAILY 01/12/19 09:00 01/13/19 08:27 200 MG Apixaban (Eliquis) 2.5 mg BID 01/12/19 09:00 01/13/19 08:26 2.5 MG Atorvastatin Calcium (Lipitor) 20 mg HS 01/12/19 21:00 01/12/19 20:22 20 MG Calcium Gluconate (Calcium Gluconate) 1,000 mg 1X ONCE 01/11/19 19:30 01/11/19 19:31 DC 01/11/19 19:18 1,000 MG Ceftriaxone Sodium (Rocephin) 1 gm Q24H 4/10/19 18:00 01/12/19 17:35 1 GM Dextrose (Dextrose 50%-Water Syringe) 25 gm 1X ONCE 01/11/19 19:30 01/11/19 19:31 DC 01/11/19 19:32 25 GM Diltiazem HCl (Cardizem 24hr Cd) 240 mg DAILY 01/12/19 09:00 01/13/19 08:26 240 MG Info (Anti-Coagulation Monitoring By Pharmacy) 1 each PRN DAILY PRN 01/12/19 15:15 01/13/19 08:17 1 EACH Insulin Human Regular (HumuLIN R VIAL) 10 unit 1X ONCE 01/11/19 19:30 01/11/19 19:31 DC 01/11/19 19:30 10 UNIT Lactobacillus Rhamnosus (Culturelle) 1 cap BID 01/12/19 21:00 01/13/19 08:26 1 CAP Magnesium Sulfate 50 ml @ 25 mls/hr 1X ONCE 01/12/19 10:00 01/12/19 11:59 DC 01/12/19 10:45 25 MLS/HR Metronidazole (Flagyl) 2,000 mg 1X ONCE 01/11/19 20:45 01/11/19 20:49 DC 01/11/19 20:47 2,000 MG Sodium Polystyrene Sulfonate (Kayexalate) 30 gm 1X ONCE 01/11/19 20:45 01/11/19 20:46 DC 01/11/19 20:48 30 GM Sodium Bicarbonate (Sodium Bicarbonate) 650 mg BID 01/12/19 09:00 01/13/19 08:26 650 MG Sodium Bicarbonate (Sodium Bicarb Adult 8.4% Syr) 50 meq 1X ONCE 01/11/19 19:30 01/11/19 19:31 DC 01/11/19 19:26 50 MEQ Sodium Chloride 1,000 ml @ 75 mls/hr [id number] 01/12/19 10:00 01/12/19 23:30 75 MLS/HR Lab Laboratory Tests Test 01/13/19 03:20 Sodium Level 145 mmol/L (136-145) Potassium Level 4.6 mmol/L (3.5-5.1) Chloride Level 112 mmol/L (98-107) Carbon Dioxide Level 18 mmol/L (21-32) Anion Gap 15 (6-14) Blood Urea Nitrogen 39 mg/dL (8-26) Creatinine 2.5 mg/dL (0.7-1.3) Estimated GFR (Cockcroft-Gault) 29.9 Glucose Level 79 mg/dL (70-99) Calcium Level 6.9 mg/dL (8.5-10.1) Magnesium Level 1.9 mg/dL (1.8-2.4) Results All relevant outside records, renal labs, imaging studies, telemetry/EKG's were reviewed. NATHEN RANKIN MD Jan 13, 2019 10:01
[2019-01-13 10:59] VITALS: BP 134/80
--- NOTE | 2019-01-13 13:47 | NUR ---
Discharge Note: [facility]O YI [address] Discharge instructions and discharge home medications reviewed with Patient and Daughter and a copy given. All questions have been answered and understanding verbalized. The following instructions and handouts were given: hyperkalemia, renal diet non dialysis, keflex Discontinued lines and drains: Peripheral IV intact. Patient discharged to Home or Self Care with Family Member via Wheelchair
--- NOTE | 2019-01-18 15:47 | PDOC ---
Provider Note Provider Note Discharge summary dictated. #[id number]. RIDGE OROPEZA MD Jan 18, 2019 15:47
--- NOTE | 2019-01-18 16:36 | DS ---
DATE OF DISCHARGE: 01/13/2019 CONSULTATION: Dr. Zeng. REASON FOR ADMISSION TO THE HOSPITAL: Hyperkalemia, acute on chronic kidney failure. HOSPITAL COURSE: The patient is an 83-year-old male. The patient has polycystic kidneys and also chronic kidney disease, usually around 2.5, his baseline. He also sees Nephrology. They did routine labs. His potassium was 6.3, was recommended to come to the hospital. In the Emergency Room, the patient was given Kayexalate, insulin, sodium bicarbonate and his potassium came down to 5.1, later on went down to 4.6. The patient was given IV fluids. His creatinine was 3.1, went down to 2.5 with fluids, his base line and the patient was discharged . Pt was seen by Renal. FINAL DIAGNOSES: 1. Hyperkalemia. Potassium 6.3. 2. Acute on chronic kidney failure. cr2.5 base line. 3. Polycystic kidneys. 4. Hypertension. 5. Chronic atrial fibrillation, rate controlled,on eliquis for anticoagulation PLAN: At this time, low-potassium diet, monitor electrolytes periodically, follow with kidney doctor and the patient is adequately rate controlled, anticoagulation with Eliquis. RIDGE OROPEZA MD DR: BALAJI/tea JOB#: [id number] / [id number] RACHID
== END 2019-01-13 13:48 | disposition home or self-care (01) | DRG 640 ==
LOC: ER 17:12 → 2 SOUTH 19:35
PROVIDERS: ADMIT Internal Medicine; ATTEND Internal Medicine
DX: E87.5 Hyperkalemia (principal); N17.0 Acute kidney failure with tubular necrosis; Q61.3 Polycystic kidney, unspecified; N39.0 Urinary tract infection, site not specified; N18.4 Chronic kidney disease, stage 4 (severe); E87.2 Acidosis; E11.22 Type 2 diabetes mellitus with diabetic chronic kidney disease; I12.9 Hypertensive chronic kidney disease with stage 1 through stage 4 chronic kidney disease, or unspecified chronic kidney disease; I48.2 Chronic atrial fibrillation; J44.9 Chronic obstructive pulmonary disease, unspecified; Z96.649 Presence of unspecified artificial hip joint; M19.90 Unspecified osteoarthritis, unspecified site; Z91.81 History of falling; Z82.49 Family history of ischemic heart disease and other diseases of the circulatory system; Z87.891 Personal history of nicotine dependence; I25.2 Old myocardial infarction
CPT/HCPCS: 36415; 71045; 80048; 80053; 81001; 82550; 83735; 83880; 84484; 85025; 87086; 93005; 94644; 94760; 96374; 96375; J0610; J0696; J1815; J3475; J7030; J7042; J7613; 99285-25